=== PATIENT | female | born 1950 | race Hispanic/Latino ===

== ENCOUNTER 2017-08-08 06:05 | Inpatient (IN) | payer BC, MEDICARE ==
[2017-08-04 11:42] VITALS: BMI 40.1
[2017-08-08] MEDS ORDERED: Lidocaine 4% (Laryng-O-Jet) Kit MM ONE (07:17)
[2017-08-08] MEDS ORDERED: Succinylcholine 200 mg/10 ml Inj IV ONE (07:17)
[2017-08-08] MEDS ORDERED: Rocuronium 10 mg/ml (5 ml) ONE ×2 (07:17→10:19)
[2017-08-08] MEDS ORDERED: Etomidate 20 mg/10ml Inj IV ONE (07:18)
[2017-08-08] MEDS ORDERED: Lactated Ringer's 1,000 ML IV ONE ×3 (08:40→11:27)
[2017-08-08] MEDS ORDERED: Midazolam 2 MG/2 ML VIAL ONE (08:45)
[2017-08-08] MEDS ORDERED: Morphine 1 mg/ml preservative-free Inj(Duramorph) ONE (08:45)
[2017-08-08] MEDS ORDERED: ePHEDrine 50 mg/ml Inj ONE (09:26)
[2017-08-08] MEDS ORDERED: Desflurane Inhalation Anesthetic Liq (240 ml) ONE (10:32)
[2017-08-08] MEDS ORDERED: Neostigmine 1:1000 (1 mg/ml) Inj ONE (11:26)
[2017-08-08] MEDS ORDERED: Dexamethasone 4 mg/1 ml ONE (11:34)
[2017-08-08] MEDS ORDERED: Morphine 4 MG/ML VIAL IVP PRN (12:00)
--- NOTE | 2017-08-08 13:29 | PCM.SURG1 ---
Surgeon's Initial Post Op Note - Surgeon's Notes Surgeon: Lenin Ogden MD Taxi Driver Supervisor: Maylin Avila PA-C; Esther Rousseau Type of Anesthesia: General Endo, Spinal Pre-Operative Diagnosis: Right Hip Osteoarthritis Operative Findings: see op report Post-Operative Diagnosis: same as pre-op dx Operation Performed: R THR Specimen/Specimens Removed: right hip femoral head and soft tissue Estimated Blood Loss: EBL {In ML}: 200 Date of Surgery/Procedure: 08/08/17 Time of Surgery/Procedure: 09:45
[2017-08-08] MEDS ORDERED: Oxycodone/Acetaminophen 5/325 mg Tab PO PRN (13:35)
--- NOTE | 2017-08-08 14:34 | RAD ---
PROCEDURE: Left Hip X-ray Radiographs. HISTORY: s/p RTHR COMPARISON: None. FINDINGS: BONES: The pelvic ring is intact. There is no acute fracture or bone destruction. JOINTS: Status post total right hip arthroplasty. The left hip joint is preserved. SOFT TISSUES: There is soft tissue emphysema in the right periarticular soft tissues. OTHER FINDINGS: None. IMPRESSION: Status post total right hip arthroplasty with postsurgical changes in the periarticular soft tissues . No acute complications.
--- NOTE | 2017-08-08 15:10 | OP ---
PROCEDURE DATE: 08/08/2017 PREOPERATIVE DIAGNOSIS: Right hip osteoarthritis. POSTOPERATIVE DIAGNOSIS: Right hip osteoarthritis. PROCEDURE: Right total hip replacement. ATTENDING SURGEON: Lenin Ogden MD MANAGING CONSULTANT: Maylin Rodrigues PA-C IMPLANTS SIZE: Stoney 48 mm Tritanium cup, size 7 Accolade II stem with high-offset, MDM liner with 0 neck length. ANESTHESIA TYPE: Spinal and general. ESTIMATED BLOOD LOSS: 300 mL. COMPLICATIONS: None. HISTORY: Patient with long standing history of right hip pain refractory of conservative management. X-ray had shown significant loss of joint space. After the failure of extensive conservative management, I had offered the patient the treatment option of total hip replacement. I reviewed the risk and benefits of the surgery with the patient in detail. The risks include, but not limited to bleeding, infection, nerve vessel damage, continuous pain, blood loss, instability, dislocation, iatrogenic fracture, blood clots, need for further surgery, and even . The patient fully understood the risks and benefits and opted to proceed. Patient underwent necessary preoperative medical workup and once medically cleared, was scheduled for the procedure. DESCRIPTION OF PROCEDURE: On the day of the surgery, the patient was admitted to preoperative holding area. A laterality sheet was completed, confirming correct operative site. An informed consent was signed from the patient and the correct operative hip was marked. Patient was brought into the operating room table. He underwent general anesthesia and spinal anesthesia. Afterwards, the patient was placed on the operating room table in lateral decubitus position. All the bony prominences were well padded and an axillary roll was also placed. The hip was draped and prepped in the standard sterile manner. Timeout was completed, confirming correct operative site. We proceeded with Navigation assisted total hip replacement. Two pins were placed in the iliac crest to attach the antenna. Additional checkpoint was placed on the greater trochanter and on top of the acetabular roof. We utilized a standard postero-lateral approach. Using a #10 blade, a skin incision was made. The soft tissue dissection was taken down until the IT band fascia was identified incised along it's fibers. The short external rotators were exposed and excised with the capsule. It was tagged wit heavy sutures preserved for a later repair. Afterwards, the hip was dislocated and proposed neck cut was made. The Acetabulum was exposed using standard retractors. The remnant of torn labrum was excised along with pulvinar. The acetabulum was reamed using motorized reamers to the size that provide adequate depth and coverage. Next, 48 mm cup was securely fixed in to the acetabular socket in appropriate version and inclination. A polyethylene liner was secured in to the acetubular cup. The femoral canal was exposed using standard retractors. Using the box chisel, lateral femoral neck was removed. Femoral canal was broached up to size 7 stem, which provide a secure fit and adequate fill of femoral canal. A high-offset trial neck was secured onto the broach. Different trial heads with variable neck lengths were secured onto the trial neck. The hip was reduced and taken through extensive range of motion to test stability, soft tissue tensioning and leg length. It was noted the MDM liner with 0 neck length provide adequate stability, soft tissue tensioning and length. Next, size 7 stem with high-offset was securely fixed, then a MDM liner with 0 neck length was secured onto the neck of femoral stem. Hip was reduced and taken through final range of motion to assess for stability, soft tissue tensioning and leg length which was found to be satisfactory. Finally, the wound was copiously irrigated using pulse lavage solution. All loose bodies were removed. The short external rotators were repaired to greater trochanter using drill holes and heavy sutures. IT band fascia was tightly closed using heavy sutures and rest the wound was closed standard manner. Sterile dressing was applied. Patient was transferred to stretcher. Post-op instructions included posterior hip precautions. During this procedure, I was assisted by Maylin Rodrigues PA-C, who assisted in positioning the patient on the operating room table as well as transferring the patient from the operating room table to the recovery room stretcher. In addition, Maylin Rodrigues PA-C assisted me during the actual operative procedure by positioning, protecting critical neurovascular structures, exposure of the joint, and proper positioning of the implants. The presence of Maylin Rodrigues PA-C as my operative accounting administrative assistant was medically necessary to ensure the utmost safety of the patient in the pre, intra-, and post-operative periods. Due to the patient's morbid obesity, this procedure was more difficult than a standard knee arthroscopy. This required extra time during prepping and draping, as well as an extended operative time. The length of the case was prolonged by 50%. Lenin Ogden MD
--- NOTE | 2017-08-08 15:40 | CP.PCM.HP ---
<Dago Hollins - Last Filed: 08/08/17 15:38> History of Present Illness - History of Present Illness History of Present Illness: CC: Right total hip replacement HPI: 67 y/o woman w/ pmh of HTN and DM2 presents for right total hip replacement. The patient is in PACU recovering and reports no complaints other than mild pain after the procedure. The patient denies headaches, chest pain, SOB, abdominal pain, nausea, vomiting, or fever. PMD: Dr. Jose PMH: HTN, DM2 meds: see med list PSH: lumbar spinal fusion 2015, cervical spinal fusion 2012 Fam: denies SOC: denies smoking, alcohol, and drugs ROS: 12 points assessed and negative unless otherwise reported in HPI Present on Admission - Present on Admission Any Indicators Present on Admission: No History of DVT/PE: No History of Uncontrolled Diabetes: No Urinary Catheter: No Decubitus Ulcer Present: No Review of Systems - Review of Systems All systems: reviewed and no additional remarkable complaints except - Constitutional Constitutional: absent: Chills, Fever - EENT Eyes: absent: Change in Vision - Cardiovascular Cardiovascular: absent: Chest Pain - Respiratory Respiratory: absent: Dyspnea, Wheezing - Gastrointestinal Gastrointestinal: absent: Abdominal Pain, Diarrhea, Nausea, Vomiting - Genitourinary Genitourinary: absent: Dysuria - Integumentary Integumentary: absent: Rash - Neurological Neurological: absent: Dizziness Past Patient History - Past Medical History & Family History Past Medical History?: Yes - Past Social History Smoking Status: Never Smoked - CARDIAC Hx Cardiac Disorders: Yes Hx Congestive Heart Failure: No Hx Hypercholesterolemia: Yes Hx Hypertension: Yes - PULMONARY Hx Respiratory Disorders: No Hx Chronic Obstructive Pulmonary Disease (COPD): No - NEUROLOGICAL Hx Neurological Disorder: No HX Cerebrovascular Accident: No - HEENT Hx HEENT Problems: No - RENAL Hx Chronic Kidney Disease: No Hx Renal Failure: No - ENDOCRINE/METABOLIC Hx Endocrine Disorders: Yes Hx Diabetes Mellitus Type 1: Yes Hx Diabetes Mellitus Type 2: Yes Hx Hypothyroidism: No - HEMATOLOGICAL/ONCOLOGICAL Hx Blood Disorders: No - INTEGUMENTARY Hx Dermatological Problems: No - MUSCULOSKELETAL/RHEUMATOLOGICAL Hx Musculoskeletal Disorders: Yes Hx Arthritis: Yes (knees,left hand) Hx Falls: No Hx Rheumatoid Arthritis: No - GASTROINTESTINAL Hx Gastrointestinal Disorders: No Hx Colitis: Yes Hx Gastritis: Yes Other/Comment: Stomach mass - GENITOURINARY/GYNECOLOGICAL Hx Genitourinary Disorders: No - PSYCHIATRIC Hx Psychophysiologic Disorder: No Hx Substance Use: No - SURGICAL HISTORY Hx Surgeries: Yes Hx Hysterectomy: Yes Other/Comment: laminectomy,cervical neck disection - ANESTHESIA Hx Anesthesia: Yes Hx Anesthesia Reactions: No Hx Malignant Hyperthermia: No Has any member of the family had a problem w/ anesthesia?: No Meds Allergies/Adverse Reactions: Allergies Allergy/AdvReac Type Severity Reaction Status Date / Time No Known Allergies Allergy Verified 08/08/17 07:50 Physical Exam - Constitutional Appears: Non-toxic, No Acute Distress - Head Exam Head Exam: ATRAUMATIC, NORMAL INSPECTION, NORMOCEPHALIC - Eye Exam Eye Exam: Normal appearance - ENT Exam ENT Exam: Mucous Membranes Moist - Neck Exam Neck exam: Positive for: Full Rom. Negative for: Tenderness - Respiratory Exam Respiratory Exam: Clear to Auscultation Bilateral, NORMAL BREATHING PATTERN. absent: Decreased Breath Sounds, Rales, Rhonchi, Wheezes, Respiratory Distress - Cardiovascular Exam Cardiovascular Exam: REGULAR RHYTHM. absent: Tachycardia - GI/Abdominal Exam GI & Abdominal Exam: Normal Bowel Sounds, Soft. absent: Distended, Tenderness - Extremities Exam Extremities exam: Negative for: calf tenderness, tenderness Additional comments: right hip total replacement dressed, c/d/i - Neurological Exam Neurological exam: Alert, Oriented x3 - Skin Skin Exam: Dry, Intact, Normal Color, Warm Results - Vital Signs Recent Vital Signs: Last Vital Signs Temp 98.6 F 08/08/17 15:22 Pulse 55 L 08/08/17 15:22 Resp 18 08/08/17 15:22 BP 122/72 08/08/17 15:22 Pulse Ox 98 08/08/17 15:22 - Labs Labs: Laboratory Results - last 24 hr 08/08/17 08/08/17 08/08/17 06:50 07:42 12:09 POC Glucose (mg/dL) 114 H 107 Blood Type A POSITIVE Antibody Screen Negative Crossmatch See Detail BBK History Checked Patient has bt Assessment & Plan (1) Status post right hip replacement Status: Acute (2) Diabetes mellitus Status: Chronic Priority: Low (3) Hypertension Status: Chronic Priority: Low - Assessment and Plan (Free Text) Plan: c/w present management pain management - oxycontin 10 mg PO Q12h - percocet 1 tab PO Q4h prn - toradol 15 mg IM Q8h IVF LR @ 100mL/H <Chevy Jose L - Last Filed: 08/10/17 20:39> Results - Vital Signs Recent Vital Signs: Last Vital Signs Temp 98.2 F 08/10/17 18:10 Pulse 94 H 08/10/17 16:37 Resp 18 08/10/17 16:01 BP 98/63 L 08/10/17 16:40 Pulse Ox 93 L 08/10/17 16:01 - Labs Result Diagrams: 08/10/17 05:30 08/10/17 05:30 Labs: Laboratory Results - last 24 hr 08/09/17 08/10/17 08/10/17 21:50 05:30 05:30 WBC 9.6 RBC 3.12 L Hgb 9.3 L Hct 27.8 L MCV 89.0 MCH 29.8 MCHC 33.5 RDW 13.9 Plt Count 101 L D MPV 11.4 Neut % (Auto) 78.3 H Lymph % (Auto) 10.0 L [place] % (Auto) 10.6 H Eos % (Auto) 0.8 Baso % (Auto) 0.3 Neut # (Auto) 7.5 H Lymph # (Auto) 1.0 [place] # (Auto) 1.0 H Eos # (Auto) 0.1 Baso # (Auto) 0.0 Sodium 138 Potassium 4.2 Chloride 103 Carbon Dioxide 24 Anion Gap 15 BUN 28 H Creatinine 1.9 H Est GFR ( Amer) 32 Est GFR (Non-Af Amer) 26 POC Glucose (mg/dL) 160 H Random Glucose 125 H Calcium 8.7 08/10/17 08/10/17 08/10/17 05:55 10:40 15:50 WBC RBC Hgb Hct MCV MCH MCHC RDW Plt Count MPV Neut % (Auto) Lymph % (Auto) [place] % (Auto) Eos % (Auto) Baso % (Auto) Neut # (Auto) Lymph # (Auto) [place] # (Auto) Eos # (Auto) Baso # (Auto) Sodium Potassium Chloride Carbon Dioxide Anion Gap BUN Creatinine Est GFR ( Amer) Est GFR (Non-Af Amer) POC Glucose (mg/dL) 121 H 207 H 143 H Random Glucose Calcium Assessment & Plan - Assessment and Plan (Free Text) Plan: I was present during evaluation and discussed with DR Gurvinder benjamin of [facility] and mgt. Chevy Jose M.D.
[2017-08-08] MEDS: Lactated Ringer's 1,000 ML IV SCH ×2 (16:44→22:00)
[2017-08-08] MEDS ORDERED: ceFAZolin 1 GM in Sodium Chloride 0.9% 100 ML IVPB ONE (17:30)
[2017-08-08] MEDS: oxyCODONE 10 mg ER Tab (oxyCONTIN) PO SCH (21:24)
[2017-08-09] MEDS ORDERED: ceFAZolin 1 GM in Sodium Chloride 0.9% 100 ML IVPB ONE (01:30)
[2017-08-09] MEDS: Lactated Ringer's 1,000 ML IV SCH ×3 (07:01→20:51)
[2017-08-09 07:06] LABS: BASO % 0.2 % (0.0-2.0); LYMPH # 0.7 K/uL (1.0-4.3); LYMPH % 4.8 % (20.0-40.0); MEAN CELL VOLUME 89.1 fl (81.0-99.0); MEAN CORPUSCULAR HEMOGLOBIN 29.9 pg (27.0-31.0); MEAN CORPUSCULAR HGB CONC 33.5 g/dL (33.0-37.0); MEAN PLATELET VOLUME 12.2 fl (7.2-11.7); MONO # 1.2 K/uL (0.0-0.8); MONO % 8.4 % (0.0-10.0); NEUT # 12.1 K/uL (1.8-7.0); NEUT % 86.6 % (50.0-75.0); PLATELET COUNT 157 K/uL (130-400); RBC 3.68 Mil/uL (3.80-5.20); RED CELL DISTRIBUTION WIDTH 13.9 % (11.5-14.5); WHITE BLOOD COUNT 13.9 K/uL (4.8-10.8)
[2017-08-09 07:12] LABS: CALCIUM 9.1 mg/dL (8.4-10.2)
[2017-08-09] MEDS: oxyCODONE 10 mg ER Tab (oxyCONTIN) PO SCH ×2 (08:54→20:51)
--- NOTE | 2017-08-09 08:57 | CP.PCM.PN ---
Subjective - Date & Time of Evaluation Date of Evaluation: 08/09/17 Time of Evaluation: 08:30 - Subjective Subjective: S/P RTHR POD#1 Pt seen and examined at bedside with Dr. Ogden, pt comfortable in bed Pt denies any current right hip pain, well controlled with pain meds Pt denies SOB, chest pain, N/V/D, numbness/tingling to RLE Objective - Vital Signs/Intake and Output Vital Signs (last 24 hours): Temp Pulse Resp BP Pulse Ox 97.9 F 88 20 102/68 94 L 08/09/17 08:09 08/09/17 08:09 08/09/17 08:09 08/09/17 08:09 08/09/17 08:09 - Medications Medications: Current Medications Acetaminophen (Tylenol 325mg Tab) 325 mg PO Q4 PRN PRN Reason: pain1-3 Celecoxib (Celebrex) 100 mg PO Q12 [facility] Last Admin: 08/09/17 08:44 Dose: 100 mg Docusate Sodium (Colace) 100 mg PO TID [facility] Last Admin: 08/09/17 08:44 Dose: 100 mg Enoxaparin Sodium (Lovenox) 30 mg SC DAILY [facility] PRN Reason: Protocol Lactated Ringer's (Lactated Ringer's) 1,000 mls @ 100 mls/hr IV .Q10H [facility] Last Admin: 08/09/17 07:01 Dose: 100 mls/hr Ketorolac Tromethamine (Toradol) 15 mg IM Q8 [facility] Stop: 08/10/17 23:59 Last Admin: 08/09/17 08:44 Dose: 15 mg Oxycodone HCl (Oxycontin Extended Release Tab) 10 mg PO Q12 [facility] Stop: 08/22/17 09:01 Last Admin: 08/08/17 21:24 Dose: 10 mg Oxycodone/Acetaminophen (Percocet 5/325 Mg Tab) 1 tab PO Q4 PRN PRN Reason: pain4-6 Stop: 08/11/17 13:36 - Labs Labs: 08/09/17 05:30 08/09/17 05:30 - Constitutional Appears: Well, No Acute Distress - Respiratory Exam Respiratory Exam: Clear to Ausculation Bilateral, NORMAL BREATHING PATTERN - Cardiovascular Exam Cardiovascular Exam: REGULAR RHYTHM, RRR - Extremities Exam Additional comments: RLE: Hip dressing C/D/I, pravena dressing in place, functioning well, no active drainage N/V intact distally Calves soft and nontender b/l Normal ROM at ankle Distal pulses wnl Assessment and Plan - Assessment and Plan (Free Text) Assessment: 67 yo F s/p RTHR POD#1 Plan: Pain Control DVT ppx- lovenox 40mg Daily Incentive Spirometer PT/OT- WBAT RLE Follow posterior hip precautions F/U labs
[2017-08-09 10:38] LABS: BANDS 4 % (0-2); HYPOCHROMIC SLIGHT; LYMPHOCYTE 2 % (20-50); MONOCYTE 3 % (0-10); NEUTROPHIL 91 % (42-75); PLATELET ESTIMATE NORMAL (NORMAL); TOTAL CELLS COUNTED 100
[2017-08-09] MEDS ORDERED: Glucagon Recombinant 1 mg Inj IM PRN (11:22)
[2017-08-09] MEDS ORDERED: Dextrose 50% SYRINGE Inj (50 ml) IV PRN (11:22)
[2017-08-09] MEDS: Insulin Regular 100 units/ml SC SCH ×3 (12:44→22:37)
--- NOTE | 2017-08-09 14:33 | CP.PCM.PN ---
<Dago Hollins - Last Filed: 08/09/17 14:30> Subjective - Date & Time of Evaluation Date of Evaluation: 08/09/17 Time of Evaluation: 11:05 - Subjective Subjective: Patient seen and examined this morning at bedside. There are no acute events overnight, NAD. Patient is s/p right total hip replacement POD1. The patient denies pain and is not requesting pain medication. Patient attempted to get up for physical therapy but became dizzy and needed to sit back down. Patient has wound vac w/ minimal drainage Objective - Vital Signs/Intake and Output Vital Signs (last 24 hours): Temp Pulse Resp BP Pulse Ox 97.9 F 88 20 102/68 94 L 08/09/17 09:00 08/09/17 08:09 08/09/17 08:09 08/09/17 08:09 08/09/17 08:09 - Medications Medications: Current Medications Acetaminophen (Tylenol 325mg Tab) 325 mg PO Q4 PRN PRN Reason: pain1-3 Amlodipine Besylate (Norvasc) 5 mg PO DAILY [facility] Last Admin: 08/09/17 11:22 Dose: Not Given Carvedilol (Coreg) 6.25 mg PO BID [facility] Celecoxib (Celebrex) 100 mg PO Q12 [facility] Last Admin: 08/09/17 08:44 Dose: 100 mg Dextrose (Dextrose 50% Inj) 0 ml IV STAT PRN; Protocol PRN Reason: Hypoglycemia Protocol Dextrose (Glutose 15) 0 gm PO ONCE PRN; Protocol PRN Reason: Hypoglycemia Protocol Docusate Sodium (Colace) 100 mg PO TID [facility] Last Admin: 08/09/17 12:43 Dose: 100 mg Enoxaparin Sodium (Lovenox) 30 mg SC DAILY [facility] PRN Reason: Protocol Epoetin Nish (Procrit) 10,000 unit SC TTS [facility] Ferrous Sulfate (Feosol) 325 mg PO TID [facility] Last Admin: 08/09/17 12:43 Dose: 325 mg Gabapentin (Neurontin) 300 mg PO HS [facility] Glipizide (Glucotrol) 5 mg PO DAILY [facility] Last Admin: 08/09/17 11:24 Dose: 5 mg Glucagon (Glucagen Diagnostic Kit) 0 mg IM STAT PRN; Protocol PRN Reason: Hypoglycemia Protocol Lactated Ringer's (Lactated Ringer's) 1,000 mls @ 150 mls/hr IV .Q6H40M [facility] Insulin Human Regular (Humulin R) 0 units SC ACHS [facility] PRN Reason: Protocol Last Admin: 08/09/17 12:44 Dose: 2 u Ketorolac Tromethamine (Toradol) 15 mg IM Q8 [facility] Stop: 08/10/17 23:59 Last Admin: 08/09/17 08:44 Dose: 15 mg Losartan Potassium (Cozaar) 25 mg PO DAILY [facility] Last Admin: 08/09/17 11:22 Dose: Not Given Oxycodone HCl (Oxycontin Extended Release Tab) 10 mg PO Q12 [facility] Stop: 08/22/17 09:01 Last Admin: 08/09/17 08:54 Dose: Not Given Oxycodone/Acetaminophen (Percocet 5/325 Mg Tab) 1 tab PO Q4 PRN PRN Reason: pain4-6 Stop: 08/11/17 13:36 - Labs Labs: 08/09/17 05:30 08/09/17 05:30 - Constitutional Appears: Non-toxic, No Acute Distress - Head Exam Head Exam: ATRAUMATIC, NORMAL INSPECTION, NORMOCEPHALIC - Eye Exam Eye Exam: Normal appearance - ENT Exam ENT Exam: Mucous Membranes Moist - Neck Exam Neck Exam: Full ROM. absent: Tenderness - Respiratory Exam Respiratory Exam: Clear to Ausculation Bilateral. absent: Accessory Muscle Use , Decreased Breath Sounds, Rales, Rhonchi, Wheezes, Respiratory Distress - Cardiovascular Exam Cardiovascular Exam: REGULAR RHYTHM. absent: Tachycardia - GI/Abdominal Exam GI & Abdominal Exam: Soft, Normal Bowel Sounds. absent: Distended, Tenderness - Extremities Exam Extremities Exam: absent: Calf Tenderness, Pedal Edema, Tenderness Additional comments: right hip dressing c/d/i, wound vac draining minimal fluid - Neurological Exam Neurological Exam: Alert, Awake, Oriented x3 - Skin Skin Exam: Dry, Intact, Normal Color, Warm Assessment and Plan (1) Status post right hip replacement Status: Acute (2) Diabetes mellitus Status: Chronic (3) Hypertension Status: Chronic - Assessment and Plan (Free Text) Plan: c/w present management pain management - oxycontin 10 mg PO Q12h - percocet 1 tab PO Q4h prn IVF LR @ 150mL/H Elevated Cr, hold NSAIDs Incentive Spirometer PT/OT- WBAT RLE F/U labs DVT ppx: lovenox 40mg SC Daily <Chevy Jose L - Last Filed: 08/10/17 20:40> Objective - Vital Signs/Intake and Output Vital Signs (last 24 hours): Temp Pulse Resp BP Pulse Ox 98.2 F 94 H 18 98/63 L 93 L 08/10/17 18:10 08/10/17 16:37 08/10/17 16:01 08/10/17 16:40 08/10/17 16:01 - Medications Medications: Current Medications Acetaminophen (Tylenol 325mg Tab) 325 mg PO Q4 PRN PRN Reason: pain1-3 Acetaminophen (Tylenol 325mg Tab) 650 mg PO Q4 PRN PRN Reason: Fever >100.4 F Last Admin: 08/10/17 17:20 Dose: 650 mg Amlodipine Besylate (Norvasc) 5 mg PO DAILY [facility] Last Admin: 08/10/17 11:53 Dose: 5 mg Amoxicillin/Clavulanate Potassium (Augmentin 875 Mg-125 Mg Tab) 1 tab PO Q12 [facility] PRN Reason: Protocol Carvedilol (Coreg) 6.25 mg PO BID [facility] Last Admin: 08/10/17 16:37 Dose: Not Given Dextrose (Dextrose 50% Inj) 0 ml IV STAT PRN; Protocol PRN Reason: Hypoglycemia Protocol Dextrose (Glutose 15) 0 gm PO ONCE PRN; Protocol PRN Reason: Hypoglycemia Protocol Docusate Sodium (Colace) 100 mg PO TID [facility] Last Admin: 08/10/17 16:34 Dose: 100 mg Enoxaparin Sodium (Lovenox) 30 mg SC DAILY [facility] PRN Reason: Protocol Last Admin: 08/10/17 11:56 Dose: 30 mg Epoetin Nish (Procrit) 10,000 unit SC TTS [facility] Last Admin: 08/10/17 12:05 Dose: 10,000 unit Ferrous Sulfate (Feosol) 325 mg PO TID [facility] Last Admin: 08/10/17 16:35 Dose: 325 mg Gabapentin (Neurontin) 300 mg PO HS [facility] Last Admin: 08/09/17 22:47 Dose: 300 mg Glipizide (Glucotrol) 5 mg PO DAILY [facility] Last Admin: 08/10/17 11:52 Dose: 5 mg Glucagon (Glucagen Diagnostic Kit) 0 mg IM STAT PRN; Protocol PRN Reason: Hypoglycemia Protocol Lactated Ringer's (Lactated Ringer's) 1,000 mls @ 150 mls/hr IV .Q6H40M [facility] Last Admin: 08/10/17 16:40 Dose: Not Given Insulin Human Regular (Humulin R) 0 units SC ACHS [facility] PRN Reason: Protocol Last Admin: 08/10/17 16:39 Dose: Not Given Losartan Potassium (Cozaar) 25 mg PO DAILY [facility] Last Admin: 08/10/17 11:52 Dose: 25 mg Oxycodone HCl (Oxycontin Extended Release Tab) 10 mg PO Q12 [facility] Stop: 08/22/17 09:01 Last Admin: 08/10/17 12:05 Dose: 10 mg Oxycodone/Acetaminophen (Percocet 5/325 Mg Tab) 1 tab PO Q4 PRN PRN Reason: pain4-6 Stop: 08/11/17 13:36 - Labs Labs: 08/10/17 05:30 08/10/17 05:30 Assessment and Plan - Assessment and Plan (Free Text) Plan: I was present during evaluation and discussed with Dr Hollins re plans of care and tx Chevy Jose M.D.
[2017-08-09] MEDS: Enoxaparin 30 mg Syringe SC SCH (22:48)
[2017-08-10] MEDS: Lactated Ringer's 1,000 ML IV SCH ×3 (03:36→16:40)
[2017-08-10 07:39] LABS: CALCIUM 8.7 mg/dL (8.4-10.2)
[2017-08-10 07:42] LABS: BASO % 0.3 % (0.0-2.0); EOS # 0.1 K/uL (0.0-0.7); EOS % 0.8 % (0.0-4.0); HEMOGLOBIN 9.3 g/dL (12.0-16.0); MEAN CORPUSCULAR HEMOGLOBIN 29.8 pg (27.0-31.0); MEAN CORPUSCULAR HGB CONC 33.5 g/dL (33.0-37.0); MEAN PLATELET VOLUME 11.4 fl (7.2-11.7); MONO % 10.6 % (0.0-10.0); NEUT # 7.5 K/uL (1.8-7.0); NEUT % 78.3 % (50.0-75.0); RBC 3.12 Mil/uL (3.80-5.20); RED CELL DISTRIBUTION WIDTH 13.9 % (11.5-14.5); WHITE BLOOD COUNT 9.6 K/uL (4.8-10.8)
[2017-08-10] MEDS: Insulin Regular 100 units/ml SC SCH ×3 (08:14→16:39)
[2017-08-10] MEDS ORDERED: EPOETIN ALFA 10,000 UNIT/ML ML SC SCH (09:00)
[2017-08-10 09:06] VITALS: PULSE 94
--- NOTE | 2017-08-10 09:36 | CP.PCM.PN ---
<Dago Hollins - Last Filed: 08/10/17 14:52> Subjective - Date & Time of Evaluation Date of Evaluation: 08/10/17 Time of Evaluation: 08:50 - Subjective Subjective: Patient seen and examined this morning at bedside. There are no acute events overnight, NAD. Patient is s/p right total hip replacement POD2. The patient denies pain and is not requesting pain medication. Patient tried PT again and was able to participate. Wound vac draining minimal serosanguinous fluid. Patient has no complaints. Objective - Vital Signs/Intake and Output Vital Signs (last 24 hours): Temp Pulse Resp BP Pulse Ox 98.5 F 94 H 20 122/75 96 08/10/17 09:06 08/10/17 09:06 08/10/17 09:06 08/10/17 09:06 08/10/17 09:06 - Medications Medications: Current Medications Acetaminophen (Tylenol 325mg Tab) 325 mg PO Q4 PRN PRN Reason: pain1-3 Amlodipine Besylate (Norvasc) 5 mg PO DAILY [facility] Last Admin: 08/09/17 11:22 Dose: Not Given Carvedilol (Coreg) 6.25 mg PO BID [facility] Last Admin: 08/09/17 17:38 Dose: 6.25 mg Celecoxib (Celebrex) 100 mg PO Q12 [facility] Last Admin: 08/09/17 08:44 Dose: 100 mg Dextrose (Dextrose 50% Inj) 0 ml IV STAT PRN; Protocol PRN Reason: Hypoglycemia Protocol Dextrose (Glutose 15) 0 gm PO ONCE PRN; Protocol PRN Reason: Hypoglycemia Protocol Docusate Sodium (Colace) 100 mg PO TID [facility] Last Admin: 08/09/17 17:38 Dose: 100 mg Enoxaparin Sodium (Lovenox) 30 mg SC DAILY [facility] PRN Reason: Protocol Last Admin: 08/09/17 22:48 Dose: 30 mg Epoetin Nish (Procrit) 10,000 unit SC TTS [facility] Ferrous Sulfate (Feosol) 325 mg PO TID [facility] Last Admin: 08/09/17 17:38 Dose: 325 mg Gabapentin (Neurontin) 300 mg PO HS [facility] Last Admin: 08/09/17 22:47 Dose: 300 mg Glipizide (Glucotrol) 5 mg PO DAILY [facility] Last Admin: 08/09/17 11:24 Dose: 5 mg Glucagon (Glucagen Diagnostic Kit) 0 mg IM STAT PRN; Protocol PRN Reason: Hypoglycemia Protocol Lactated Ringer's (Lactated Ringer's) 1,000 mls @ 150 mls/hr IV .Q6H40M [facility] Last Admin: 08/10/17 03:36 Dose: 150 mls/hr Insulin Human Regular (Humulin R) 0 units SC ACHS [facility] PRN Reason: Protocol Last Admin: 08/09/17 22:37 Dose: Not Given Ketorolac Tromethamine (Toradol) 15 mg IM Q8 [facility] Stop: 08/10/17 23:59 Last Admin: 08/09/17 08:44 Dose: 15 mg Losartan Potassium (Cozaar) 25 mg PO DAILY [facility] Last Admin: 08/09/17 11:22 Dose: Not Given Oxycodone HCl (Oxycontin Extended Release Tab) 10 mg PO Q12 [facility] Stop: 08/22/17 09:01 Last Admin: 08/09/17 20:51 Dose: 10 mg Oxycodone/Acetaminophen (Percocet 5/325 Mg Tab) 1 tab PO Q4 PRN PRN Reason: pain4-6 Stop: 08/11/17 13:36 - Labs Labs: 08/10/17 05:30 08/10/17 05:30 - Constitutional Appears: Non-toxic, No Acute Distress - Head Exam Head Exam: ATRAUMATIC, NORMAL INSPECTION, NORMOCEPHALIC - Eye Exam Eye Exam: Normal appearance - ENT Exam ENT Exam: Mucous Membranes Moist - Neck Exam Neck Exam: Full ROM. absent: Tenderness - Respiratory Exam Respiratory Exam: Clear to Ausculation Bilateral. absent: Accessory Muscle Use , Decreased Breath Sounds, Rales, Rhonchi, Wheezes - Cardiovascular Exam Cardiovascular Exam: REGULAR RHYTHM. absent: Tachycardia - GI/Abdominal Exam GI & Abdominal Exam: Soft, Normal Bowel Sounds. absent: Distended, Tenderness - Extremities Exam Extremities Exam: absent: Calf Tenderness, Pedal Edema, Tenderness Additional comments: right hip dressing c/d/i, wound vac draining minimal fluid - Neurological Exam Neurological Exam: Alert, Awake, Oriented x3 - Skin Skin Exam: Dry, Intact, Normal Color, Warm Assessment and Plan (1) Status post right hip replacement Status: Acute (2) Diabetes mellitus Status: Chronic (3) Hypertension Status: Chronic - Assessment and Plan (Free Text) Plan: c/w present management pain management - oxycontin 10 mg PO Q12h - percocet 1 tab PO Q4h prn IVF LR @ 150mL/H Elevated Cr, hold NSAIDs Incentive Spirometer PT/OT- WBAT RLE F/U labs DVT ppx: lovenox 40mg SC Daily patient awaiting discharge to TCU <JoseChevy Nu - Last Filed: 08/10/17 20:41> Objective - Vital Signs/Intake and Output Vital Signs (last 24 hours): Temp Pulse Resp BP Pulse Ox 98.2 F 94 H 18 98/63 L 93 L 08/10/17 18:10 08/10/17 16:37 08/10/17 16:01 08/10/17 16:40 08/10/17 16:01 - Medications Medications: Current Medications Acetaminophen (Tylenol 325mg Tab) 325 mg PO Q4 PRN PRN Reason: pain1-3 Acetaminophen (Tylenol 325mg Tab) 650 mg PO Q4 PRN PRN Reason: Fever >100.4 F Last Admin: 08/10/17 17:20 Dose: 650 mg Amlodipine Besylate (Norvasc) 5 mg PO DAILY [facility] Last Admin: 08/10/17 11:53 Dose: 5 mg Amoxicillin/Clavulanate Potassium (Augmentin 875 Mg-125 Mg Tab) 1 tab PO Q12 [facility] PRN Reason: Protocol Carvedilol (Coreg) 6.25 mg PO BID [facility] Last Admin: 08/10/17 16:37 Dose: Not Given Dextrose (Dextrose 50% Inj) 0 ml IV STAT PRN; Protocol PRN Reason: Hypoglycemia Protocol Dextrose (Glutose 15) 0 gm PO ONCE PRN; Protocol PRN Reason: Hypoglycemia Protocol Docusate Sodium (Colace) 100 mg PO TID [facility] Last Admin: 08/10/17 16:34 Dose: 100 mg Enoxaparin Sodium (Lovenox) 30 mg SC DAILY [facility] PRN Reason: Protocol Last Admin: 08/10/17 11:56 Dose: 30 mg Epoetin Nish (Procrit) 10,000 unit SC TTS [facility] Last Admin: 08/10/17 12:05 Dose: 10,000 unit Ferrous Sulfate (Feosol) 325 mg PO TID [facility] Last Admin: 08/10/17 16:35 Dose: 325 mg Gabapentin (Neurontin) 300 mg PO HS [facility] Last Admin: 08/09/17 22:47 Dose: 300 mg Glipizide (Glucotrol) 5 mg PO DAILY [facility] Last Admin: 08/10/17 11:52 Dose: 5 mg Glucagon (Glucagen Diagnostic Kit) 0 mg IM STAT PRN; Protocol PRN Reason: Hypoglycemia Protocol Lactated Ringer's (Lactated Ringer's) 1,000 mls @ 150 mls/hr IV .Q6H40M [facility] Last Admin: 08/10/17 16:40 Dose: Not Given Insulin Human Regular (Humulin R) 0 units SC ACHS [facility] PRN Reason: Protocol Last Admin: 08/10/17 16:39 Dose: Not Given Losartan Potassium (Cozaar) 25 mg PO DAILY [facility] Last Admin: 08/10/17 11:52 Dose: 25 mg Oxycodone HCl (Oxycontin Extended Release Tab) 10 mg PO Q12 [facility] Stop: 08/22/17 09:01 Last Admin: 08/10/17 12:05 Dose: 10 mg Oxycodone/Acetaminophen (Percocet 5/325 Mg Tab) 1 tab PO Q4 PRN PRN Reason: pain4-6 Stop: 08/11/17 13:36 - Labs Labs: 08/10/17 05:30 08/10/17 05:30 Assessment and Plan - Assessment and Plan (Free Text) Plan: I was present during evaluation and discussed with Dr Hollins re plans of care and mgt. Chevy Jose M.D.
[2017-08-10] MEDS: Enoxaparin 30 mg Syringe SC SCH (11:56)
[2017-08-10] MEDS: oxyCODONE 10 mg ER Tab (oxyCONTIN) PO SCH ×2 (12:05→20:48)
[2017-08-10 16:02] VITALS: RESP 18; O2SAT 93
[2017-08-10 16:38] VITALS: BP 98/63
[2017-08-10 18:10] VITALS: TEMP 98.2
[2017-08-10] MEDS ORDERED: Amoxicillin-Clav 875-125 mg Tab PO SCH (21:00)
== END 2017-08-10 21:30 | DRG 470 ==
LOC: H.OPSURG 06:05 → H.MEDSURG1 13:29
PROVIDERS: ADMIT Family Medicine; ATTEND Family Medicine
PROC: 0SR902Z Replacement of Right Hip Joint with Metal on Polyethylene Synthetic Substitute, Open Approach (ICD-10-PCS; principal; 2017-08-08 08:45)
DX: M16.11 Unilateral primary osteoarthritis, right hip (principal); Z68.41 Body mass index [BMI] 40.0-44.9, adult; E66.01 Morbid (severe) obesity due to excess calories; I10 Essential (primary) hypertension; E11.9 Type 2 diabetes mellitus without complications; E78.00 Pure hypercholesterolemia, unspecified; K29.70 Gastritis, unspecified, without bleeding; Z79.4 Long term (current) use of insulin; Z98.1 Arthrodesis status; Z90.710 Acquired absence of both cervix and uterus

== ENCOUNTER 2017-08-10 11:59 | Inpatient (IN) | payer BC, OTHER ==
[2017-08-04 11:42] VITALS: BMI 40.1
[2017-08-10 22:52] VITALS: RESP 20
[2017-08-11] MEDS ORDERED: Oxycodone/Acetaminophen 5/325 mg Tab PO PRN (00:57)
[2017-08-11] MEDS ORDERED: Amoxicillin-Clav 875-125 mg Tab PO ONE (01:18)
[2017-08-11] MEDS ORDERED: Dextrose 50% SYRINGE Inj (50 ml) IVP PRN (02:46)
[2017-08-11] MEDS ORDERED: Glucagon Recombinant 1 mg Inj IM PRN (03:10)
[2017-08-11] MEDS: Insulin Regular 100 units/ml SC SCH ×4 (07:47→21:55)
[2017-08-11] MEDS: Amoxicillin-Clav 875-125 mg Tab PO SCH ×2 (08:30→21:55)
--- NOTE | 2017-08-11 08:30 | CP.PCM.HP ---
<Dago Hollins - Last Filed: 08/11/17 13:49> History of Present Illness - History of Present Illness History of Present Illness: HPI: 67 y/o woman w/ pmh of HTN and DM2 is admitted to TCU for continuation of physical therapy s/p right total hip replacement. The patient is POD3 and reports no complaints other than mild pain at the surgical site. The patient denies headaches, dizziness, chest pain, SOB, abdominal pain, nausea, vomiting, or fever. Present on Admission - Present on Admission Any Indicators Present on Admission: No History of DVT/PE: No History of Uncontrolled Diabetes: No Urinary Catheter: No Decubitus Ulcer Present: No Review of Systems - Review of Systems All systems: reviewed and no additional remarkable complaints except - Constitutional Constitutional: absent: Chills, Fever - EENT Eyes: absent: Change in Vision - Cardiovascular Cardiovascular: absent: Chest Pain - Respiratory Respiratory: absent: Dyspnea - Gastrointestinal Gastrointestinal: absent: Abdominal Pain, Diarrhea, Nausea, Vomiting - Genitourinary Genitourinary: absent: Dysuria - Integumentary Integumentary: absent: Rash - Neurological Neurological: absent: Dizziness, Headaches Past Patient History - Past Medical History & Family History Past Medical History?: Yes - Past Social History Smoking Status: Never Smoked - CARDIAC Hx Hypertension: Yes - PULMONARY Hx Respiratory Disorders: No Hx Chronic Obstructive Pulmonary Disease (COPD): No - NEUROLOGICAL Hx Neurological Disorder: No HX Cerebrovascular Accident: No - HEENT Hx HEENT Problems: No - RENAL Hx Chronic Kidney Disease: No Hx Renal Failure: No - ENDOCRINE/METABOLIC Hx Diabetes Mellitus Type 2: Yes - HEMATOLOGICAL/ONCOLOGICAL Hx Blood Disorders: No Hx AIDS: No Hx Human Immunodeficiency Virus (HIV): No - INTEGUMENTARY Hx Dermatological Problems: No - MUSCULOSKELETAL/RHEUMATOLOGICAL Hx Arthritis: Yes Hx Falls: No - GASTROINTESTINAL Hx Gastrointestinal Disorders: No Hx Colitis: Yes Hx Gastritis: Yes Other/Comment: Stomach mass - GENITOURINARY/GYNECOLOGICAL Hx Genitourinary Disorders: No - PSYCHIATRIC Hx Psychophysiologic Disorder: No Hx Substance Use: No - SURGICAL HISTORY Hx Surgeries: Yes Hx Hysterectomy: Yes Other/Comment: laminectomy,cervical neck disection - ANESTHESIA Hx Anesthesia: Yes Hx Anesthesia Reactions: No Hx Malignant Hyperthermia: No Meds Allergies/Adverse Reactions: Allergies Allergy/AdvReac Type Severity Reaction Status Date / Time No Known Allergies Allergy Verified 08/08/17 07:50 Physical Exam - Constitutional Appears: Non-toxic, No Acute Distress - Head Exam Head Exam: ATRAUMATIC, NORMAL INSPECTION, NORMOCEPHALIC - Eye Exam Eye Exam: Normal appearance - ENT Exam ENT Exam: Mucous Membranes Moist - Neck Exam Neck exam: Positive for: Full Rom. Negative for: Tenderness - Respiratory Exam Respiratory Exam: Clear to Auscultation Bilateral. absent: Accessory Muscle Use , Decreased Breath Sounds, Rales, Rhonchi, Wheezes, Respiratory Distress - Cardiovascular Exam Cardiovascular Exam: REGULAR RHYTHM. absent: Tachycardia - GI/Abdominal Exam GI & Abdominal Exam: Normal Bowel Sounds, Soft. absent: Distended, Tenderness - Extremities Exam Extremities exam: Negative for: calf tenderness, pedal edema Additional comments: right hip dressing c/d/i, wound vac draining minimal fluid - Neurological Exam Neurological exam: Alert, Oriented x3 - Skin Skin Exam: Dry, Intact, Normal Color, Warm Results - Vital Signs Recent Vital Signs: Last Vital Signs Temp 98.4 F 08/11/17 07:54 Pulse 82 08/11/17 07:54 Resp 20 08/11/17 07:54 BP 140/55 L 08/11/17 07:54 Pulse Ox 98 08/11/17 07:54 - Labs Result Diagrams: 08/11/17 10:30 08/11/17 10:30 Labs: Laboratory Results - last 24 hr 08/11/17 06:03 POC Glucose (mg/dL) 159 H Assessment & Plan (1) Status post right hip replacement Status: Acute (2) Diabetes mellitus Status: Chronic Priority: Low (3) Hypertension Status: Chronic Priority: Low - Assessment and Plan (Free Text) Plan: c/w present management, POD3 pain management - oxycontin 10 mg PO Q12h - percocet 1 tab PO Q4h prn - gabapentin 300 mg PO HS augmentin 875 mg PO Q12h day 1 Elevated Cr, hold NSAIDs, improved Cr 1.3 today c/w epoetin lori insulin correction scale hypoglycemic protocol Incentive Spirometer c/w PT/OT PT/OT- WBAT RLE DC zuniga DVT ppx: lovenox 40mg SC Daily <Chevy Jose - Last Filed: 08/12/17 23:26> Results - Vital Signs Recent Vital Signs: Last Vital Signs Temp 97.8 F 08/12/17 22:42 Pulse 60 08/12/17 22:42 Resp 20 08/12/17 22:42 BP 132/47 L 08/12/17 22:42 Pulse Ox 95 08/12/17 22:42 - Labs Result Diagrams: 08/11/17 10:30 08/11/17 10:30 Labs: Laboratory Results - last 24 hr 08/12/17 08/12/17 08/12/17 06:06 11:04 16:13 POC Glucose (mg/dL) 118 H 184 H 140 H Assessment & Plan - Assessment and Plan (Free Text) Plan: I was present during evaluation and discussed with Dr Hollins re plans of care and mgt. Chevy Jose M.D.
[2017-08-11] MEDS: Enoxaparin 30 mg Syringe SC SCH (08:32)
[2017-08-11] MEDS: oxyCODONE 10 mg ER Tab (oxyCONTIN) PO SCH ×2 (08:33→21:54)
[2017-08-11 11:23] LABS: HEMOGLOBIN 9.4 g/dL (12.0-16.0); MEAN CELL VOLUME 90.2 fl (81.0-99.0); MEAN CORPUSCULAR HEMOGLOBIN 29.5 pg (27.0-31.0); MEAN CORPUSCULAR HGB CONC 32.8 g/dL (33.0-37.0); RBC 3.18 Mil/uL (3.80-5.20); RED CELL DISTRIBUTION WIDTH 13.9 % (11.5-14.5); WHITE BLOOD COUNT 11.1 K/uL (4.8-10.8)
[2017-08-11 11:38] LABS: ALB/GLOB RATIO 0.9 (1.0-2.1); ALBUMIN 2.9 g/dL (3.5-5.0); CALCIUM 8.9 mg/dL (8.4-10.2)
--- NOTE | 2017-08-11 12:27 | CP.PCM.CON ---
History of Present Illness - History of Present Illness History of Present Illness: 67 year old female admitted for TCU, with right hip replacement, dm, htn Review of Systems - Musculoskeletal Musculoskeletal: Abnormal Gait, Muscle Weakness Past Patient History - Past Medical History & Family History Past Medical History?: Yes - Past Social History Smoking Status: Never Smoked - CARDIAC Hx Hypertension: Yes - PULMONARY Hx Respiratory Disorders: No Hx Chronic Obstructive Pulmonary Disease (COPD): No - NEUROLOGICAL Hx Neurological Disorder: No HX Cerebrovascular Accident: No - HEENT Hx HEENT Problems: No - RENAL Hx Chronic Kidney Disease: No Hx Renal Failure: No - ENDOCRINE/METABOLIC Hx Diabetes Mellitus Type 2: Yes - HEMATOLOGICAL/ONCOLOGICAL Hx Blood Disorders: No Hx AIDS: No Hx Human Immunodeficiency Virus (HIV): No - INTEGUMENTARY Hx Dermatological Problems: No - MUSCULOSKELETAL/RHEUMATOLOGICAL Hx Arthritis: Yes Hx Falls: No - GASTROINTESTINAL Hx Gastrointestinal Disorders: No Hx Colitis: Yes Hx Gastritis: Yes Other/Comment: Stomach mass - GENITOURINARY/GYNECOLOGICAL Hx Genitourinary Disorders: No - PSYCHIATRIC Hx Psychophysiologic Disorder: No Hx Substance Use: No - SURGICAL HISTORY Hx Surgeries: Yes Hx Hysterectomy: Yes Other/Comment: laminectomy,cervical neck disection - ANESTHESIA Hx Anesthesia: Yes Hx Anesthesia Reactions: No Hx Malignant Hyperthermia: No Meds Allergies/Adverse Reactions: Allergies Allergy/AdvReac Type Severity Reaction Status Date / Time No Known Allergies Allergy Verified 08/08/17 07:50 - Medications Medications: Current Medications Acetaminophen (Tylenol 325mg Tab) 325 mg PO Q4 PRN PRN Reason: pain1-3 Amlodipine Besylate (Norvasc) 5 mg PO DAILY [facility] Last Admin: 08/11/17 08:32 Dose: 5 mg Amoxicillin/Clavulanate Potassium (Augmentin 875 Mg-125 Mg Tab) 1 tab PO Q12 [facility] PRN Reason: Protocol Last Admin: 08/11/17 08:30 Dose: 1 tab Carvedilol (Coreg) 6.25 mg PO BID [facility] Last Admin: 08/11/17 08:31 Dose: 6.25 mg Dextrose (Dextrose 50% Inj) 50 ml IVP ONCE PRN; Protocol PRN Reason: Hypoglycemia Dextrose (Glutose 15) 15 gm PO ONCE PRN PRN Reason: Hypoglycemia Docusate Sodium (Colace) 100 mg PO TID [facility] Last Admin: 08/11/17 12:21 Dose: 100 mg Enoxaparin Sodium (Lovenox) 30 mg SC DAILY [facility] PRN Reason: Protocol Last Admin: 08/11/17 08:32 Dose: 30 mg Epoetin Nish (Procrit) 10,000 unit SC TTS [facility] Ferrous Sulfate (Feosol) 325 mg PO TID [facility] Last Admin: 08/11/17 12:21 Dose: 325 mg Gabapentin (Neurontin) 300 mg PO HS [facility] Glipizide (Glucotrol) 5 mg PO DAILY [facility] Last Admin: 08/11/17 08:31 Dose: 5 mg Glucagon (Glucagen Diagnostic Kit) 1 mg IM STAT PRN PRN Reason: Hypoglycemia Insulin Human Regular (Humulin R) 0 units SC ACHS [facility] PRN Reason: Protocol Last Admin: 08/11/17 11:50 Dose: 1 u Lactulose (Enulose) 20 gm PO DAILY PRN PRN Reason: Constipation Losartan Potassium (Cozaar) 25 mg PO DAILY [facility] Last Admin: 08/11/17 08:31 Dose: 25 mg Ondansetron HCl (Zofran Inj) 4 mg IVP Q6 PRN PRN Reason: Nausea/Vomiting Last Admin: 08/11/17 12:20 Dose: 4 mg Oxycodone HCl (Oxycontin Extended Release Tab) 10 mg PO Q12 [facility] Stop: 08/14/17 09:01 Last Admin: 08/11/17 08:33 Dose: 10 mg Oxycodone/Acetaminophen (Percocet 5/325 Mg Tab) 1 tab PO Q4 PRN PRN Reason: pain4-6 Stop: 08/14/17 00:58 Last Admin: 08/11/17 07:14 Dose: 1 tab Physical Exam - Head Exam Head Exam: ATRAUMATIC, NORMAL INSPECTION - Eye Exam Eye Exam: EOMI, Normal appearance, PERRL Pupil Exam: NORMAL ACCOMODATION, PERRL - ENT Exam ENT Exam: Mucous Membranes Moist, Normal Exam - Neck Exam Neck exam: Positive for: Normal Inspection - Respiratory Exam Respiratory Exam: NORMAL BREATHING PATTERN - Cardiovascular Exam Cardiovascular Exam: REGULAR RHYTHM - GI/Abdominal Exam GI & Abdominal Exam: Normal Bowel Sounds - Rectal Exam Rectal Exam: NORMAL INSPECTION - Exam External exam: NORMAL EXTERNAL EXAM - Extremities Exam Extremities exam: Positive for: normal inspection Additional comments: right leg weakness with hip is healing with dressing - Back Exam Back exam: NORMAL INSPECTION - Neurological Exam Neurological exam: Alert, CN II-XII Intact - Psychiatric Exam Psychiatric exam: Normal Affect, Normal Mood - Skin Skin Exam: Dry, Intact Results - Vital Signs Recent Vital Signs: Last Vital Signs Temp 98.4 F 08/11/17 07:54 Pulse 82 08/11/17 08:32 Resp 20 08/11/17 07:54 BP 140/55 L 08/11/17 08:32 Pulse Ox 98 08/11/17 07:54 - Labs Result Diagrams: 08/11/17 10:30 08/11/17 10:30 Labs: Laboratory Results - last 24 hr 08/11/17 08/11/17 08/11/17 06:03 10:30 10:30 WBC 11.1 H RBC 3.18 L Hgb 9.4 L Hct 28.7 L MCV 90.2 MCH 29.5 MCHC 32.8 L RDW 13.9 Plt Count 136 Sodium 140 Potassium 4.2 Chloride 102 Carbon Dioxide 27 Anion Gap 15 BUN 19 H Creatinine 1.3 H Est GFR ( Amer) 49 Est GFR (Non-Af Amer) 41 POC Glucose (mg/dL) 159 H Random Glucose 147 H Calcium 8.9 Total Bilirubin 0.9 AST 19 ALT 22 Alkaline Phosphatase 71 Total Protein 5.9 L Albumin 2.9 L Globulin 3.1 Albumin/Globulin Ratio 0.9 L 08/11/17 10:50 WBC RBC Hgb Hct MCV MCH MCHC RDW Plt Count Sodium Potassium Chloride Carbon Dioxide Anion Gap BUN Creatinine Est GFR ( Amer) Est GFR (Non-Af Amer) POC Glucose (mg/dL) 166 H Random Glucose Calcium Total Bilirubin AST ALT Alkaline Phosphatase Total Protein Albumin Globulin Albumin/Globulin Ratio Assessment & Plan (1) Acute on chronic renal failure Status: Acute Priority: High (2) Hypercholesterolemia Status: Acute (3) Status post right hip replacement Assessment and Plan: monitor the dressing, physical, occupational therapy pain meds for patinet Status: Acute (4) Chronic diarrhea Status: Chronic Priority: Medium (5) Diabetes mellitus Status: Chronic Priority: Low (6) Hypertension Status: Chronic Priority: Low
--- NOTE | 2017-08-11 12:29 | CP.PCM.PN ---
Subjective - Date & Time of Evaluation Date of Evaluation: 08/11/17 Time of Evaluation: 12:15 - Subjective Subjective: S/P RTHR POD#3 Pt seen and examined at bedside, comfortable in bed Pt c/o mild right hip pain, currently well controlled with pain meds Pt reports trouble urinating post-op, currently has zuniga in place Pt denies SOB, chest pain, N/V/D, numbness/tinlging to RLE Objective - Vital Signs/Intake and Output Vital Signs (last 24 hours): Temp Pulse Resp BP Pulse Ox 98.4 F 82 20 140/55 L 98 08/11/17 07:54 08/11/17 08:32 08/11/17 07:54 08/11/17 08:32 08/11/17 07:54 - Medications Medications: Current Medications Acetaminophen (Tylenol 325mg Tab) 325 mg PO Q4 PRN PRN Reason: pain1-3 Amlodipine Besylate (Norvasc) 5 mg PO DAILY [facility] Last Admin: 08/11/17 08:32 Dose: 5 mg Amoxicillin/Clavulanate Potassium (Augmentin 875 Mg-125 Mg Tab) 1 tab PO Q12 [facility] PRN Reason: Protocol Last Admin: 08/11/17 08:30 Dose: 1 tab Carvedilol (Coreg) 6.25 mg PO BID [facility] Last Admin: 08/11/17 08:31 Dose: 6.25 mg Dextrose (Dextrose 50% Inj) 50 ml IVP ONCE PRN; Protocol PRN Reason: Hypoglycemia Dextrose (Glutose 15) 15 gm PO ONCE PRN PRN Reason: Hypoglycemia Docusate Sodium (Colace) 100 mg PO TID [facility] Last Admin: 08/11/17 12:21 Dose: 100 mg Enoxaparin Sodium (Lovenox) 30 mg SC DAILY [facility] PRN Reason: Protocol Last Admin: 08/11/17 08:32 Dose: 30 mg Epoetin Nish (Procrit) 10,000 unit SC TTS [facility] Ferrous Sulfate (Feosol) 325 mg PO TID [facility] Last Admin: 08/11/17 12:21 Dose: 325 mg Gabapentin (Neurontin) 300 mg PO HS [facility] Glipizide (Glucotrol) 5 mg PO DAILY [facility] Last Admin: 08/11/17 08:31 Dose: 5 mg Glucagon (Glucagen Diagnostic Kit) 1 mg IM STAT PRN PRN Reason: Hypoglycemia Insulin Human Regular (Humulin R) 0 units SC ACHS MARY PRN Reason: Protocol Last Admin: 08/11/17 11:50 Dose: 1 u Lactulose (Enulose) 20 gm PO DAILY PRN PRN Reason: Constipation Losartan Potassium (Cozaar) 25 mg PO DAILY [facility] Last Admin: 08/11/17 08:31 Dose: 25 mg Ondansetron HCl (Zofran Inj) 4 mg IVP Q6 PRN PRN Reason: Nausea/Vomiting Last Admin: 08/11/17 12:20 Dose: 4 mg Oxycodone HCl (Oxycontin Extended Release Tab) 10 mg PO Q12 [facility] Stop: 08/14/17 09:01 Last Admin: 08/11/17 08:33 Dose: 10 mg Oxycodone/Acetaminophen (Percocet 5/325 Mg Tab) 1 tab PO Q4 PRN PRN Reason: pain4-6 Stop: 08/14/17 00:58 Last Admin: 08/11/17 07:14 Dose: 1 tab - Labs Labs: 08/11/17 10:30 08/11/17 10:30 - Constitutional Appears: Well, No Acute Distress - Respiratory Exam Respiratory Exam: Clear to Ausculation Bilateral, NORMAL BREATHING PATTERN - Cardiovascular Exam Cardiovascular Exam: REGULAR RHYTHM, RRR - Extremities Exam Additional comments: RLE: Dressing C/D/I, pravena in place and functioning well, no active drainage Calves soft and nontender b/l N/V intact distally Normal ROM at ankle Distal pulses wnl Assessment and Plan - Assessment and Plan (Free Text) Assessment: 67 yo F s/p RTHR POD#3 Plan: Pain Control DVT ppx- continue lovenox Urinary retention- zuniga to be d/aiden today, TOV PT/OT- WBAT RLE Continue current management Discussed with Dr. Ogden
[2017-08-12] MEDS: Insulin Regular 100 units/ml SC SCH ×3 (06:56→17:02)
[2017-08-12] MEDS: Amoxicillin-Clav 875-125 mg Tab PO SCH (08:06)
[2017-08-12] MEDS: Enoxaparin 30 mg Syringe SC SCH (08:06)
[2017-08-12] MEDS: oxyCODONE 10 mg ER Tab (oxyCONTIN) PO SCH ×2 (09:00→20:44)
[2017-08-12] MEDS: EPOETIN ALFA 10,000 UNIT/ML ML SC SCH (12:23)
--- NOTE | 2017-08-12 23:27 | CP.PCM.PN ---
Subjective - Date & Time of Evaluation Date of Evaluation: 08/12/17 Time of Evaluation: 18:30 - Subjective Subjective: Patient continues to have problems with urination Had urinary retention yesterday Has no fever Today has vague lower abd / pelvic pains. Objective - Vital Signs/Intake and Output Vital Signs (last 24 hours): Temp Pulse Resp BP Pulse Ox 97.8 F 60 20 132/47 L 95 08/12/17 22:42 08/12/17 22:42 08/12/17 22:42 08/12/17 22:42 08/12/17 22:42 - Medications Medications: Current Medications Acetaminophen (Tylenol 325mg Tab) 325 mg PO Q4 PRN PRN Reason: pain1-3 Last Admin: 08/12/17 17:36 Dose: 325 mg Amlodipine Besylate (Norvasc) 5 mg PO DAILY [facility] Last Admin: 08/12/17 08:08 Dose: 5 mg Carvedilol (Coreg) 6.25 mg PO BID [facility] Last Admin: 08/12/17 17:01 Dose: 6.25 mg Dextrose (Dextrose 50% Inj) 50 ml IVP ONCE PRN; Protocol PRN Reason: Hypoglycemia Dextrose (Glutose 15) 15 gm PO ONCE PRN PRN Reason: Hypoglycemia Docusate Sodium (Colace) 100 mg PO TID [facility] Last Admin: 08/12/17 17:00 Dose: 100 mg Enoxaparin Sodium (Lovenox) 30 mg SC DAILY [facility] PRN Reason: Protocol Last Admin: 08/12/17 08:06 Dose: 30 mg Epoetin Nish (Procrit) 10,000 unit SC TTS [facility] Last Admin: 08/12/17 12:23 Dose: 10,000 unit Ferrous Sulfate (Feosol) 325 mg PO TID [facility] Last Admin: 08/12/17 17:01 Dose: 325 mg Gabapentin (Neurontin) 300 mg PO HS [facility] Last Admin: 08/12/17 21:29 Dose: 300 mg Glipizide (Glucotrol) 5 mg PO DAILY [facility] Last Admin: 08/12/17 08:07 Dose: 5 mg Glucagon (Glucagen Diagnostic Kit) 1 mg IM STAT PRN PRN Reason: Hypoglycemia Insulin Human Regular (Humulin R) 0 units SC ACHS [facility] PRN Reason: Protocol Last Admin: 08/12/17 17:02 Dose: Not Given Lactulose (Enulose) 20 gm PO DAILY PRN PRN Reason: Constipation Losartan Potassium (Cozaar) 25 mg PO DAILY [facility] Last Admin: 08/12/17 08:07 Dose: 25 mg Ondansetron HCl (Zofran Tab) 4 mg PO Q6 [facility] Oxycodone HCl (Oxycontin Extended Release Tab) 10 mg PO Q12 [facility] Stop: 08/14/17 09:01 Last Admin: 08/12/17 20:44 Dose: 10 mg Pantoprazole Sodium (Protonix Ec Tab) 40 mg PO DAILY [facility] - Labs Labs: 08/11/17 10:30 08/11/17 10:30
[2017-08-13] MEDS: Insulin Regular 100 units/ml SC SCH ×5 (03:42→21:32)
[2017-08-13 07:57] LABS: HEMOGLOBIN 8.5 g/dL (12.0-16.0); MEAN CELL VOLUME 89.1 fl (81.0-99.0); MEAN CORPUSCULAR HEMOGLOBIN 30.2 pg (27.0-31.0); MEAN CORPUSCULAR HGB CONC 33.9 g/dL (33.0-37.0); RBC 2.81 Mil/uL (3.80-5.20); RED CELL DISTRIBUTION WIDTH 13.7 % (11.5-14.5); WHITE BLOOD COUNT 6.6 K/uL (4.8-10.8)
[2017-08-13] MEDS: oxyCODONE 10 mg ER Tab (oxyCONTIN) PO SCH ×2 (09:19→21:33)
[2017-08-13] MEDS: Enoxaparin 30 mg Syringe SC SCH (09:23)
[2017-08-13] MEDS: Pantoprazole 40 mg EC Tab PO SCH (09:26)
--- NOTE | 2017-08-13 10:04 | CP.PCM.PN ---
Subjective - Date & Time of Evaluation Date of Evaluation: 08/12/17 Time of Evaluation: 17:00 - Subjective Subjective: no acute complaints of hip pain Objective - Vital Signs/Intake and Output Vital Signs (last 24 hours): Temp Pulse Resp BP Pulse Ox 97.5 F L 71 20 111/48 L 96 08/13/17 08:12 08/13/17 09:22 08/13/17 08:12 08/13/17 09:22 08/13/17 08:12 - Medications Medications: Current Medications Acetaminophen (Tylenol 325mg Tab) 325 mg PO Q4 PRN PRN Reason: pain1-3 Last Admin: 08/12/17 17:36 Dose: 325 mg Amlodipine Besylate (Norvasc) 5 mg PO DAILY [facility] Last Admin: 08/13/17 09:21 Dose: 5 mg Carvedilol (Coreg) 6.25 mg PO BID [facility] Last Admin: 08/13/17 09:21 Dose: 6.25 mg Dextrose (Dextrose 50% Inj) 50 ml IVP ONCE PRN; Protocol PRN Reason: Hypoglycemia Dextrose (Glutose 15) 15 gm PO ONCE PRN PRN Reason: Hypoglycemia Docusate Sodium (Colace) 100 mg PO TID [facility] Last Admin: 08/13/17 09:20 Dose: 100 mg Enoxaparin Sodium (Lovenox) 30 mg SC DAILY [facility] PRN Reason: Protocol Last Admin: 08/13/17 09:23 Dose: 30 mg Epoetin Nish (Procrit) 10,000 unit SC TTS [facility] Last Admin: 08/12/17 12:23 Dose: 10,000 unit Ferrous Sulfate (Feosol) 325 mg PO TID [facility] Last Admin: 08/13/17 09:20 Dose: 325 mg Gabapentin (Neurontin) 300 mg PO HS [facility] Last Admin: 08/12/17 21:29 Dose: 300 mg Glipizide (Glucotrol) 5 mg PO DAILY [facility] Last Admin: 08/13/17 09:22 Dose: 5 mg Glucagon (Glucagen Diagnostic Kit) 1 mg IM STAT PRN PRN Reason: Hypoglycemia Insulin Human Regular (Humulin R) 0 units SC [facility] PRN Reason: Protocol Last Admin: 08/13/17 09:25 Dose: Not Given Lactulose (Enulose) 20 gm PO DAILY PRN PRN Reason: Constipation Losartan Potassium (Cozaar) 25 mg PO DAILY [facility] Last Admin: 08/13/17 09:22 Dose: 25 mg Ondansetron HCl (Zofran Tab) 4 mg PO Q6 [facility] Last Admin: 08/13/17 09:26 Dose: Not Given Oxycodone HCl (Oxycontin Extended Release Tab) 10 mg PO Q12 [facility] Stop: 08/14/17 09:01 Last Admin: 08/13/17 09:19 Dose: 10 mg Pantoprazole Sodium (Protonix Ec Tab) 40 mg PO DAILY [facility] Last Admin: 08/13/17 09:26 Dose: 40 mg - Labs Labs: 08/13/17 06:20 08/13/17 06:20 - Head Exam Head Exam: ATRAUMATIC, NORMAL INSPECTION, NORMOCEPHALIC - Eye Exam Eye Exam: EOMI, Normal appearance Pupil Exam: NORMAL ACCOMODATION, PERRL - ENT Exam ENT Exam: Mucous Membranes Moist, Normal Exam - Neck Exam Neck Exam: Normal Inspection - Respiratory Exam Respiratory Exam: NORMAL BREATHING PATTERN - Cardiovascular Exam Cardiovascular Exam: REGULAR RHYTHM - GI/Abdominal Exam GI & Abdominal Exam: Normal Bowel Sounds - Rectal Exam Rectal Exam: NORMAL INSPECTION - Exam External exam: NORMAL EXTERNAL EXAM - Extremities Exam Extremities Exam: Normal Capillary Refill, Normal Inspection - Back Exam Back Exam: NORMAL INSPECTION - Neurological Exam Neurological Exam: Alert, Awake Neuro motor strength exam: Left Upper Extremity: 4, Right Upper Extremity: 4, Left Lower Extremity: 4, Right Lower Extremity: 3 - Psychiatric Exam Psychiatric exam: Normal Affect, Normal Mood - Skin Skin Exam: Dry, Normal Color Assessment and Plan (1) Acute on chronic renal failure Status: Acute (2) Hypercholesterolemia Status: Acute (3) Status post right hip replacement Assessment & Plan: monitor right hip incision, plan for physical, occupational therapy program Status: Acute (4) Chronic diarrhea Status: Chronic (5) Diabetes mellitus Status: Chronic (6) Hypertension Status: Chronic
[2017-08-14] MEDS: Insulin Regular 100 units/ml SC SCH ×4 (06:41→21:43)
[2017-08-14] MEDS: Enoxaparin 30 mg Syringe SC SCH (08:16)
[2017-08-14] MEDS: Pantoprazole 40 mg EC Tab PO SCH (08:18)
[2017-08-14] MEDS: oxyCODONE 10 mg ER Tab (oxyCONTIN) PO SCH ×2 (08:24→22:00)
--- NOTE | 2017-08-14 11:02 | CP.PCM.PN ---
Subjective - Date & Time of Evaluation Date of Evaluation: 08/14/17 Time of Evaluation: 09:00 - Subjective Subjective: Patient seen and examined at bedside comfortable. Pain is well controlled. Zuniga still in place. No new complaints. Objective - Vital Signs/Intake and Output Vital Signs (last 24 hours): Temp Pulse Resp BP Pulse Ox 98.4 F 61 20 121/69 100 08/14/17 07:57 08/14/17 08:17 08/14/17 07:57 08/14/17 08:17 08/14/17 07:57 - Medications Medications: Current Medications Acetaminophen (Tylenol 325mg Tab) 325 mg PO Q4 PRN PRN Reason: pain1-3 Last Admin: 08/12/17 17:36 Dose: 325 mg Amlodipine Besylate (Norvasc) 5 mg PO DAILY [facility] Last Admin: 08/14/17 08:17 Dose: 5 mg Carvedilol (Coreg) 6.25 mg PO BID [facility] Last Admin: 08/14/17 08:13 Dose: 6.25 mg Dextrose (Dextrose 50% Inj) 50 ml IVP ONCE PRN; Protocol PRN Reason: Hypoglycemia Dextrose (Glutose 15) 15 gm PO ONCE PRN PRN Reason: Hypoglycemia Docusate Sodium (Colace) 100 mg PO TID [facility] Last Admin: 08/14/17 08:12 Dose: 100 mg Enoxaparin Sodium (Lovenox) 30 mg SC DAILY [facility] PRN Reason: Protocol Last Admin: 08/14/17 08:16 Dose: 30 mg Epoetin Nish (Procrit) 10,000 unit SC TTS [facility] Last Admin: 08/12/17 12:23 Dose: 10,000 unit Ferrous Sulfate (Feosol) 325 mg PO TID [facility] Last Admin: 08/14/17 08:16 Dose: 325 mg Gabapentin (Neurontin) 300 mg PO HS [facility] Last Admin: 08/13/17 21:33 Dose: 300 mg Glipizide (Glucotrol) 5 mg PO DAILY [facility] Last Admin: 08/14/17 08:16 Dose: 5 mg Glucagon (Glucagen Diagnostic Kit) 1 mg IM STAT PRN PRN Reason: Hypoglycemia Insulin Human Regular (Humulin R) 0 units SC [facility] PRN Reason: Protocol Last Admin: 08/14/17 06:41 Dose: Not Given Lactulose (Enulose) 20 gm PO DAILY PRN PRN Reason: Constipation Losartan Potassium (Cozaar) 25 mg PO DAILY [facility] Last Admin: 08/14/17 08:14 Dose: 25 mg Ondansetron HCl (Zofran Tab) 4 mg PO Q6 [facility] Last Admin: 08/14/17 04:00 Dose: Not Given Pantoprazole Sodium (Protonix Ec Tab) 40 mg PO DAILY [facility] Last Admin: 08/14/17 08:18 Dose: 40 mg Tolterodine Tartrate (Detrol) 2 mg PO BID [facility] Last Admin: 08/14/17 08:15 Dose: 2 mg - Labs Labs: 08/13/17 06:20 08/13/17 06:20 - Extremities Exam Additional comments: R hip: Mild swelling and tenderness Prevena dressing in place and intact to KCI device gross NVI distally motor intact EHL/FHL/TA/G compartments soft/NT b/l Assessment and Plan (1) Status post right hip replacement Assessment & Plan: POD#6 s/p R KERRI doing well -cont prevena to KCI suction, transition to portable suction when discharged. Will remove prevena at outpt f/u visit -DVT ppx -recommend remove zuniga, encourage OOB -PT/OT WBAT with assistive device -Above d/w Dr. Ogden in agreement Status: Acute
[2017-08-15] MEDS: Enoxaparin 30 mg Syringe SC SCH (08:11)
[2017-08-15] MEDS: EPOETIN ALFA 10,000 UNIT/ML ML SC SCH (08:14)
[2017-08-15] MEDS: Insulin Regular 100 units/ml SC SCH ×4 (08:15→23:29)
[2017-08-15] MEDS: oxyCODONE 10 mg ER Tab (oxyCONTIN) PO SCH ×2 (08:17→21:11)
[2017-08-15] MEDS: Pantoprazole 40 mg EC Tab PO SCH (08:18)
--- NOTE | 2017-08-15 13:38 | CP.PCM.PN ---
Subjective - Date & Time of Evaluation Date of Evaluation: 08/15/17 Time of Evaluation: 11:00 - Subjective Subjective: no acute complaints of right hip pain Objective - Vital Signs/Intake and Output Vital Signs (last 24 hours): Temp Pulse Resp BP Pulse Ox 97.5 F L 66 20 151/72 H 98 08/15/17 08:03 08/15/17 08:16 08/15/17 08:03 08/15/17 08:16 08/15/17 08:03 - Medications Medications: Current Medications Acetaminophen (Tylenol 325mg Tab) 325 mg PO Q4 PRN PRN Reason: pain1-3 Last Admin: 08/15/17 01:29 Dose: 325 mg Amlodipine Besylate (Norvasc) 5 mg PO DAILY [facility] Last Admin: 08/15/17 08:15 Dose: 5 mg Carvedilol (Coreg) 6.25 mg PO BID [facility] Last Admin: 08/15/17 08:12 Dose: 6.25 mg Dextrose (Dextrose 50% Inj) 50 ml IVP ONCE PRN; Protocol PRN Reason: Hypoglycemia Dextrose (Glutose 15) 15 gm PO ONCE PRN PRN Reason: Hypoglycemia Docusate Sodium (Colace) 100 mg PO TID [facility] Last Admin: 08/15/17 12:58 Dose: 100 mg Enoxaparin Sodium (Lovenox) 30 mg SC DAILY [facility] PRN Reason: Protocol Last Admin: 08/15/17 08:11 Dose: 30 mg Epoetin Nish (Procrit) 10,000 unit SC TTS [facility] Last Admin: 08/15/17 08:14 Dose: 10,000 unit Ferrous Sulfate (Feosol) 325 mg PO TID [facility] Last Admin: 08/15/17 12:58 Dose: 325 mg Gabapentin (Neurontin) 300 mg PO HS [facility] Last Admin: 08/14/17 21:45 Dose: 300 mg Glipizide (Glucotrol) 5 mg PO DAILY [facility] Last Admin: 08/15/17 08:13 Dose: 5 mg Glucagon (Glucagen Diagnostic Kit) 1 mg IM STAT PRN PRN Reason: Hypoglycemia Insulin Human Regular (Humulin R) 0 units SC [facility] PRN Reason: Protocol Last Admin: 08/15/17 11:39 Dose: 1 u Lactulose (Enulose) 20 gm PO DAILY PRN PRN Reason: Constipation Last Admin: 08/14/17 12:06 Dose: 20 gm Losartan Potassium (Cozaar) 25 mg PO DAILY [facility] Last Admin: 08/15/17 08:16 Dose: 25 mg Ondansetron HCl (Zofran Tab) 4 mg PO Q6 [facility] Last Admin: 08/15/17 10:00 Dose: 4 mg Oxycodone HCl (Oxycontin Extended Release Tab) 10 mg PO Q12 [facility] Stop: 08/17/17 21:46 Last Admin: 08/15/17 08:17 Dose: 10 mg Pantoprazole Sodium (Protonix Ec Tab) 40 mg PO DAILY [facility] Last Admin: 08/15/17 08:18 Dose: 40 mg Tolterodine Tartrate (Detrol) 2 mg PO BID [facility] Last Admin: 08/15/17 08:11 Dose: 2 mg - Labs Labs: 08/13/17 06:20 08/13/17 06:20 - Head Exam Head Exam: ATRAUMATIC, NORMAL INSPECTION, NORMOCEPHALIC - Eye Exam Eye Exam: EOMI, Normal appearance, PERRL Pupil Exam: NORMAL ACCOMODATION - ENT Exam ENT Exam: Mucous Membranes Moist, Normal Exam - Neck Exam Neck Exam: Normal Inspection - Respiratory Exam Respiratory Exam: NORMAL BREATHING PATTERN - Cardiovascular Exam Cardiovascular Exam: REGULAR RHYTHM - GI/Abdominal Exam GI & Abdominal Exam: Soft, Normal Bowel Sounds - Rectal Exam Rectal Exam: NORMAL INSPECTION - Exam External exam: NORMAL EXTERNAL EXAM - Extremities Exam Extremities Exam: Full ROM, Normal Capillary Refill, Normal Inspection - Back Exam Back Exam: NORMAL INSPECTION - Neurological Exam Neurological Exam: Alert, Awake Neuro motor strength exam: Left Upper Extremity: 4, Right Upper Extremity: 4, Left Lower Extremity: 4, Right Lower Extremity: 3 - Psychiatric Exam Psychiatric exam: Normal Affect, Normal Mood - Skin Skin Exam: Dry, Intact Assessment and Plan (1) Acute on chronic renal failure Status: Acute (2) Hypercholesterolemia Status: Acute (3) Status post right hip replacement Assessment & Plan: plan to continue with physical, occupational therapy Status: Acute (4) Chronic diarrhea Status: Chronic (5) Diabetes mellitus Status: Chronic (6) Hypertension Status: Chronic
[2017-08-16] MEDS: Insulin Regular 100 units/ml SC SCH ×4 (08:32→23:00)
[2017-08-16] MEDS: Pantoprazole 40 mg EC Tab PO SCH (08:32)
[2017-08-16] MEDS: Enoxaparin 30 mg Syringe SC SCH (08:32)
[2017-08-16] MEDS: oxyCODONE 10 mg ER Tab (oxyCONTIN) PO SCH ×2 (08:35→20:49)
--- NOTE | 2017-08-16 13:51 | CP.PCM.PN ---
Subjective - Date & Time of Evaluation Date of Evaluation: 08/16/17 Time of Evaluation: 12:00 - Subjective Subjective: no acute complaints at present Objective - Vital Signs/Intake and Output Vital Signs (last 24 hours): Temp Pulse Resp BP Pulse Ox 97.5 F L 56 L 20 142/57 L 100 08/16/17 07:52 08/16/17 08:31 08/16/17 07:52 08/16/17 08:31 08/16/17 07:52 - Medications Medications: Current Medications Acetaminophen (Tylenol 325mg Tab) 325 mg PO Q4 PRN PRN Reason: pain1-3 Last Admin: 08/15/17 01:29 Dose: 325 mg Amlodipine Besylate (Norvasc) 5 mg PO DAILY [facility] Last Admin: 08/16/17 08:31 Dose: 5 mg Carvedilol (Coreg) 6.25 mg PO BID [facility] Last Admin: 08/16/17 08:31 Dose: 6.25 mg Dextrose (Dextrose 50% Inj) 50 ml IVP ONCE PRN; Protocol PRN Reason: Hypoglycemia Dextrose (Glutose 15) 15 gm PO ONCE PRN PRN Reason: Hypoglycemia Docusate Sodium (Colace) 100 mg PO TID [facility] Last Admin: 08/16/17 13:22 Dose: 100 mg Epoetin Nish (Procrit) 10,000 unit SC TTS [facility] Last Admin: 08/15/17 08:14 Dose: 10,000 unit Ferrous Sulfate (Feosol) 325 mg PO TID [facility] Last Admin: 08/16/17 13:22 Dose: 325 mg Gabapentin (Neurontin) 300 mg PO HS [facility] Last Admin: 08/15/17 21:12 Dose: 300 mg Glipizide (Glucotrol) 5 mg PO DAILY [facility] Last Admin: 08/16/17 08:31 Dose: 5 mg Glucagon (Glucagen Diagnostic Kit) 1 mg IM STAT PRN PRN Reason: Hypoglycemia Insulin Human Regular (Humulin R) 0 units SC [facility] PRN Reason: Protocol Last Admin: 08/16/17 08:32 Dose: Not Given Lactulose (Enulose) 20 gm PO DAILY PRN PRN Reason: Constipation Last Admin: 08/14/17 12:06 Dose: 20 gm Losartan Potassium (Cozaar) 25 mg PO DAILY [facility] Last Admin: 08/16/17 08:30 Dose: 25 mg Ondansetron HCl (Zofran Tab) 4 mg PO Q6 [facility] Last Admin: 08/16/17 13:21 Dose: Not Given Oxycodone HCl (Oxycontin Extended Release Tab) 10 mg PO Q12 [facility] Stop: 08/17/17 21:46 Last Admin: 08/16/17 08:35 Dose: 10 mg Pantoprazole Sodium (Protonix Ec Tab) 40 mg PO DAILY [facility] Last Admin: 08/16/17 08:32 Dose: 40 mg Tolterodine Tartrate (Detrol) 2 mg PO BID [facility] Last Admin: 08/16/17 08:31 Dose: 2 mg - Labs Labs: 08/13/17 06:20 08/13/17 06:20 - Head Exam Head Exam: ATRAUMATIC, NORMAL INSPECTION, NORMOCEPHALIC - Eye Exam Eye Exam: EOMI, Normal appearance, PERRL Pupil Exam: NORMAL ACCOMODATION - ENT Exam ENT Exam: Mucous Membranes Moist, Normal Exam - Neck Exam Neck Exam: Normal Inspection - Respiratory Exam Respiratory Exam: NORMAL BREATHING PATTERN - Cardiovascular Exam Cardiovascular Exam: REGULAR RHYTHM - GI/Abdominal Exam GI & Abdominal Exam: Soft, Normal Bowel Sounds - Rectal Exam Rectal Exam: NORMAL INSPECTION - Exam External exam: NORMAL EXTERNAL EXAM - Extremities Exam Extremities Exam: Full ROM, Normal Capillary Refill, Normal Inspection - Back Exam Back Exam: NORMAL INSPECTION - Neurological Exam Neurological Exam: Alert, Awake Neuro motor strength exam: Left Upper Extremity: 3, Right Upper Extremity: 3, Left Lower Extremity: 3, Right Lower Extremity: 3 - Psychiatric Exam Psychiatric exam: Normal Affect, Normal Mood - Skin Skin Exam: Dry, Intact, Normal Color Assessment and Plan (1) Acute on chronic renal failure Status: Acute (2) Hypercholesterolemia Status: Acute (3) Status post right hip replacement Assessment & Plan: plan for physical, occupational therapy program Status: Acute (4) Chronic diarrhea Status: Chronic (5) Diabetes mellitus Status: Chronic (6) Hypertension Status: Chronic
--- NOTE | 2017-08-17 04:10 | CON ---
COMPREHENSIVE UROLOGIC CONSULTATION DATE: 08/16/2017 TIME OF CONSULTATION: Roughly 7:00 p.m. REASON FOR CONSULTATION: Acute urinary retention postop, status post right total hip replacement. BRIEF HISTORY: The patient is a 67-year-old white female status post right total hip replacement on 08/08/2017 who postop went in to acute urinary retention. This is the patient's first episode of urinary retention. She previously was voiding with her usual normal urinary stream without any complaints. She does however have history of some chronic kidney disease in the past. No history of any kidney stones. GYNECOLOGIC HISTORY: She is 5, para 5 with all normal vaginal deliveries. PAST MEDICAL HISTORY: Includes hypertension, diabetes mellitus, lumbar fusion for back pain in 2015, cervical spine fusion in 2012, gastritis, and colitis. PAST SURGICAL HISTORY: In addition to the right total hip replacement, she is status post hysterectomy. SOCIAL HISTORY: She has no history of any tobacco use and is a very rare social drinker. ALLERGIES: NO KNOWN ALLERGIES TO ANY MEDICATIONS. MEDICATIONS: The patient was also on Detrol. She is also on oxycodone pain medication, but currently does not complain of any constipation at this time. She has no history of any seasonal allergies and does not require any type of allergy medications. PHYSICAL EXAMINATION: GENERAL: Today, the patient is a well-developed, well-nourished, and slightly obese white female. She is alert. She is oriented. HEENT: Grossly within normal limits. NECK: Supple. Thyroid nonpalpable. ABDOMEN: Currently soft, not distended or tender. No CVA tenderness. No suprapubic tenderness and she has a Ramsey catheter draining reyna urine well. LABORATORY DATA: Laboratory evaluation on 08/13/2017 shows a sodium of 138, potassium 4.0, chloride 102, CO2 of 27, BUN and creatinine of 20 and 1.3 respectively with a GFR of 41 indicating chronic kidney disease stage 3. Glucose is 99. Hemoglobin A1c 6.9. Uric acid 10.7. Phosphorus 3.2, magnesium 1.2, and calcium 9.0. Total bili was 0.9, AST was 19, ALT 22, and alkaline phosphatase 71. Total cholesterol was 92, LDL was less than 30, HDL was 41, lipase 351, TSH 1.47, and PTH was 133.7. Urinalysis showed color was yellow, appearance was cloudy, pH of 5.0, and specific gravity 1.020. Glucose and ketones were both negative. Blood was small. Nitrite was negative. Bilirubin was negative. Urobilinogen 0.2. Leukocyte esterase was negative, 2 to 5 RBCs, and 15 to 20 WBCs with no bacteria per high-power field. CBC on 08/13/2017 showed a WBC count of 6.6, hemoglobin of 8.5, and hematocrit of 25.0 with a platelet count of 150,000. DIAGNOSTIC IMPRESSION: Acute urinary retention postoperatively with over 1000 mL of a postvoid residual. PLAN: 1. Stop Detrol.. 2. Start the patient on Flomax 0.4 mg daily. Discontinue the Ramsey catheter in a.m. and start the patient on intermittent catheterization every 8 hours. Chart all postvoid residuals and voided amounts. If the patient starts to void and her postvoid residuals drop below 250 mL, the intermittent catheterizations can stop. Also send urine for culture and sensitivity. Gagandeep Frank MD MTDTrina
[2017-08-17] MEDS: Insulin Regular 100 units/ml SC SCH ×4 (07:49→21:34)
[2017-08-17] MEDS: oxyCODONE 10 mg ER Tab (oxyCONTIN) PO SCH ×2 (08:03→21:25)
[2017-08-17] MEDS: EPOETIN ALFA 10,000 UNIT/ML ML SC SCH (08:03)
[2017-08-17] MEDS: Enoxaparin 40 mg Syringe SC SCH (08:04)
[2017-08-17] MEDS: Pantoprazole 40 mg EC Tab PO SCH (08:14)
[2017-08-17 09:27] LABS: SQUAMOUS EPITHIAL < 1 /hpf (0-5); URINE BILIRUBIN NEGATIVE (NEGATIVE); URINE BLOOD SMALL (NEGATIVE); URINE CLARITY SLIGHTY-CLOUDY (Clear); URINE COLOR STRAW (YELLOW); URINE GLUCOSE (UA) NEG (Normal); URINE LEUKOCYTE ESTERASE NEG Leu/uL (Negative); URINE PROTEIN NEGATIVE (NEGATIVE); URINE UROBILINOGEN 0.2-1.0 mg/dL (0.2-1.0)
[2017-08-18] MEDS: Insulin Regular 100 units/ml SC SCH ×4 (06:32→22:10)
[2017-08-18] MEDS: Enoxaparin 40 mg Syringe SC SCH (08:15)
[2017-08-18] MEDS: Pantoprazole 40 mg EC Tab PO SCH (08:17)
--- NOTE | 2017-08-18 12:06 | CP.PCM.PN ---
Subjective - Date & Time of Evaluation Date of Evaluation: 08/18/17 Time of Evaluation: 09:00 - Subjective Subjective: patinet with right leg weakness Objective - Vital Signs/Intake and Output Vital Signs (last 24 hours): Temp Pulse Resp BP Pulse Ox 97.5 F L 60 20 130/55 L 98 08/18/17 08:52 08/18/17 08:52 08/18/17 08:52 08/18/17 08:52 08/18/17 08:52 - Medications Medications: Current Medications Acetaminophen (Tylenol 325mg Tab) 325 mg PO Q4 PRN PRN Reason: pain1-3 Last Admin: 08/16/17 14:53 Dose: 325 mg Amlodipine Besylate (Norvasc) 5 mg PO DAILY [facility] Last Admin: 08/18/17 08:16 Dose: 5 mg Carvedilol (Coreg) 6.25 mg PO BID [facility] Last Admin: 08/18/17 08:16 Dose: 6.25 mg Dextrose (Dextrose 50% Inj) 50 ml IVP ONCE PRN; Protocol PRN Reason: Hypoglycemia Dextrose (Glutose 15) 15 gm PO ONCE PRN PRN Reason: Hypoglycemia Docusate Sodium (Colace) 100 mg PO TID [facility] Last Admin: 08/18/17 08:15 Dose: 100 mg Enoxaparin Sodium (Lovenox) 40 mg SC DAILY [facility] PRN Reason: Protocol Last Admin: 08/18/17 08:15 Dose: 40 mg Epoetin Nish (Procrit) 10,000 unit SC TTS [facility] Last Admin: 08/17/17 08:03 Dose: 10,000 unit Ferrous Sulfate (Feosol) 325 mg PO TID [facility] Last Admin: 08/18/17 08:15 Dose: 325 mg Gabapentin (Neurontin) 300 mg PO HS [facility] Last Admin: 08/17/17 21:26 Dose: 300 mg Glipizide (Glucotrol) 5 mg PO DAILY [facility] Last Admin: 08/18/17 08:15 Dose: 5 mg Glucagon (Glucagen Diagnostic Kit) 1 mg IM STAT PRN PRN Reason: Hypoglycemia Insulin Human Regular (Humulin R) 0 units SC [facility] PRN Reason: Protocol Last Admin: 08/18/17 06:32 Dose: Not Given Lactulose (Enulose) 20 gm PO DAILY PRN PRN Reason: Constipation Last Admin: 08/14/17 12:06 Dose: 20 gm Losartan Potassium (Cozaar) 25 mg PO DAILY [facility] Last Admin: 08/18/17 08:17 Dose: 25 mg Ondansetron HCl (Zofran Tab) 4 mg PO Q6 PRN PRN Reason: Nausea/Vomiting Pantoprazole Sodium (Protonix Ec Tab) 40 mg PO DAILY [facility] Last Admin: 08/18/17 08:17 Dose: 40 mg Tamsulosin HCl (Flomax) 0.4 mg PO DAILY [facility] Last Admin: 08/18/17 08:16 Dose: 0.4 mg - Labs Labs: 08/13/17 06:20 08/13/17 06:20 - Head Exam Head Exam: ATRAUMATIC, NORMAL INSPECTION, NORMOCEPHALIC - Eye Exam Eye Exam: EOMI, Normal appearance, PERRL Pupil Exam: NORMAL ACCOMODATION - ENT Exam ENT Exam: Mucous Membranes Moist, Normal Exam - Neck Exam Neck Exam: Normal Inspection - Respiratory Exam Respiratory Exam: NORMAL BREATHING PATTERN - Cardiovascular Exam Cardiovascular Exam: REGULAR RHYTHM - GI/Abdominal Exam GI & Abdominal Exam: Soft, Normal Bowel Sounds - Rectal Exam Rectal Exam: NORMAL INSPECTION - Exam External exam: NORMAL EXTERNAL EXAM - Extremities Exam Extremities Exam: Full ROM, Normal Capillary Refill - Back Exam Back Exam: NORMAL INSPECTION - Neurological Exam Neurological Exam: Alert, Awake, CN II-XII Intact Neuro motor strength exam: Left Upper Extremity: 4, Right Upper Extremity: 4, Left Lower Extremity: 4, Right Lower Extremity: 3 - Psychiatric Exam Psychiatric exam: Normal Affect, Normal Mood - Skin Skin Exam: Dry, Intact Assessment and Plan (1) Acute on chronic renal failure Status: Acute (2) Hypercholesterolemia Status: Acute (3) Status post right hip replacement Assessment & Plan: to continue with physical, occupational therapy at present, Status: Acute (4) Chronic diarrhea Status: Chronic (5) Diabetes mellitus Status: Chronic (6) Hypertension Status: Chronic
--- NOTE | 2017-08-18 14:28 | PN ---
DATE: FOLLOWUP NOTE SUBJECTIVE: The patient is currently resting comfortably and doing very well in Rehab, status post right total hip replacement. Her voiding pattern seems to be slowly improving from voiding 150 mL of urine with a residual of 600, now increased up to 300 mL with a residual of 400 mL. DIAGNOSTIC IMPRESSION: For this patient is acute urinary retention postoperative. PLAN: The plan is just to continue intermittent catheterizations on this patient every 8 hours and check residual urine and voided amounts and continue the patient on Flomax 0.4 mg daily at this time. Gagandeep Frank MD MTDD
[2017-08-18] MEDS: oxyCODONE 10 mg ER Tab (oxyCONTIN) PO SCH (22:11)
--- NOTE | 2017-08-18 23:13 | CP.PCM.PN ---
Subjective - Date & Time of Evaluation Date of Evaluation: 08/18/17 Time of Evaluation: 11:30 - Subjective Subjective: Pt on the phone conversing with other, feels really well today, no complaint of pain/fever/chills/dysuria, seems well Objective - Vital Signs/Intake and Output Vital Signs (last 24 hours): Temp Pulse Resp BP Pulse Ox 98.4 F 61 20 130/50 L 96 08/18/17 16:25 08/18/17 17:15 08/18/17 16:25 08/18/17 17:15 08/18/17 16:25 - Medications Medications: Current Medications Acetaminophen (Tylenol 325mg Tab) 325 mg PO Q4 PRN PRN Reason: pain1-3 Last Admin: 08/18/17 14:43 Dose: 325 mg Amlodipine Besylate (Norvasc) 5 mg PO DAILY [facility] Last Admin: 08/18/17 08:16 Dose: 5 mg Carvedilol (Coreg) 6.25 mg PO BID [facility] Last Admin: 08/18/17 17:15 Dose: 6.25 mg Dextrose (Dextrose 50% Inj) 50 ml IVP ONCE PRN; Protocol PRN Reason: Hypoglycemia Dextrose (Glutose 15) 15 gm PO ONCE PRN PRN Reason: Hypoglycemia Docusate Sodium (Colace) 100 mg PO TID [facility] Last Admin: 08/18/17 17:16 Dose: 100 mg Enoxaparin Sodium (Lovenox) 40 mg SC DAILY [facility] PRN Reason: Protocol Last Admin: 08/18/17 08:15 Dose: 40 mg Epoetin Nish (Procrit) 10,000 unit SC TTS [facility] Last Admin: 08/17/17 08:03 Dose: 10,000 unit Ferrous Sulfate (Feosol) 325 mg PO TID [facility] Last Admin: 08/18/17 17:15 Dose: 325 mg Gabapentin (Neurontin) 300 mg PO HS [facility] Last Admin: 08/18/17 22:11 Dose: 300 mg Glipizide (Glucotrol) 5 mg PO DAILY [facility] Last Admin: 08/18/17 08:15 Dose: 5 mg Glucagon (Glucagen Diagnostic Kit) 1 mg IM STAT PRN PRN Reason: Hypoglycemia Insulin Human Regular (Humulin R) 0 units SC ACHS [facility] PRN Reason: Protocol Last Admin: 08/18/17 22:10 Dose: Not Given Lactulose (Enulose) 20 gm PO DAILY PRN PRN Reason: Constipation Last Admin: 08/14/17 12:06 Dose: 20 gm Losartan Potassium (Cozaar) 25 mg PO DAILY [facility] Last Admin: 08/18/17 08:17 Dose: 25 mg Ondansetron HCl (Zofran Tab) 4 mg PO Q6 PRN PRN Reason: Nausea/Vomiting Oxycodone HCl (Oxycontin Extended Release Tab) 10 mg PO Q12 [facility] Stop: 08/21/17 21:46 Last Admin: 08/18/17 22:11 Dose: 10 mg Pantoprazole Sodium (Protonix Ec Tab) 40 mg PO DAILY [facility] Last Admin: 08/18/17 08:17 Dose: 40 mg Tamsulosin HCl (Flomax) 0.4 mg PO DAILY [facility] Last Admin: 08/18/17 08:16 Dose: 0.4 mg - Labs Labs: 08/13/17 06:20 08/13/17 06:20 - Constitutional Appears: Well, Non-toxic, No Acute Distress - Head Exam Head Exam: ATRAUMATIC, NORMAL INSPECTION - Eye Exam Eye Exam: EOMI, Normal appearance, PERRL Pupil Exam: NORMAL ACCOMODATION - ENT Exam ENT Exam: Mucous Membranes Moist, Normal Exam - Neck Exam Neck Exam: Full ROM, Normal Inspection - Respiratory Exam Respiratory Exam: Clear to Ausculation Bilateral, NORMAL BREATHING PATTERN - Cardiovascular Exam Cardiovascular Exam: REGULAR RHYTHM - GI/Abdominal Exam GI & Abdominal Exam: Soft, Normal Bowel Sounds - Extremities Exam Extremities Exam: Full ROM, Normal Capillary Refill, Normal Inspection. absent : Calf Tenderness, Joint Swelling, Pedal Edema - Back Exam Back Exam: NORMAL INSPECTION - Neurological Exam Neurological Exam: Alert, Awake, Normal Gait, Oriented x3 - Psychiatric Exam Psychiatric exam: Normal Affect, Normal Mood - Skin Skin Exam: Dry, Normal Color, Warm Assessment and Plan - Assessment and Plan (Free Text) Assessment: (1) Acute on chronic renal failure -stable, follow up renal function (2) Hypercholesterolemia -Chronic and stable (3) Status post right hip replacement -continue with physical, occupational therapy (4) Chronic diarrhea -no diarrhea currently (5) Diabetes mellitus -insulin SS and oral meds (6) Hypertension -continue current meds -DVT ppx with lovenox
[2017-08-19] MEDS: Insulin Regular 100 units/ml SC SCH ×4 (06:54→21:29)
[2017-08-19 08:06] LABS: HEMOGLOBIN 9.1 g/dL (12.0-16.0); MEAN CELL VOLUME 90.1 fl (81.0-99.0); MEAN CORPUSCULAR HEMOGLOBIN 29.6 pg (27.0-31.0); MEAN CORPUSCULAR HGB CONC 32.8 g/dL (33.0-37.0); RBC 3.06 Mil/uL (3.80-5.20); RED CELL DISTRIBUTION WIDTH 14.1 % (11.5-14.5); WHITE BLOOD COUNT 8.5 K/uL (4.8-10.8)
[2017-08-19 08:08] LABS: CALCIUM 9.5 mg/dL (8.4-10.2)
[2017-08-19] MEDS: oxyCODONE 10 mg ER Tab (oxyCONTIN) PO SCH ×2 (08:27→21:17)
[2017-08-19] MEDS: Enoxaparin 40 mg Syringe SC SCH (08:28)
[2017-08-19] MEDS: Pantoprazole 40 mg EC Tab PO SCH (08:31)
[2017-08-19] MEDS: EPOETIN ALFA 10,000 UNIT/ML ML SC SCH (12:32)
--- NOTE | 2017-08-19 22:53 | CP.PCM.PN ---
Subjective - Date & Time of Evaluation Date of Evaluation: 08/19/17 Time of Evaluation: 17:35 - Subjective Subjective: feels well, no CP/SoB/new weakness Objective - Vital Signs/Intake and Output Vital Signs (last 24 hours): Temp Pulse Resp BP Pulse Ox 98.1 F 75 20 138/59 L 99 08/19/17 19:57 08/19/17 19:57 08/19/17 19:57 08/19/17 19:57 08/19/17 19:57 - Medications Medications: Current Medications Acetaminophen (Tylenol 325mg Tab) 325 mg PO Q4 PRN PRN Reason: pain1-3 Last Admin: 08/18/17 14:43 Dose: 325 mg Amlodipine Besylate (Norvasc) 5 mg PO DAILY [facility] Last Admin: 08/19/17 08:32 Dose: 5 mg Carvedilol (Coreg) 6.25 mg PO BID [facility] Last Admin: 08/19/17 16:42 Dose: 6.25 mg Dextrose (Dextrose 50% Inj) 50 ml IVP ONCE PRN; Protocol PRN Reason: Hypoglycemia Dextrose (Glutose 15) 15 gm PO ONCE PRN PRN Reason: Hypoglycemia Docusate Sodium (Colace) 100 mg PO TID [facility] Last Admin: 08/19/17 16:42 Dose: 100 mg Enoxaparin Sodium (Lovenox) 40 mg SC DAILY [facility] PRN Reason: Protocol Last Admin: 08/19/17 08:28 Dose: 40 mg Epoetin Nish (Procrit) 10,000 unit SC TTS [facility] Last Admin: 08/19/17 12:32 Dose: 10,000 unit Ferrous Sulfate (Feosol) 325 mg PO TID [facility] Last Admin: 08/19/17 16:42 Dose: 325 mg Gabapentin (Neurontin) 300 mg PO HS [facility] Last Admin: 08/19/17 21:17 Dose: 300 mg Glipizide (Glucotrol) 5 mg PO DAILY@0730 [facility] Last Admin: 08/19/17 08:00 Dose: 5 mg Glucagon (Glucagen Diagnostic Kit) 1 mg IM STAT PRN PRN Reason: Hypoglycemia Insulin Human Regular (Humulin R) 0 units SC [facility] PRN Reason: Protocol Last Admin: 08/19/17 21:29 Dose: Not Given Lactulose (Enulose) 20 gm PO DAILY PRN PRN Reason: Constipation Last Admin: 08/14/17 12:06 Dose: 20 gm Losartan Potassium (Cozaar) 25 mg PO DAILY [facility] Last Admin: 08/19/17 08:42 Dose: 25 mg Ondansetron HCl (Zofran Tab) 4 mg PO Q6 PRN PRN Reason: Nausea/Vomiting Oxycodone HCl (Oxycontin Extended Release Tab) 10 mg PO Q12 [facility] Stop: 08/21/17 21:46 Last Admin: 08/19/17 21:17 Dose: 10 mg Pantoprazole Sodium (Protonix Ec Tab) 40 mg PO DAILY [facility] Last Admin: 08/19/17 08:31 Dose: 40 mg Tamsulosin HCl (Flomax) 0.4 mg PO DAILY [facility] Last Admin: 08/19/17 08:32 Dose: 0.4 mg - Labs Labs: 08/19/17 06:00 08/19/17 06:00 - Constitutional Appears: Well, No Acute Distress - Head Exam Head Exam: ATRAUMATIC - Eye Exam Eye Exam: EOMI, Normal appearance Pupil Exam: NORMAL ACCOMODATION, PERRL - ENT Exam ENT Exam: Mucous Membranes Moist - Neck Exam Neck Exam: Full ROM, Normal Inspection - Respiratory Exam Respiratory Exam: Clear to Ausculation Bilateral - Cardiovascular Exam Cardiovascular Exam: REGULAR RHYTHM - GI/Abdominal Exam GI & Abdominal Exam: Soft, Normal Bowel Sounds - Extremities Exam Extremities Exam: Full ROM, Normal Capillary Refill - Neurological Exam Neurological Exam: Alert, Awake, Oriented x3 Neuro motor strength exam: Left Upper Extremity: 5, Right Upper Extremity: 5, Left Lower Extremity: 5, Right Lower Extremity: 4 - Psychiatric Exam Psychiatric exam: Normal Affect, Normal Mood - Skin Skin Exam: Dry, Normal Color, Warm Assessment and Plan - Assessment and Plan (Free Text) Assessment: (1) Acute on chronic renal failure -stable, follow up renal function (2) Hypercholesterolemia -Chronic and stable (3) Status post right hip replacement -continue with physical, occupational therapy (4) Chronic diarrhea -no diarrhea currently (5) Diabetes mellitus -insulin SS and oral meds (6) Hypertension -continue current meds -DVT ppx with lovenox
[2017-08-20] MEDS: Insulin Regular 100 units/ml SC SCH ×4 (06:38→21:14)
[2017-08-20] MEDS: Pantoprazole 40 mg EC Tab PO SCH (09:41)
[2017-08-20] MEDS: Enoxaparin 40 mg Syringe SC SCH (09:41)
[2017-08-20] MEDS: oxyCODONE 10 mg ER Tab (oxyCONTIN) PO SCH ×2 (09:46→21:18)
--- NOTE | 2017-08-20 13:29 | PN ---
DATE: 08/20/2017 FOLLOWUP NOTE TIME OF FOLLOWUP: Roughly 12:30 p.m. SUBJECTIVE: The patient is currently sitting in a chair comfortably. She says she is voiding urine. She voided 150 and 250 mL today and her residuals will be checked soon. She also is having daily bowel movements. Her glucose today was 150. PHYSICAL EXAMINATION: ABDOMEN: Soft, not distended or tender. No CVA tenderness. No suprapubic tenderness. PLAN: To this patient is to continue intermittent catheterization, which can be stopped if her residuals drop below 250. This residual may be able to be increased to 300 if her BUN and creatinine remained stable or even more if the patient remains comfortable. Gagandeep Frank MD
--- NOTE | 2017-08-20 21:34 | CP.PCM.PN ---
Subjective - Date & Time of Evaluation Date of Evaluation: 08/20/17 Time of Evaluation: 16:50 - Subjective Subjective: Sitting in chair, reading and feels well Objective - Vital Signs/Intake and Output Vital Signs (last 24 hours): Temp Pulse Resp BP Pulse Ox 97.9 F 72 20 116/68 97 08/20/17 20:05 08/20/17 20:05 08/20/17 20:05 08/20/17 20:05 08/20/17 20:05 - Medications Medications: Current Medications Acetaminophen (Tylenol 325mg Tab) 325 mg PO Q4 PRN PRN Reason: pain1-3 Last Admin: 08/20/17 15:10 Dose: 325 mg Amlodipine Besylate (Norvasc) 5 mg PO DAILY [facility] Last Admin: 08/20/17 09:40 Dose: 5 mg Carvedilol (Coreg) 6.25 mg PO BID [facility] Last Admin: 08/20/17 17:05 Dose: Not Given Dextrose (Dextrose 50% Inj) 50 ml IVP ONCE PRN; Protocol PRN Reason: Hypoglycemia Dextrose (Glutose 15) 15 gm PO ONCE PRN PRN Reason: Hypoglycemia Docusate Sodium (Colace) 100 mg PO TID [facility] Last Admin: 08/20/17 17:03 Dose: 100 mg Enoxaparin Sodium (Lovenox) 40 mg SC DAILY [facility] PRN Reason: Protocol Last Admin: 08/20/17 09:41 Dose: 40 mg Epoetin Nish (Procrit) 10,000 unit SC TTS [facility] Last Admin: 08/19/17 12:32 Dose: 10,000 unit Ferrous Sulfate (Feosol) 325 mg PO TID [facility] Last Admin: 08/20/17 16:57 Dose: 325 mg Gabapentin (Neurontin) 300 mg PO HS [facility] Last Admin: 08/20/17 21:19 Dose: 300 mg Glipizide (Glucotrol) 5 mg PO DAILY@0730 [facility] Last Admin: 08/20/17 06:57 Dose: 5 mg Glucagon (Glucagen Diagnostic Kit) 1 mg IM STAT PRN PRN Reason: Hypoglycemia Insulin Human Regular (Humulin R) 0 units SC [facility] PRN Reason: Protocol Last Admin: 08/20/17 21:14 Dose: Not Given Lactulose (Enulose) 20 gm PO DAILY PRN PRN Reason: Constipation Last Admin: 08/14/17 12:06 Dose: 20 gm Losartan Potassium (Cozaar) 25 mg PO DAILY [facility] Last Admin: 08/20/17 09:39 Dose: 25 mg Ondansetron HCl (Zofran Tab) 4 mg PO Q6 PRN PRN Reason: Nausea/Vomiting Oxycodone HCl (Oxycontin Extended Release Tab) 10 mg PO Q12 [facility] Stop: 08/21/17 21:46 Last Admin: 08/20/17 21:18 Dose: 10 mg Pantoprazole Sodium (Protonix Ec Tab) 40 mg PO DAILY [facility] Last Admin: 08/20/17 09:41 Dose: 40 mg Tamsulosin HCl (Flomax) 0.4 mg PO DAILY [facility] Last Admin: 08/20/17 09:40 Dose: 0.4 mg - Labs Labs: 08/19/17 06:00 08/19/17 06:00 - Constitutional Appears: Well, No Acute Distress - Head Exam Head Exam: ATRAUMATIC - Eye Exam Eye Exam: EOMI, Normal appearance Pupil Exam: PERRL - ENT Exam ENT Exam: Mucous Membranes Moist - Neck Exam Neck Exam: Full ROM, Normal Inspection - Respiratory Exam Respiratory Exam: Clear to Ausculation Bilateral, NORMAL BREATHING PATTERN - Cardiovascular Exam Cardiovascular Exam: REGULAR RHYTHM - GI/Abdominal Exam GI & Abdominal Exam: Soft, Normal Bowel Sounds - Extremities Exam Extremities Exam: Full ROM, Normal Capillary Refill, Normal Inspection - Neurological Exam Neurological Exam: Alert, Awake, Normal Gait, Oriented x3 - Psychiatric Exam Psychiatric exam: Normal Affect, Normal Mood - Skin Skin Exam: Dry, Intact, Normal Color, Warm Assessment and Plan - Assessment and Plan (Free Text) Assessment: (1) Acute on chronic renal failure -stable, follow up renal function (2) Hypercholesterolemia -Chronic and stable (3) Status post right hip replacement -continue with physical, occupational therapy (4) Chronic diarrhea -no diarrhea currently (5) Diabetes mellitus -insulin SS and oral meds (6) Hypertension -continue current meds -DVT ppx with lovenox
[2017-08-21] MEDS: Insulin Regular 100 units/ml SC SCH ×4 (07:03→22:00)
[2017-08-21] MEDS: Enoxaparin 40 mg Syringe SC SCH (08:22)
[2017-08-21] MEDS: Pantoprazole 40 mg EC Tab PO SCH (08:24)
[2017-08-21] MEDS: oxyCODONE 10 mg ER Tab (oxyCONTIN) PO SCH ×2 (08:25→21:45)
--- NOTE | 2017-08-21 12:37 | CP.PCM.PN ---
Subjective - Date & Time of Evaluation Date of Evaluation: 08/21/17 Time of Evaluation: 10:00 - Subjective Subjective: Patient seen OOB to chair comfortable. Pain well controlled. No new complaints. Objective - Vital Signs/Intake and Output Vital Signs (last 24 hours): Temp Pulse Resp BP Pulse Ox 97.2 F L 60 20 155/67 H 100 08/21/17 08:03 08/21/17 08:25 08/21/17 08:03 08/21/17 08:25 08/21/17 08:03 - Medications Medications: Current Medications Acetaminophen (Tylenol 325mg Tab) 325 mg PO Q4 PRN PRN Reason: pain1-3 Last Admin: 08/20/17 15:10 Dose: 325 mg Amlodipine Besylate (Norvasc) 5 mg PO DAILY [facility] Last Admin: 08/21/17 08:23 Dose: 5 mg Carvedilol (Coreg) 6.25 mg PO BID [facility] Last Admin: 08/21/17 08:23 Dose: 6.25 mg Dextrose (Dextrose 50% Inj) 50 ml IVP ONCE PRN; Protocol PRN Reason: Hypoglycemia Dextrose (Glutose 15) 15 gm PO ONCE PRN PRN Reason: Hypoglycemia Docusate Sodium (Colace) 100 mg PO TID [facility] Last Admin: 08/21/17 12:27 Dose: 100 mg Enoxaparin Sodium (Lovenox) 40 mg SC DAILY [facility] PRN Reason: Protocol Last Admin: 08/21/17 08:22 Dose: 40 mg Epoetin Nish (Procrit) 10,000 unit SC TTS [facility] Last Admin: 08/19/17 12:32 Dose: 10,000 unit Ferrous Sulfate (Feosol) 325 mg PO TID [facility] Last Admin: 08/21/17 12:27 Dose: 325 mg Gabapentin (Neurontin) 300 mg PO HS [facility] Last Admin: 08/20/17 21:19 Dose: 300 mg Glipizide (Glucotrol) 5 mg PO DAILY@0730 [facility] Last Admin: 08/21/17 06:59 Dose: 5 mg Glucagon (Glucagen Diagnostic Kit) 1 mg IM STAT PRN PRN Reason: Hypoglycemia Insulin Human Regular (Humulin R) 0 units SC ACHS [facility] PRN Reason: Protocol Last Admin: 08/21/17 12:27 Dose: 1 u Lactulose (Enulose) 20 gm PO DAILY PRN PRN Reason: Constipation Last Admin: 08/14/17 12:06 Dose: 20 gm Losartan Potassium (Cozaar) 25 mg PO DAILY [facility] Last Admin: 08/21/17 08:25 Dose: 25 mg Ondansetron HCl (Zofran Tab) 4 mg PO Q6 PRN PRN Reason: Nausea/Vomiting Oxycodone HCl (Oxycontin Extended Release Tab) 10 mg PO Q12 [facility] Stop: 08/21/17 21:46 Last Admin: 08/21/17 08:25 Dose: 10 mg Pantoprazole Sodium (Protonix Ec Tab) 40 mg PO DAILY [facility] Last Admin: 08/21/17 08:24 Dose: 40 mg Tamsulosin HCl (Flomax) 0.4 mg PO DAILY [facility] Last Admin: 08/21/17 08:24 Dose: 0.4 mg - Labs Labs: 08/19/17 06:00 08/19/17 06:00 - Extremities Exam Additional comments: R hip: Mild swelling and tenderness Prevena dressing in place and intact to KCI device, dressing removed revealing wound c/d/i gross NVI distally motor intact EHL/FHL/TA/G compartments soft/NT b/l Assessment and Plan (1) Status post right hip replacement Assessment & Plan: POD #13 s/p R KERRI doing well -Prevena dressings removed to air dry -DVT ppx -PT/OT WBAT -f/u in Dr. Ogden's office in 7-10 days -Above d/w Dr. Ogden in agreement Status: Acute
[2017-08-21 20:03] VITALS: PULSE 60; TEMP 97.9
--- NOTE | 2017-08-21 21:21 | PN ---
DATE: 08/21/2017 TIME OF FOLLOWUP: 06:45 p.m. SUBJECTIVE: The patient is voiding reyna urine well without any complaints at this hour and actually since yesterday at 2:00 p.m. when a postvoid residual was measured at below 200 and the patient was voiding at least 200 mL of reyna urine with each void. She is now almost back to her normal voiding pattern. She is being scheduled for discharge in the a.m. DIAGNOSTIC IMPRESSION: For this patient is resolved postop urinary retention. PLAN: The patient will be discharged home on Flomax 0.4 mg daily and will be seen in the office follow up in about 2 weeks, at which time we may decide to stop the Flomax. Gagandeep Frank MD
[2017-08-22] MEDS: Insulin Regular 100 units/ml SC SCH ×2 (06:58→12:42)
[2017-08-22 07:57] VITALS: BP 137/67; O2SAT 95
[2017-08-22] MEDS: Enoxaparin 40 mg Syringe SC SCH (08:16)
[2017-08-22] MEDS: Pantoprazole 40 mg EC Tab PO SCH (08:17)
--- NOTE | 2017-08-22 08:32 | CP.PCM.PN ---
Subjective - Date & Time of Evaluation Date of Evaluation: 08/21/17 Time of Evaluation: 11:00 - Subjective Subjective: no acute complaints at present Objective - Vital Signs/Intake and Output Vital Signs (last 24 hours): Temp Pulse Resp BP Pulse Ox 97.9 F 60 20 137/67 95 08/22/17 07:56 08/22/17 08:18 08/22/17 07:56 08/22/17 08:18 08/22/17 07:56 - Medications Medications: Current Medications Acetaminophen (Tylenol 325mg Tab) 325 mg PO Q4 PRN PRN Reason: pain1-3 Last Admin: 08/20/17 15:10 Dose: 325 mg Amlodipine Besylate (Norvasc) 5 mg PO DAILY [facility] Last Admin: 08/22/17 08:17 Dose: 5 mg Carvedilol (Coreg) 6.25 mg PO BID [facility] Last Admin: 08/22/17 08:18 Dose: 6.25 mg Dextrose (Dextrose 50% Inj) 50 ml IVP ONCE PRN; Protocol PRN Reason: Hypoglycemia Dextrose (Glutose 15) 15 gm PO ONCE PRN PRN Reason: Hypoglycemia Docusate Sodium (Colace) 100 mg PO TID [facility] Last Admin: 08/22/17 08:17 Dose: 100 mg Enoxaparin Sodium (Lovenox) 40 mg SC DAILY [facility] PRN Reason: Protocol Last Admin: 08/22/17 08:16 Dose: 40 mg Epoetin Nish (Procrit) 10,000 unit SC TTS [facility] Last Admin: 08/19/17 12:32 Dose: 10,000 unit Ferrous Sulfate (Feosol) 325 mg PO TID [facility] Last Admin: 08/22/17 08:16 Dose: 325 mg Gabapentin (Neurontin) 300 mg PO HS [facility] Last Admin: 08/21/17 22:04 Dose: 300 mg Glipizide (Glucotrol) 5 mg PO DAILY@0730 [facility] Last Admin: 08/22/17 07:00 Dose: 5 mg Glucagon (Glucagen Diagnostic Kit) 1 mg IM STAT PRN PRN Reason: Hypoglycemia Insulin Human Regular (Humulin R) 0 units SC [facility] PRN Reason: Protocol Last Admin: 08/22/17 06:58 Dose: Not Given Lactulose (Enulose) 20 gm PO DAILY PRN PRN Reason: Constipation Last Admin: 08/14/17 12:06 Dose: 20 gm Losartan Potassium (Cozaar) 25 mg PO DAILY [facility] Last Admin: 08/22/17 08:16 Dose: 25 mg Ondansetron HCl (Zofran Tab) 4 mg PO Q6 PRN PRN Reason: Nausea/Vomiting Last Admin: 08/21/17 22:05 Dose: 4 mg Oxycodone HCl (Oxycontin Extended Release Tab) 10 mg PO Q12 [facility] Stop: 08/25/17 09:01 Pantoprazole Sodium (Protonix Ec Tab) 40 mg PO DAILY [facility] Last Admin: 08/22/17 08:17 Dose: 40 mg Tamsulosin HCl (Flomax) 0.4 mg PO DAILY [facility] Last Admin: 08/22/17 08:18 Dose: 0.4 mg - Labs Labs: 08/19/17 06:00 08/19/17 06:00 - Head Exam Head Exam: ATRAUMATIC, NORMAL INSPECTION, NORMOCEPHALIC - Eye Exam Eye Exam: EOMI, Normal appearance Pupil Exam: NORMAL ACCOMODATION, PERRL - ENT Exam ENT Exam: Mucous Membranes Moist, Normal Exam - Neck Exam Neck Exam: Normal Inspection - Respiratory Exam Respiratory Exam: Clear to Ausculation Bilateral, NORMAL BREATHING PATTERN - Cardiovascular Exam Cardiovascular Exam: REGULAR RHYTHM - GI/Abdominal Exam GI & Abdominal Exam: Soft, Normal Bowel Sounds - Rectal Exam Rectal Exam: NORMAL INSPECTION - Exam External exam: NORMAL EXTERNAL EXAM - Extremities Exam Extremities Exam: Full ROM, Normal Capillary Refill, Normal Inspection - Back Exam Back Exam: NORMAL INSPECTION - Neurological Exam Neurological Exam: Alert, Awake, CN II-XII Intact Neuro motor strength exam: Left Upper Extremity: 4, Right Upper Extremity: 4, Left Lower Extremity: 3, Right Lower Extremity: 3 - Psychiatric Exam Psychiatric exam: Normal Affect, Normal Mood - Skin Skin Exam: Dry, Normal Color Assessment and Plan (1) Acute on chronic renal failure Status: Acute (2) Hypercholesterolemia Status: Acute (3) Status post right hip replacement Assessment & Plan: continue with physical, occupational therapy equipment written for patient when discharged home. Status: Acute (4) Chronic diarrhea Status: Chronic (5) Diabetes mellitus Status: Chronic (6) Hypertension Status: Chronic
[2017-08-22] MEDS ORDERED: oxyCODONE 10 mg ER Tab (oxyCONTIN) PO SCH (09:00)
[2017-08-22] MEDS: EPOETIN ALFA 10,000 UNIT/ML ML SC SCH (09:46)
--- NOTE | 2017-08-22 14:34 | CP.PCM.DIS ---
Provider - Provider Date of Admission: 08/10/17 21:35 Attending physician: Chevy Jose MD Primary care physician: Chevy Jose MD Time Spent in preparation of Discharge (in minutes): 15 Diagnosis - Discharge Diagnosis (1) Status post right hip replacement Status: Acute (2) Diabetes mellitus Status: Chronic Priority: Low (3) Hypertension Status: Chronic Priority: Low (4) Postoperative urinary retention Status: Acute Hospital Course - Lab Results Lab Results: Micro Results 08/17/17 09:04 Urine,[place] Urine Culture - Final No Growth (<1,000 CFU/ML) 08/12/17 01:00 Urine,Clean Catch Urine Culture - Final No Growth (<1,000 CFU/ML) Most Recent Lab Values WBC 8.5 K/uL (4.8-10.8) 08/19/17 06:00 RBC 3.06 Mil/uL (3.80-5.20) L 08/19/17 06:00 Hgb 9.1 g/dL (12.0-16.0) L 08/19/17 06:00 Hct 27.6 % (34.0-47.0) L 08/19/17 06:00 MCV 90.1 fl (81.0-99.0) 08/19/17 06:00 MCH 29.6 pg (27.0-31.0) 08/19/17 06:00 MCHC 32.8 g/dL (33.0-37.0) L 08/19/17 06:00 RDW 14.1 % (11.5-14.5) 08/19/17 06:00 Plt Count 265 K/uL (130-400) D 08/19/17 06:00 Sodium 142 mmol/l (132-148) 08/19/17 06:00 Potassium 4.7 MMOL/L (3.6-5.0) 08/19/17 06:00 Chloride 103 mmol/L (98-107) 08/19/17 06:00 Carbon Dioxide 27 mmol/L (22-30) 08/19/17 06:00 Anion Gap 17 (10-20) 08/19/17 06:00 BUN 19 mg/dl (7-17) H 08/19/17 06:00 Creatinine 1.2 mg/dl (0.7-1.2) 08/19/17 06:00 Est GFR ( Amer) 54 08/19/17 06:00 Est GFR (Non-Af Amer) 45 08/19/17 06:00 POC Glucose (mg/dL) 158 mg/dL (65-110) H 08/22/17 10:49 Random Glucose 149 mg/dL (65-105) H 08/19/17 06:00 Calcium 9.5 mg/dL (8.4-10.2) 08/19/17 06:00 Total Bilirubin 0.9 mg/dl (0.2-1.3) 08/11/17 10:30 AST 19 U/L (14-36) 08/11/17 10:30 ALT 22 U/L (9-52) 08/11/17 10:30 Alkaline Phosphatase 71 U/L (38-126) 08/11/17 10:30 Total Protein 5.9 G/DL (6.3-8.2) L 08/11/17 10:30 Albumin 2.9 g/dL (3.5-5.0) L 08/11/17 10:30 Globulin 3.1 gm/dL (2.2-3.9) 08/11/17 10:30 Albumin/Globulin Ratio 0.9 (1.0-2.1) L 08/11/17 10:30 Urine Color Straw (YELLOW) 08/17/17 09:04 Urine Clarity Slighty-cloudy (Clear) 08/17/17 09:04 Urine pH 6.0 (5.0-8.0) 08/17/17 09:04 Ur Specific [place] 1.006 (1.003-1.030) 08/17/17 09:04 Urine Protein Negative mg/dL (NEGATIVE) 08/17/17 09:04 Urine Glucose (UA) Neg mg/dL (Normal) 08/17/17 09:04 Urine Ketones Negative mg/dL (NEGATIVE) 08/17/17 09:04 Urine Blood Small (NEGATIVE) 08/17/17 09:04 Urine Nitrate Negative (NEGATIVE) 08/17/17 09:04 Urine Bilirubin Negative (NEGATIVE) 08/17/17 09:04 Urine Urobilinogen 0.2-1.0 mg/dL (0.2-1.0) 08/17/17 09:04 Ur Leukocyte Esterase Neg [place]/uL (Negative) 08/17/17 09:04 Urine RBC (Auto) 2 /hpf (0-3) 08/17/17 09:04 Urine Microscopic WBC 2 /hpf (0-5) 08/17/17 09:04 Ur Squamous Epith Cells < 1 /hpf (0-5) 08/17/17 09:04 - Hospital Course Hospital Course: 67 y/o woman w/ pmh of HTN and DM2 is admitted to TCU for continuation of physical therapy s/p right total hip replacement. The patient is POD14 and reports no complaints other than mild pain at the surgical site. The patient denies headaches, dizziness, chest pain, SOB, abdominal pain, nausea, vomiting, or fever. Patient had postoperative urinary retention. Patient seen by urologist consult. Patient had intermittent catheterization and treated w/ flomax daily. Patient reported improvement w/ medication. Patient tolerated PT. Patient reports improvement w/ pain and mobility. The patient has been seen, examined, and deemed medically fit for discharge home. The patient is to follow up w/ PMD, ortho, and urologist in 1-2 weeks. Patient to continue PT as outpatient. Patient given updated medication list and prescriptions. Discharge Exam - Head Exam Head Exam: ATRAUMATIC, NORMAL INSPECTION, NORMOCEPHALIC - Eye Exam Eye Exam: Normal appearance - ENT Exam ENT Exam: Mucous Membranes Moist - Neck Exam Neck exam: Full Rom - Respiratory Exam Respiratory Exam: Clear to PA & Lateral. absent: Accessory Muscle Use, Decreased Breath Sounds, Rales, Rhonchi, Wheezes, Respiratory Distress - Cardiovascular Exam Cardiovascular Exam: REGULAR RHYTHM. absent: Tachycardia - GI/Abdominal Exam GI & Abdominal Exam: Normal Bowel Sounds, Soft. absent: Distended, Tenderness - Extremities Exam Additional comments: right hip dressing c/d/i - Neurological Exam Neurological exam: Alert, Oriented x3 - Skin Skin Exam: Dry, Intact, Normal Color, Warm Discharge Plan - Discharge Medications Prescriptions: Aspirin 325 mg PO Q12 #60 tab Ferrous Sulfate [Ferosul] 325 mg PO TID #90 tablet Pantoprazole Sodium [Protonix] 40 mg PO DAILY #30 ect SITagliptin [Januvia] 100 mg PO DAILY #30 tab Tamsulosin [Flomax] 0.4 mg PO DAILY #30 cap - Follow Up Plan Condition: GOOD Disposition: HOME/ ROUTINE Instructions: Total Hip Replacement (DC), Urinary Retention (DC) Referrals: Gagandeep Frank MD [Staff Provider] - Lenin Ogden MD [Staff Provider] - Chevy Jose MD [Primary Care Provider] -
[2017-08-23] MEDS ORDERED: PEDI MULTIVIT PO SCH (09:00)
[2017-08-23] MEDS ORDERED: Enoxaparin 30 mg Syringe SC SCH (09:00)
[2017-08-23] MEDS ORDERED: VIT D3 PO SCH (09:00)
[2017-08-23] MEDS ORDERED: VIT K PO SCH (09:00)
== END 2017-08-22 13:15 | disposition home health service (06) | DRG 560 ==
LOC: H.TCU 21:35
PROVIDERS: ADMIT Family Medicine; ATTEND Family Medicine
PROC: F08Z4FZ Home Management Treatment using Assistive, Adaptive, Supportive or Protective Equipment (ICD-10-PCS; principal; 2017-08-11)
PROC: F07M6FZ Therapeutic Exercise Treatment of Musculoskeletal System - Whole Body using Assistive, Adaptive, Supportive or Protective Equipment (ICD-10-PCS; 2017-08-11)
PROC: F08Z0ZZ Bathing/Showering Techniques Treatment (ICD-10-PCS; 2017-08-11)
PROC: F08Z4FZ Home Management Treatment using Assistive, Adaptive, Supportive or Protective Equipment (ICD-10-PCS; 2017-08-11)
PROC: F08Z1ZZ Dressing Techniques Treatment (ICD-10-PCS; 2017-08-11)
PROC: F07Z9FZ Gait Training/Functional Ambulation Treatment using Assistive, Adaptive, Supportive or Protective Equipment (ICD-10-PCS; 2017-08-11)
DX: Z47.1 Aftercare following joint replacement surgery (principal); N17.9 Acute kidney failure, unspecified; Z96.641 Presence of right artificial hip joint; K29.70 Gastritis, unspecified, without bleeding; M19.90 Unspecified osteoarthritis, unspecified site; R10.2 Pelvic and perineal pain; R33.8 Other retention of urine; E11.22 Type 2 diabetes mellitus with diabetic chronic kidney disease; E78.00 Pure hypercholesterolemia, unspecified; I12.9 Hypertensive chronic kidney disease with stage 1 through stage 4 chronic kidney disease, or unspecified chronic kidney disease; K31.9 Disease of stomach and duodenum, unspecified; K52.9 Noninfective gastroenteritis and colitis, unspecified; N18.9 Chronic kidney disease, unspecified; Z90.710 Acquired absence of both cervix and uterus

== ENCOUNTER 2018-01-24 07:28 | Observation (INO) | payer BC, MEDICARE ==
[2018-01-24 07:35] VITALS: BMI 37.4
[2018-01-24] MEDS ORDERED: Albuterol 0.083% Inhal Sol (2.5 mg/3 mL) UD INH STA (08:05)
[2018-01-24] MEDS ORDERED: Albuterol 0.083% Inhal Sol (2.5 mg/3 mL) UD ONE (08:11)
--- NOTE | 2018-01-24 08:25 | RAD ---
Date of service: 01/24/2018 HISTORY: dyspnea COMPARISON: 03/27/2015 TECHNIQUE: Chest PA and lateral FINDINGS: LUNGS: No active pulmonary disease. PLEURA: No significant pleural effusion identified. No pneumothorax apparent. CARDIOVASCULAR: Normal. OSSEOUS STRUCTURES: Anterior cervical fusion hardware present-similar Thoracic spondylosis-similar VISUALIZED UPPER ABDOMEN: Normal. OTHER FINDINGS: None. IMPRESSION: No interval acute cardiopulmonary pathology noted
--- NOTE | 2018-01-24 08:42 | ED PDOC ---
HPI: SOB/CHF/COPD Time Seen by Provider: 01/24/18 07:47 Chief Complaint (Nursing): Dizziness/Lightheaded Chief Complaint (Provider): SOB History Per: Patient History/Exam Limitations: no limitations Onset/Duration Of Symptoms: Days (1x) Current Symptoms Are (Timing): Still Present Additional Complaint(s): 67 year old female with PMHx of high blood pressure and diabetes presents to the ER for an evaluation of SOB and heavy breathing with intermittent episodes of dizziness onset one day ago. Patient reports she felt sick 2 days ago with associated symptoms of cold, cough, runny nose, sinus pain and throat pain. She states she had a fever of 101F on Monday. Patient did not check her temperature today and the dizziness has resolved. She is compliant with her medications. Denies chest pain, vomiting, diarrhea, recent travel, hospitalization, heart or lung problems. PMD: Chevy Jose Past Medical History Reviewed: Historical Data, Nursing Documentation, Vital Signs Vital Signs: Last Vital Signs Temp 97.5 F L 01/25/18 15:44 Pulse 65 01/25/18 15:44 Resp 20 01/25/18 15:44 BP 116/70 01/25/18 15:44 Pulse Ox 98 01/25/18 15:44 - Medical History PMH: Arthritis, Diabetes, Gastritis, HTN, Hypercholesterolemia Denies: CHF, COPD, HIV, Hypothyroidism, Chronic Kidney Disease, Rheumatoid Arthritis - Surgical History Surgical History: Back Surgery, Endoscopy Other surgeries: right hip replacement in August - Family History Family History: States: Unknown Family Hx - Social History Ex-Smoker (has not smoked in the last 12 months): No Alcohol: None Drugs: Denies - Home Medications Home Medications: Ambulatory Orders Medication Instructions Recorded Aspirin [Ecotrin] 81 mg PO HS 01/24/18 Carvedilol [Coreg] 6.25 mg PO Q12 01/24/18 Dulaglutide [Trulicity] 1.5 mg SC MO 01/24/18 Empagliflozin [Jardiance] 10 mg PO QPM 01/24/18 Gabapentin Enacarbil [Horizant] 600 mg PO HS 01/24/18 Linagliptin [Tradjenta] 5 mg PO DAILY 01/24/18 Losartan [Cozaar] 25 mg PO DAILY 01/24/18 Multivitamin [Multi-Vitamin Daily] 1 tab PO DAILY 01/24/18 Pantoprazole Sodium [Protonix] 40 mg PO DAILY 01/24/18 Rosuvastatin Calcium [Crestor] 10 mg PO QPM 01/24/18 amLODIPine [Norvasc] 5 mg PO DAILY 01/24/18 - Allergies Allergies/Adverse Reactions: Allergies Allergy/AdvReac Type Severity Reaction Status Date / Time No Known Allergies Allergy Verified 08/08/17 07:50 Wells Criteria for PE - Wells Criteria for Pulmonary Embolism Clinical Signs and Symptoms of DVT: No P.E is #1 Diagnosis, or Equally Likely: Yes Heart Rate >100: No Immobilization at least 3 days;Surgery previous 4 weeks: No Previous, objectively diagnosed PE or DVT: No Hemoptysis: No Malignancy w/treatment within 6 months, or palliative: No Total Score: 1 Review of Systems ROS Statement: Except As Marked, All Systems Reviewed And Found Negative Constitutional: Positive for: Fever ENT: Positive for: Nose Pain, Nose Discharge, Throat Pain Cardiovascular: Negative for: Chest Pain Respiratory: Positive for: Cough, Shortness of Breath Gastrointestinal: Negative for: Vomiting, Diarrhea Neurological: Negative for: Dizziness Physical Exam - Reviewed Nursing Documentation Reviewed: Yes Vital Signs Reviewed: Yes - Physical Exam Appears: Positive for: Well, Non-toxic, No Acute Distress Head Exam: Positive for: ATRAUMATIC, NORMAL INSPECTION, NORMOCEPHALIC Skin: Positive for: Normal Color, Warm, Dry Eye Exam: Positive for: Normal appearance, EOMI, PERRL ENT: Positive for: Normal ENT Inspection Neck: Positive for: Normal, Painless ROM, Supple. Negative for: Decreased ROM Cardiovascular/Chest: Positive for: Regular Rate, Rhythm. Negative for: Murmur Respiratory: Positive for: Normal Breath Sounds. Negative for: Decreased Breath Sounds, Wheezing, Respiratory Distress Gastrointestinal/Abdominal: Positive for: Normal Exam, Soft. Negative for: Tenderness, Guarding, Rebound Back: Positive for: Normal Inspection Extremity: Positive for: Normal ROM. Negative for: Tenderness, Pedal Edema, Deformity Neurologic/Psych: Positive for: Alert, Oriented (x3). Negative for: Motor/ Sensory Deficits - Laboratory Results Result Diagrams: 01/25/18 05:39 01/25/18 05:39 - ECG O2 Sat by Pulse Oximetry: 100 (RA) Pulse Ox Interpretation: Normal - Progress Re-evaluation Time: 13:00 Condition: Re-examined, Unchanged Nebulizer Treatments/Peak Flow - Duonebs Number of Bronchodilator Doses given?: 1 - Steroid Treatment Steroid: Not Clinically Indicated - Clinical Response Clinical Response: Unchanged Medical Decision Making Medical Decision Making: Time: 803 Initial Impression: SOB, URI symptoms Differential Diagnosis includes but is not limited to: pneumonia, acute bronchitis, influenza, r/o CHF ACS, and PE Initial Plan: --EKG --BNP [B-Type Natriuretic Peptide] --BMP --Troponin I --CBC w/ Differential --Chest Two Views (PA/LAT) --Albuterol 2.5mg INH --Blood Culture --Peak Flow Pre/Post --Influenza A B Stat --Reevaluation Time: 822 TECHNIQUE: Chest PA and lateral FINDINGS: LUNGS: No active pulmonary disease. PLEURA: No significant pleural effusion identified. No pneumothorax apparent. CARDIOVASCULAR: Normal. OSSEOUS STRUCTURES: Anterior cervical fusion hardware present-similar Thoracic spondylosis-similar VISUALIZED UPPER ABDOMEN: Normal. OTHER FINDINGS: None. IMPRESSION: No interval acute cardiopulmonary pathology noted Scribe Attestation: Documented by Ulices Mccarty, acting as a scribe for Michelle Dickerson MD. Provider Scribe Attestation: All medical record entries made by the Scribe were at my direction and personally dictated by me. I have reviewed the chart and agree that the record accurately reflects my personal performance of the history, physical exam, medical decision making, and the department course for this patient. I have also personally directed, reviewed, and agree with the discharge instructions and disposition. Disposition - Clinical Impression Clinical Impression: SOB (shortness of breath), D-dimer, elevated - Patient ED Disposition Is Patient to be Admitted: Yes Discussed With : Chevy Jose Doctor Will See Patient In The: ED Counseled Patient/Family Regarding: Studies Performed, Diagnosis - Disposition Disposition Time: 13:00 Condition: GOOD - Pt Status Changed To: Hospital Disposition Of: Observation - POA Present On Arrival: None TRISTEN Risk Score for UA/NSTEMI - TRISTEN Risk Score Age > 64: YES 3 or more CAD Risk Factors: YES Known CAD (Stenosis greater than 50%): NO Aspirin use in past 7 days: YES Severe Angina: NO EKG ST changes greater than 0.5mm: NO Positive Cardiac Marker: NO TRISTEN Score: 3 % risk at 14 days of: all cause mortality, new or recurrent OH, or severe recurrent ischemia requiring urgen revascularization: 13%
[2018-01-24 08:56] LABS: CALCIUM 10.3 mg/dL (8.4-10.2)
[2018-01-24 08:57] LABS: BASO % 0.4 % (0.0-2.0); EOS # 0.1 K/uL (0.0-0.7); EOS % 1.1 % (0.0-4.0); HEMOGLOBIN 13.4 g/dL (12.0-16.0); LYMPH # 0.8 K/uL (1.0-4.3); MEAN CELL VOLUME 90.1 fl (81.0-99.0); MEAN CORPUSCULAR HEMOGLOBIN 30.6 pg (27.0-31.0); MEAN PLATELET VOLUME 11.2 fl (7.2-11.7); MONO # 0.8 K/uL (0.0-0.8); MONO % 9.7 % (0.0-10.0); NEUT % 79.8 % (50.0-75.0); PLATELET COUNT 157 K/uL (130-400); RBC 4.38 Mil/uL (3.80-5.20); RED CELL DISTRIBUTION WIDTH 14.5 % (11.5-14.5); WHITE BLOOD COUNT 8.8 K/uL (4.8-10.8)
[2018-01-24 09:36] LABS: B-TYPE NATRIURETIC PEPTIDE 623 pg/ml (0-900)
--- NOTE | 2018-01-24 10:19 | CARD ---
APPROVED REPORT Date of service: 01/24/2018 EKG Measurement Heart [id number] ID [id number] <Conclusion> Normal sinus rhythm IVCD Abnormal ECG
[2018-01-24 10:54] LABS: BANDS 1 % (0-2); EOSINOPHIL 2 % (0-7); LYMPHOCYTE 10 % (20-50); MONOCYTE 10 % (0-10); NEUTROPHIL 77 % (42-75); PLATELET ESTIMATE NORMAL (NORMAL); TOTAL CELLS COUNTED 100
[2018-01-24] MEDS ORDERED: Iodixanol 320 MG/ML 100 ML BOTTLE IV ONE (16:47)
[2018-01-24] MEDS ORDERED: Sodium Chloride 0.9% 0 ML IV ONE (16:47)
[2018-01-24] MEDS ORDERED: Glucagon Recombinant 1 mg Inj IM PRN ×2 (18:10)
[2018-01-24] MEDS ORDERED: Dextrose 50% SYRINGE Inj (50 ml) IV PRN (18:10)
[2018-01-24] MEDS ORDERED: Dextrose 50% SYRINGE Inj (50 ml) IVP PRN (18:10)
[2018-01-24] MEDS: Albuterol 0.083% Inhal Sol (2.5 mg/3 mL) UD INH SCH (19:13)
[2018-01-24 21:09] LABS: INR 1.1; PROTHROMBIN TIME 11.8 Seconds (9.8-13.1)
[2018-01-24 21:11] LABS: PARTIAL THROMBOPLASTIN TIME 29.5 Seconds (25.6-37.1)
[2018-01-24] MEDS: Insulin Regular 100 units/ml SC SCH (22:59)
[2018-01-25 05:52] LABS: BASO % 0.6 % (0.0-2.0); EOS # 0.1 K/uL (0.0-0.7); EOS % 1.5 % (0.0-4.0); HEMOGLOBIN 12.6 g/dL (12.0-16.0); LYMPH % 15.2 % (20.0-40.0); MEAN CELL VOLUME 91.3 fl (81.0-99.0); MEAN CORPUSCULAR HEMOGLOBIN 30.3 pg (27.0-31.0); MEAN CORPUSCULAR HGB CONC 33.2 g/dL (33.0-37.0); MEAN PLATELET VOLUME 11.3 fl (7.2-11.7); MONO # 0.9 K/uL (0.0-0.8); MONO % 13.2 % (0.0-10.0); NEUT # 4.8 K/uL (1.8-7.0); NEUT % 69.5 % (50.0-75.0); RBC 4.17 Mil/uL (3.80-5.20); RED CELL DISTRIBUTION WIDTH 14.2 % (11.5-14.5); WHITE BLOOD COUNT 6.8 K/uL (4.8-10.8)
[2018-01-25 06:12] LABS: ALB/GLOB RATIO 1.2 (1.0-2.1); ALBUMIN 3.8 g/dL (3.5-5.0); CALCIUM 9.5 mg/dL (8.4-10.2)
[2018-01-25] MEDS: Albuterol 0.083% Inhal Sol (2.5 mg/3 mL) UD INH SCH ×2 (08:05→13:39)
[2018-01-25] MEDS: Insulin Regular 100 units/ml SC SCH ×3 (08:50→16:56)
[2018-01-25] MEDS ORDERED: Pantoprazole 40 mg EC Tab PO SCH (09:00)
--- NOTE | 2018-01-25 14:20 | NM ---
Date of service: 01/25/2018 COMPARISON: Not available TECHNIQUE: 43.19 mCi technetium 99-m DTPA aerosol. 6.52 mCI technetium 99-m MAA administered intravenously. FINDINGS: VENTILATION COMPONENT: Normal. PERFUSION COMPONENT: Normal. IMPRESSION: Lowprobability ventilation perfusion scan for pulmonary embolism.
--- NOTE | 2018-01-25 14:30 | CP.PCM.HP ---
History of Present Illness - History of Present Illness History of Present Illness: Pt is a 67 y/o female with hx of HTN, DM, HLD, GERD, Osteoarthritis, and CKD who presented to ED with complaints of worsening dyspnea x 2 days. Pt states that she has been experiencing nasal congestion, sore throat, dry cough, 1 episode of fever 101 on monday and generalized weakness for the past week. 2 days ago, she began feeling short of breath. She denies any worsening of dyspnea with physical activity or when lying supine. Denies chest pain/tightness , palpitations, diaphoresis, LE edema, chills, sick contacts, recent travel, prolonged immobility, or hx of clots. PMD: Dr. Jose PMHX: HTN, DM, HLD, GERD, Osteoarthritis, and CKD Medication: see med list Surg Hx: Right Hip replacement 08/2017, Back surgery 2015 NKDA Social: Denies smoking ED Course/Interventions: Pt noted to be in mild respiratory distress Albuterol x 1 given with partial relief Cxray wnl EKG NST, Troponin x 1 CBC wnl CMP remarkable for Crea 1.3 (GFR 49) ProBNP 623 D Dimer 678 CTAngio ordered. Changed to V/Q Scan once low GFR noted. Present on Admission - Present on Admission Any Indicators Present on Admission: No History of DVT/PE: No History of Uncontrolled Diabetes: No Review of Systems - Constitutional Constitutional: absent: Chills - Cardiovascular Cardiovascular: absent: Chest Pain - Respiratory Respiratory: absent: Wheezing - Genitourinary Genitourinary: absent: Dysuria Past Patient History - Past Medical History & Family History Past Medical History?: Yes - Past Social History Smoking Status: Former Smoker - CARDIAC Hx Cardiac Disorders: Yes Hx Congestive Heart Failure: No Hx Hypercholesterolemia: Yes Hx Hypertension: Yes - PULMONARY Hx Respiratory Disorders: No Hx Chronic Obstructive Pulmonary Disease (COPD): No - NEUROLOGICAL Hx Neurological Disorder: No - HEENT Hx HEENT Problems: No - RENAL Hx Chronic Kidney Disease: No - ENDOCRINE/METABOLIC Hx Endocrine Disorders: Yes Hx Diabetes Mellitus Type 2: Yes - HEMATOLOGICAL/ONCOLOGICAL Hx Blood Disorders: No Hx Human Immunodeficiency Virus (HIV): No - INTEGUMENTARY Hx Dermatological Problems: No - MUSCULOSKELETAL/RHEUMATOLOGICAL Hx Musculoskeletal Disorders: Yes Hx Arthritis: Yes Hx Falls: No Hx Rheumatoid Arthritis: No - GASTROINTESTINAL Hx Gastrointestinal Disorders: No Hx Gastritis: Yes - GENITOURINARY/GYNECOLOGICAL Hx Genitourinary Disorders: No - PSYCHIATRIC Hx Psychophysiologic Disorder: No Hx Substance Use: No - SURGICAL HISTORY Hx Surgeries: Yes Hx Hysterectomy: Yes Other/Comment: laminectomy,cervical neck disection. rt hip replacement /rt knee SX - ANESTHESIA Hx Anesthesia: Yes Hx Anesthesia Reactions: No Hx Malignant Hyperthermia: No Has any member of the family had a problem w/ anesthesia?: No Meds Allergies/Adverse Reactions: Allergies Allergy/AdvReac Type Severity Reaction Status Date / Time No Known Allergies Allergy Verified 08/08/17 07:50 Physical Exam - Constitutional Appears: Well, No Acute Distress - Head Exam Head Exam: ATRAUMATIC, NORMAL INSPECTION - Eye Exam Eye Exam: Normal appearance - ENT Exam ENT Exam: Mucous Membranes Moist - Neck Exam Neck exam: Positive for: Full Rom - Respiratory Exam Respiratory Exam: Clear to Auscultation Bilateral, NORMAL BREATHING PATTERN. absent: Rales, Wheezes - Cardiovascular Exam Cardiovascular Exam: REGULAR RHYTHM, +S1, +S2, Systolic Murmur (+1 holosystolic murmur) - Extremities Exam Extremities exam: Positive for: normal inspection, pedal pulses present. Negative for: calf tenderness, joint swelling, pedal edema - Neurological Exam Neurological exam: Alert, Oriented x3 - Psychiatric Exam Psychiatric exam: Normal Affect, Normal Mood - Skin Skin Exam: Normal Color Results - Vital Signs Recent Vital Signs: Last Vital Signs Temp 98.3 F 01/25/18 08:09 Pulse 74 01/25/18 09:00 Resp 18 01/25/18 08:09 BP 132/69 01/25/18 08:52 Pulse Ox 96 01/25/18 08:09 - Labs Result Diagrams: 01/25/18 05:39 01/25/18 05:39 Labs: Laboratory Results - last 24 hr 01/24/18 01/24/18 01/25/18 20:40 21:35 04:51 WBC RBC Hgb Hct MCV MCH MCHC RDW Plt Count MPV Neut % (Auto) Lymph % (Auto) [place] % (Auto) Eos % (Auto) Baso % (Auto) Neut # (Auto) Lymph # (Auto) [place] # (Auto) Eos # (Auto) Baso # (Auto) PT 11.8 INR 1.1 APTT 29.5 Sodium Potassium Chloride Carbon Dioxide Anion Gap BUN Creatinine Est GFR ( Amer) Est GFR (Non-Af Amer) POC Glucose (mg/dL) 124 H 107 Random Glucose Calcium Total Bilirubin AST ALT Alkaline Phosphatase Total Protein Albumin Globulin Albumin/Globulin Ratio 01/25/18 01/25/18 01/25/18 05:39 05:39 11:12 WBC 6.8 RBC 4.17 Hgb 12.6 Hct 38.1 MCV 91.3 MCH 30.3 MCHC 33.2 RDW 14.2 Plt Count 132 MPV 11.3 Neut % (Auto) 69.5 Lymph % (Auto) 15.2 L [place] % (Auto) 13.2 H Eos % (Auto) 1.5 Baso % (Auto) 0.6 Neut # (Auto) 4.8 Lymph # (Auto) 1.0 [place] # (Auto) 0.9 H Eos # (Auto) 0.1 Baso # (Auto) 0.0 PT INR APTT Sodium 138 Potassium 5.0 Chloride 106 Carbon Dioxide 26 Anion Gap 11 BUN 16 Creatinine 1.3 H Est GFR ( Amer) 49 Est GFR (Non-Af Amer) 41 POC Glucose (mg/dL) 179 H Random Glucose 110 H Calcium 9.5 Total Bilirubin 1.1 AST 21 ALT 28 Alkaline Phosphatase 62 Total Protein 6.9 Albumin 3.8 Globulin 3.1 Albumin/Globulin Ratio 1.2 Assessment & Plan (1) SOB (shortness of breath) Status: Acute (2) URI (upper respiratory infection) Status: Acute - Assessment and Plan (Free Text) Assessment: Pt is a 67 y/o female with hx of HTN, DM, HLD, GERD, Osteoarthritis, and CKD who presented to ED with complaints of worsening dyspnea x 2 days in setting or URI and noted to have elevated D Dimer. -Dyspnea likely related to current viral syndrome. Not likely cardiac in origin. -Need to rule out PE. F/u V/Q Scan. Though D Dimer was in physiological range for patients age -Will continue with scheduled albuterol pt states it helps with her breathing -C/w with home meds for pt's chronic medical problems Discussed case with Dr. Jasper Lundy, PGY2
[2018-01-25 15:44] VITALS: BP 116/70; PULSE 65; RESP 20; TEMP 97.5
[2018-01-26 13:48] VITALS: O2SAT 100
== END 2018-01-25 17:40 | disposition home or self-care (01) ==
LOC: H.ER 07:28 → H.ERHOLD 13:28 → H.TEL 18:17
PROVIDERS: ADMIT Family Medicine; ATTEND Family Medicine
DX: J06.9 Acute upper respiratory infection, unspecified (principal); I12.9 Hypertensive chronic kidney disease with stage 1 through stage 4 chronic kidney disease, or unspecified chronic kidney disease; N18.9 Chronic kidney disease, unspecified; E11.22 Type 2 diabetes mellitus with diabetic chronic kidney disease; K21.9 Gastro-esophageal reflux disease without esophagitis; E78.5 Hyperlipidemia, unspecified; E78.00 Pure hypercholesterolemia, unspecified; K29.70 Gastritis, unspecified, without bleeding; M19.90 Unspecified osteoarthritis, unspecified site; Z96.641 Presence of right artificial hip joint; Z87.891 Personal history of nicotine dependence; Z79.84 Long term (current) use of oral hypoglycemic drugs
CPT/HCPCS: 36415; 71046; 78582; 80048; 80053; 82948; 83880; 84484; 85025; 85378; 85610; 85730; 87040; 87804; 93005; 94640; 99285; G0378

== ENCOUNTER 2018-08-29 05:57 | Inpatient (IN) | payer MEDICARE, BC ==
[2018-08-17 08:53] VITALS: BMI 33.4
--- NOTE | 2018-08-29 07:19 | CP.PCM.CON ---
History of Present Illness - History of Present Illness History of Present Illness: Neurosurgical consult: Dr. Hdz Patient is a 68 y/o female who presents for elective lumbar laminectomy and fusion. She has been c/o chronic lower back pain for many years which has progressively worsened over the last few months. The pain has been resistant to conservative means with PT and oral medications. She has has prior lumbar discectomy in the past which has not helped to relieve his symptoms. The pain has hindered her daily activities such as standing and stair climbing. She c/o of pain radiating to the RLE with occasional tingling as well. She denies any bladder/bowel dysfunction or saddle paresthesias. She denies CP/SOB/N/V/D/fever/dysuria/melena PMH: HTN, DM, HLD PSH: lumbar discectomy, L KERRI, L knee arthroscopy, cervical surgery meds: as per med rec allergy: NKDA SH: occasional ETOH, denies tobacco/drug use Review of Systems - Review of Systems All systems: reviewed and no additional remarkable complaints except Review of Systems: as per HPI Past Patient History - Past Medical History & Family History Past Medical History?: Yes Past Family History: Reviewed and not pertinent - Past Social History Smoking Status: Never Smoked - CARDIAC Hx Cardiac Disorders: Yes Hx Hypercholesterolemia: Yes Hx Hypertension: Yes - PULMONARY Hx Respiratory Disorders: No - NEUROLOGICAL Hx Neurological Disorder: No - HEENT Hx HEENT Problems: No - RENAL Hx Chronic Kidney Disease: No - ENDOCRINE/METABOLIC Hx Endocrine Disorders: Yes Hx Diabetes Mellitus Type 1: Yes - HEMATOLOGICAL/ONCOLOGICAL Hx Blood Disorders: No Hx Blood Transfusions: Yes (LONG TIME AGO) Hx Blood Transfusion Reaction: No - INTEGUMENTARY Hx Dermatological Problems: No - MUSCULOSKELETAL/RHEUMATOLOGICAL Hx Musculoskeletal Disorders: Yes Hx Back Pain: Yes Hx Falls: Yes Other/Comment: SPINAL FUSION - GASTROINTESTINAL Hx Gastrointestinal Disorders: No - GENITOURINARY/GYNECOLOGICAL Hx Genitourinary Disorders: No - PSYCHIATRIC Hx Psychophysiologic Disorder: No - SURGICAL HISTORY Hx Surgeries: Yes Other/Comment: RIGHT TOTAL HIP REPLACEMENT-2018;LEFT KNEE SURGERY;SPINAL FUSION - ANESTHESIA Hx Anesthesia: Yes Hx Anesthesia Reactions: No Hx Malignant Hyperthermia: No Has any member of the family had a problem w/ anesthesia?: No Meds Allergies/Adverse Reactions: Allergies Allergy/AdvReac Type Severity Reaction Status Date / Time No Known Allergies Allergy Verified 08/08/17 07:50 Physical Exam - Constitutional Appears: Well, No Acute Distress - Head Exam Head Exam: ATRAUMATIC, NORMOCEPHALIC Results - Labs Labs: Laboratory Results - last 24 hr 08/29/18 07:06 POC Glucose (mg/dL) 136 H - Impressions Impression: Accession No. : [id number] Patient Name / ID : CATHY GODINEZ I / [id number] Exam Date : 07/31/2018 13:51:52 ( Approved ) Study Comment : Sex / Age : F / 68Y Creator : Jose Alejandro Tena MD Dictator : Jose Alejandro Tena MD Continuity Tester : Farmworker : Jose Alejandro Tena MD Approver2 : Report Date : 08/03/2018 14:12:15 My Comment : Date of service: 07/31/2018 PROCEDURE: CT Lumbar Spine without contrast HISTORY: R/O RADICULOPATHY COMPARISON: None available. TECHNIQUE: Axial computed tomography images were obtained of the lumbar spine without the use of intravenous contrast. Coronal and sagittal reformatted images were created and reviewed. Radiation dose: Total exam DLP = 1050.97 mGy-cm. This CT exam was performed using one or more of the following dose reduction techniques: Automated exposure control, adjustment of the mA and/or kV according to patient size, and/or use of iterative reconstruction technique. FINDINGS: VERTEBRAE: An apparent degenerative grade 1 spondylolisthesis as been treated utilizing bilateral posterior spinal fusion (transpedicular screws and interconnecting rods at L4 and L5 and intervertebral fusion hardware at L4-5 as well. There is a grade 2 spondylolisthesis of L5 anterior S1 due to gross facet joint degenerative arthropathy bilaterally with gross vacuum disc changes present and disc height loss at L5-S1. Bilateral neural foramina here are elongated in the anteroposterior dimension accordingly. No acute fracture appreciable. There is an accentuated lordotic curvature with subtle retrolisthesis on a degenerative basis at L2-3 and L1-2 with L2 posterior to L3 and L1 posterior to L2 minimally (2-3 mm). Prevertebral paraspinal soft tissues appear unremarkable as imaged. DISCS/SPINAL CANAL/NEURAL FORAMINA: L1-2: Limited grade 1 spondylolisthesis is identified resulting in flattened ventral thecal sac without significant stenosis. No bony central canal or neural foraminal stenosis. L2-3: Grade 1 spondylolisthesis identified with a borderline central stenosis here with borderline right and mild left degenerative neural foraminal stenoses present. L3-4: Circumferential disc bulging and facet joint arthropathy contribute to cause moderate central canal stenosis and mild bilateral neural foraminal stenoses. L4-5: Post fusion hardware identified as discussed above with grade 1 spondylolisthesis evident and borderline central stenosis. Borderline bilateral neural foraminal stenosis. L5-S1: Grade 2 spondylolisthesis is identified a borderline central stenosis evident. No significant neural foraminal stenosis bilaterally. PREVERTEBRAL/PARASPINAL SOFT TISSUES: Unremarkable. OTHER FINDINGS: None. IMPRESSION: 1. Acute fracture identified. Grade 1 spondylolisthesis L4-5 stabilized by intervertebral as well as posterior fusion hardware. No evidence of hardware failure. 2. Moderate central canal stenosis and mild bilateral neural foraminal stenoses are identified on degenerative basis related to circumferential disc bulge and facet joint arthropathy. 3. Grade 2 spondylolisthesis L5-S1 with gross vacuum disc changes also present. Borderline central stenosis identified on a degenerative basis. 4. Limited grade 1 spondylolisthesis L1-2 and L2-3. Assessment & Plan (1) Spondylolisthesis of lumbar region Assessment and Plan: MRI images were reviewed by Dr. Hdz. He recommends L5-S1 lumbar laminectomy and fusion, possible other levels Risks/benefits/alternatives were explained to the patient who understands and agrees to proceed with procedure NPO admit to Dr. Jose D/w Dr. Hdz who agrees with above Status: Acute - Date & Time Date: 08/29/18 Time: 07:20
[2018-08-29] MEDS ORDERED: Thrombin Topical 5,000 Int Units Spray Kit ONE (07:22)
[2018-08-29] MEDS ORDERED: Absorbable Gelatin Sponge Size 12-7 ONE (07:22)
[2018-08-29] MEDS ORDERED: Bupivacaine HCl 0.5% PF (30 ml) Inj ONE (07:22)
[2018-08-29] MEDS ORDERED: Phenylephrine 10 mg/ml Inj ONE (07:36)
[2018-08-29] MEDS ORDERED: Succinylcholine 200 mg/10 ml Inj IV ONE (07:37)
[2018-08-29] MEDS ORDERED: ePHEDrine 50 mg/ml Inj ONE ×2 (07:43→08:44)
[2018-08-29] MEDS ORDERED: Propofol 10 mg/ml Inj (20 ML) ONE (07:43)
[2018-08-29] MEDS ORDERED: Midazolam 2 MG/2 ML VIAL ONE (07:43)
[2018-08-29] MEDS ORDERED: Lidocaine 4% (Laryng-O-Jet) Kit MM ONE (07:44)
[2018-08-29] MEDS ORDERED: Rocuronium 10 mg/ml (5 ml) ONE ×2 (07:44→09:47)
[2018-08-29] MEDS ORDERED: Lactated Ringer's 1,000 ML IV ONE ×4 (07:45→09:39)
[2018-08-29] MEDS ORDERED: HEMOSTATIC MATRIX 10 ML DIS.NEEDLE TOP ONE ×2 (08:35)
[2018-08-29] MEDS ORDERED: Dexamethasone 4 mg/1 ml ONE (08:44)
[2018-08-29] MEDS ORDERED: Desflurane Inhalation Anesthetic Liq (240 ml) ONE (09:41)
[2018-08-29] MEDS ORDERED: Neostigmine 1:1000 (1 mg/ml) Inj ONE (10:12)
[2018-08-29] MEDS ORDERED: Gentamicin 80mg/50ml NS 80 MG/50 ML BAG IVPB ONE (10:27)
[2018-08-29] MEDS ORDERED: Gentamicin 80 mg/2mL Inj. ONE (10:27)
[2018-08-29] MEDS ORDERED: Bupivacaine HCl 0.5% PF (30 ml) Inj IJ ONE (10:40)
[2018-08-29] MEDS ORDERED: DiphenhydrAMINE 50 mg/ml Inj IVP PRN (11:06)
[2018-08-29] MEDS ORDERED: HYDROmorphone 0.5 mg/0.5 ml ISec IVP PRN (11:06)
[2018-08-29] MEDS ORDERED: Insulin Lispro (humaLOG) 100 Units/ml Inj SC ONE (11:18)
[2018-08-29] MEDS ORDERED: Oxycodone/Acetaminophen 5/325 mg Tab PO PRN (11:53)
--- NOTE | 2018-08-29 12:06 | PCM.SURG1 ---
Surgeon's Initial Post Op Note - Surgeon's Notes Surgeon: Tyrone Hdz MD Bus Escort: Nato Vaughan PA-C Type of Anesthesia: General Endo Anesthesia Administered By: Vazquez Vo MD Pre-Operative Diagnosis: Lumbar spondylolisthesis, s/p lumbar fusion L4-5 Operative Findings: see complete operative report Post-Operative Diagnosis: L5-S1 spondylolisthesis, s/p lumbar fusion L4-5 Operation Performed: Re-exploration of lumbar fusion, lumbar laminectomy and fusion L4-S1 Specimen/Specimens Removed: none Estimated Blood Loss: EBL {In ML}: 600 Blood Products Given: N/A Drains Used: Jesus Hernandez (x 2 bilateral lower back) Post-Op Condition: Good Date of Surgery/Procedure: 08/29/18 Time of Surgery/Procedure: 08:05
--- NOTE | 2018-08-29 12:42 | RAD ---
Date of service: 08/29/2018 PROCEDURE: Greater than 1 hour for fluoroscopy HISTORY: PLIF COMPARISON: None TECHNIQUE: Standard protocol for this study/examination. FINDINGS: Total fluoroscopic time (continuous mode) utilized during the procedure 83.8 seconds. Total exam DLP: 63.17 (mGy). IMPRESSION: Submitted images from the current procedure: 3.0
[2018-08-29] MEDS: Sodium Chloride 0.9% 1,000 ML IV SCH ×3 (13:03→13:20)
[2018-08-29] MEDS ORDERED: Glucagon Recombinant 1 mg Inj IM PRN (14:27)
[2018-08-29] MEDS ORDERED: Dextrose 50% SYRINGE Inj (50 ml) IV PRN (14:27)
--- NOTE | 2018-08-29 15:34 | OP ---
PROCEDURE DATE: 08/29/2018 PREOPERATIVE DIAGNOSES: Lumbar spondylolisthesis, spinal instability, and lumbar stenosis. POSTOPERATIVE DIAGNOSES: Lumbar spondylolisthesis, spinal instability, and lumbar stenosis. PROCEDURE: Re-exploration of L4-L5 lumbar laminectomy and fusion instrumentation. Removal of L4-L5 screws and lumbar laminectomy from L4-S1 and lumbar pedicle screw fixation instrumentation from L4-S1 and posterolateral fusion. Fluoroscopy has been used. Microscopy has been used. SURGEON: Tyrone Hdz MD LABORATORY DEVELOPMENT TECHNICIAN: Nato Vaughan. Nato Vaughan is the physician assistant program manager who stayed throughout the case and helped me perform the surgery. DESCRIPTION OF PROCEDURE: The patient was brought to the operating room and anesthetized with general endotracheal anesthesia and placed in the prone position on Jesus table. Care was taken to protect all pressure points. Back of the lumbar area was thoroughly prepped and draped in the same sterile manner after marking the skin incision for lumbar laminectomy fusion. After prepping and draping the area, the skin had been incised. Bleeding skin had been controlled with bipolar merchandising assistant. After using a Bovie merchandising assistant, paraspinal muscles had been detached, attachments of spinous process, lamina from L4 to S1. The previously placed screw marquis system has been identified. The cabinets have been removed. Marquis has been removed. Screws have been removed. At this point, by using a traditional landmark, point of entry has been noted for S1 pedicle screws. Initially a K-wire and later a drill have been used in order to enter the pedicles of S1. Polyaxial titanium screws of NuVasive system have been placed and screws have been placed at L4 and L5 as well with higher diameter and titanium rods have been placed. Cap nuts have been used in order to secure them. All this has been done under fluoroscopy; and at this point, under magnification, the spinous process of L4, L5, and S1 have been removed. By using a high-speed drill, the lamina and medial part of the facets drilled to actual thickness. By using a fine Kerrison punch, thinned out the lamina and medial part of the facets. Ligamentum flavum has been removed decompressing the area. Lateral aspect of the facet joint and transverse process have been decorticated and demineralized bone placed in the area achieving a posterolateral fusion. After that, hemostasis was best achieved. Jesus drain was placed in the wound and brought out through a separate stab neck skin incision. Muscles and fascia were closed with 1 Vicryl, subcutaneous tissue with 3-0 Vicryl, skin has been with intradermal 3-0 Vicryl stitches. The patient tolerated the procedure. After the procedure, mobilized to the recovery room in stabilized condition. Tyrone Hdz MD
[2018-08-29] MEDS ORDERED: ceFAZolin 2 GM in Sodium Chloride 0.9% 100 ML IVPB SCH (17:00)
[2018-08-29] MEDS: Insulin Regular 100 units/ml SC SCH ×2 (18:21→21:32)
[2018-08-29] MEDS: Pantoprazole 40 mg EC Tab PO SCH (18:21)
[2018-08-29] MEDS: Multivitamin With Minerals Tab PO SCH (18:21)
[2018-08-29] MEDS: HYDROmorphone 0.5 mg/0.5 ml ISec IVP PRN (21:28)
[2018-08-29] MEDS: ceFAZolin 2 GM in Sodium Chloride 0.9% 100 ML IVPB SCH (21:29)
[2018-08-29] MEDS: Lactated Ringer's 1,000 ML IV SCH (21:32)
[2018-08-29] MEDS: Docusate-Senna 50 mg-8.6 mg Tab PO SCH (22:52)
[2018-08-30] MEDS: ceFAZolin 2 GM in Sodium Chloride 0.9% 100 ML IVPB SCH ×3 (01:28→17:13)
[2018-08-30] MEDS: Lactated Ringer's 1,000 ML IV SCH ×2 (03:37→21:20)
[2018-08-30 05:49] LABS: HEMOGLOBIN 9.7 g/dL (12.0-16.0); MEAN CELL VOLUME 92.4 fl (81.0-99.0); MEAN CORPUSCULAR HEMOGLOBIN 30.8 pg (27.0-31.0); MEAN CORPUSCULAR HGB CONC 33.4 g/dL (33.0-37.0); RBC 3.13 Mil/uL (3.80-5.20); RED CELL DISTRIBUTION WIDTH 13.6 % (11.5-14.5); WHITE BLOOD COUNT 9.7 K/uL (4.8-10.8)
[2018-08-30 06:08] LABS: CALCIUM 9.4 mg/dL (8.4-10.2)
[2018-08-30] MEDS: Insulin Regular 100 units/ml SC SCH ×4 (07:40→22:48)
--- NOTE | 2018-08-30 08:15 | CP.PCM.PN ---
Subjective - Date & Time of Evaluation Date of Evaluation: 08/30/18 Time of Evaluation: 08:12 - Subjective Subjective: Patient seen and examined at bedside. Pain well controlled. Tolerating diet. Tolerating PT well, OOB with assistance. C/o slight lightheadedness. Denies CP/SOB/fever. Objective - Vital Signs/Intake and Output Vital Signs (last 24 hours): Temp Pulse Resp BP Pulse Ox 97.6 F 64 16 110/65 97 08/30/18 05:00 08/30/18 05:00 08/30/18 05:00 08/30/18 05:00 08/30/18 05:00 Intake and Output: 08/30/18 08/30/18 06:59 18:59 Intake Total 1325 Output Total 305 Balance 1020 - Medications Medications: Current Medications Acetaminophen (Tylenol 325mg Tab) 650 mg PO Q4 PRN PRN Reason: Fever 101 degrees fahrenheit Amlodipine Besylate (Norvasc) 5 mg PO DAILY [facility] Last Admin: 08/29/18 18:21 Dose: 5 mg Atorvastatin Calcium (Lipitor) 20 mg PO QPM [facility] Last Admin: 08/29/18 18:21 Dose: 20 mg Cyclobenzaprine HCl (Flexeril) 5 mg PO Q8 PRN PRN Reason: Muscle spasm Dextrose (Dextrose 50% Inj) 0 ml IV STAT PRN; Protocol PRN Reason: Hypoglycemia Protocol Dextrose (Glutose 15) 0 gm PO ONCE PRN; Protocol PRN Reason: Hypoglycemia Protocol Ferrous Sulfate (Feosol) 325 mg PO BID [facility] Folic Acid (Folic Acid) 1 mg PO DAILY [facility] Gabapentin (Neurontin) 600 mg PO [facility] Last Admin: 08/29/18 21:33 Dose: 600 mg Glucagon (Glucagen Diagnostic Kit) 0 mg IM STAT PRN; Protocol PRN Reason: Hypoglycemia Protocol Home Med (Empagliflozin [Jardiance]) 10 mg PO QPM [facility] Hydromorphone HCl (Dilaudid) 0.5 mg IVP Q10M PRN PRN Reason: Pain, moderate (4-7) Last Admin: 08/29/18 13:00 Dose: 0.5 mg Hydromorphone HCl (Dilaudid) 0.5 mg IVP Q4 PRN PRN Reason: Pain, severe (8-10) Last Admin: 08/29/18 21:28 Dose: 0.5 mg Lactated Ringer's (Lactated Ringer's) 1,000 mls @ 125 mls/hr IV .Q8H [facility] Last Admin: 08/30/18 03:37 Dose: 125 mls/hr Sodium Chloride (Sodium Chloride 0.9%) 1,000 mls @ 100 mls/hr IV .Q10H [facility] Stop: 08/30/18 11:54 Last Admin: 08/29/18 13:20 Dose: 0 mls Cefazolin Sodium 2 gm/ Sodium (Chloride) 100 mls @ 100 mls/hr IVPB Q8 [facility]; Protocol Stop: 08/31/18 17:01 Last Admin: 08/30/18 01:28 Dose: 100 mls/hr Insulin Human Regular (Humulin R) 0 units SC ACHS [facility]; Protocol Last Admin: 08/29/18 21:32 Dose: Not Given Losartan Potassium (Cozaar) 100 mg PO DAILY [facility] Last Admin: 08/29/18 18:21 Dose: 100 mg Multivitamins/Minerals (Therapeutic-M Tab) 1 tab PO DAILY [facility] Last Admin: 08/29/18 18:21 Dose: 1 tab Ondansetron HCl (Zofran Inj) 4 mg IVP ONCE PRN PRN Reason: Nausea/Vomiting Oxycodone/Acetaminophen (Percocet 5/325 Mg Tab) 2 tab PO Q4 PRN PRN Reason: Pain, moderate (4-7) Stop: 09/01/18 11:54 Pantoprazole Sodium (Protonix Ec Tab) 40 mg PO DAILY [facility] Last Admin: 08/29/18 18:21 Dose: 40 mg Senna/Docusate Sodium (Senokot S 50 Mg-8.6 Mg) 2 tab PO HS [facility] Last Admin: 08/29/18 22:52 Dose: 2 tab - Labs Labs: 08/30/18 05:41 08/30/18 05:41 - Back Exam Additional comments: abd binder in place Dressings CDI moderate serosang drainage from b/l BECCA drains (370 L , 135 R) sensation intact SP/DP/TN motor intact EHL/FHL - Neurological Exam Neurological Exam: Alert, Awake, CN II-XII Intact, Oriented x3 Assessment and Plan (1) Spondylolisthesis of lumbar region Assessment & Plan: POD#1 s/p L4-S1 laminectomy and fusion -Maintain drains, monitor output -low HGB, monitor vitals for now -PT/OT -maintain abd binder -d/w Dr. Hdz who agrees with above Status: Acute
[2018-08-30] MEDS: Multivitamin With Minerals Tab PO SCH (09:45)
[2018-08-30] MEDS: Pantoprazole 40 mg EC Tab PO SCH (09:45)
[2018-08-30] MEDS: HYDROmorphone 0.5 mg/0.5 ml ISec IVP PRN (21:19)
[2018-08-30] MEDS: Docusate-Senna 50 mg-8.6 mg Tab PO SCH (22:00)
[2018-08-31] MEDS: Docusate-Senna 50 mg-8.6 mg Tab PO SCH ×2 (01:18→22:14)
[2018-08-31] MEDS: Lactated Ringer's 1,000 ML IV SCH (04:07)
[2018-08-31 05:38] LABS: HEMOGLOBIN 10.2 g/dL (12.0-16.0); MEAN CORPUSCULAR HEMOGLOBIN 30.6 pg (27.0-31.0); MEAN CORPUSCULAR HGB CONC 32.9 g/dL (33.0-37.0); RBC 3.34 Mil/uL (3.80-5.20); WHITE BLOOD COUNT 8.1 K/uL (4.8-10.8)
[2018-08-31 05:50] LABS: CALCIUM 9.7 mg/dL (8.4-10.2)
[2018-08-31] MEDS: Insulin Regular 100 units/ml SC SCH ×4 (06:33→22:06)
--- NOTE | 2018-08-31 09:10 | CP.PCM.PN ---
Subjective - Date & Time of Evaluation Date of Evaluation: 08/31/18 Time of Evaluation: 09:08 - Subjective Subjective: Patient states she is urinating frequently and it is keeping her up at night. Pain is moderate but controlled. The shooting pain she had down her legs preop has resolved. Denies CP/SOB/dizziness/numbness/tingling. Objective - Vital Signs/Intake and Output Vital Signs (last 24 hours): Temp Pulse Resp BP Pulse Ox 98.1 F 70 18 158/84 H 97 08/31/18 08:02 08/31/18 08:02 08/31/18 08:02 08/31/18 08:02 08/31/18 08:02 Intake and Output: 08/31/18 08/31/18 06:59 18:59 Output Total 150 Balance -150 - Medications Medications: Current Medications Acetaminophen (Tylenol 325mg Tab) 650 mg PO Q4 PRN PRN Reason: Fever 101 degrees fahrenheit Amlodipine Besylate (Norvasc) 5 mg PO DAILY [facility] Last Admin: 08/30/18 09:46 Dose: 5 mg Atorvastatin Calcium (Lipitor) 20 mg PO QPM [facility] Last Admin: 08/30/18 17:02 Dose: 20 mg Cyclobenzaprine HCl (Flexeril) 5 mg PO Q8 PRN PRN Reason: Muscle spasm Last Admin: 08/30/18 17:02 Dose: 5 mg Dextrose (Dextrose 50% Inj) 0 ml IV STAT PRN; Protocol PRN Reason: Hypoglycemia Protocol Dextrose (Glutose 15) 0 gm PO ONCE PRN; Protocol PRN Reason: Hypoglycemia Protocol Ferrous Sulfate (Feosol) 325 mg PO BID [facility] Last Admin: 08/30/18 16:51 Dose: 325 mg Folic Acid (Folic Acid) 1 mg PO DAILY [facility] Last Admin: 08/30/18 09:46 Dose: 1 mg Gabapentin (Neurontin) 600 mg PO HS [facility] Last Admin: 08/30/18 21:20 Dose: 600 mg Glucagon (Glucagen Diagnostic Kit) 0 mg IM STAT PRN; Protocol PRN Reason: Hypoglycemia Protocol Hydromorphone HCl (Dilaudid) 0.5 mg IVP Q10M PRN PRN Reason: Pain, moderate (4-7) Last Admin: 08/29/18 13:00 Dose: 0.5 mg Hydromorphone HCl (Dilaudid) 0.5 mg IVP Q4 PRN PRN Reason: Pain, severe (8-10) Last Admin: 08/30/18 21:19 Dose: 0.5 mg Lactated Ringer's (Lactated Ringer's) 1,000 mls @ 125 mls/hr IV .Q8H [facility] Last Admin: 08/31/18 04:07 Dose: 125 mls/hr Insulin Human Regular (Humulin R) 0 units SC ACHS [facility]; Protocol Last Admin: 08/31/18 06:33 Dose: Not Given Losartan Potassium (Cozaar) 100 mg PO DAILY [facility] Last Admin: 08/30/18 09:46 Dose: 100 mg Multivitamins/Minerals (Therapeutic-M Tab) 1 tab PO DAILY [facility] Last Admin: 08/30/18 09:45 Dose: 1 tab Ondansetron HCl (Zofran Inj) 4 mg IVP ONCE PRN PRN Reason: Nausea/Vomiting Oxycodone/Acetaminophen (Percocet 5/325 Mg Tab) 2 tab PO Q4 PRN PRN Reason: Pain, moderate (4-7) Stop: 09/01/18 11:54 Pantoprazole Sodium (Protonix Ec Tab) 40 mg PO DAILY [facility] Last Admin: 08/30/18 09:45 Dose: 40 mg Senna/Docusate Sodium (Senokot S 50 Mg-8.6 Mg) 2 tab PO HS [facility] Last Admin: 08/30/18 22:00 Dose: 2 tab - Labs Labs: 08/31/18 04:35 08/31/18 04:35 - Back Exam Additional comments: L 325cc R 125cc from 6am to 9pm dressing intact, scant sang drainage BLE sensation intact L2-S1 5/5 great toe ext, DFp/PF, knee flex/ext calves soft NT neg homans patient eating breakfast sitting on EOB Assessment and Plan (1) Spondylolisthesis of lumbar region Assessment & Plan: POD#2 s/p hardware removal and L4-S1 laminectomy and fusion monitor drainage, BECCA left intact PT/OT VTE proph encourage OOB dw Dr. Hdz, agrees with above Status: Acute
[2018-08-31] MEDS: Multivitamin With Minerals Tab PO SCH (09:51)
[2018-08-31] MEDS: Pantoprazole 40 mg EC Tab PO SCH (09:51)
[2018-09-01] MEDS: Insulin Regular 100 units/ml SC SCH ×4 (06:32→21:45)
[2018-09-01] MEDS: Pantoprazole 40 mg EC Tab PO SCH (09:20)
[2018-09-01] MEDS: Oxycodone/Acetaminophen 5/325 mg Tab PO PRN (16:25)
[2018-09-01] MEDS: Multivitamin With Minerals Tab PO SCH (17:41)
[2018-09-01] MEDS: Docusate-Senna 50 mg-8.6 mg Tab PO SCH (21:43)
[2018-09-02] MEDS: Insulin Regular 100 units/ml SC SCH ×4 (06:45→22:50)
[2018-09-02] MEDS: Oxycodone/Acetaminophen 5/325 mg Tab PO PRN (09:36)
[2018-09-02] MEDS: Multivitamin With Minerals Tab PO SCH (09:37)
[2018-09-02] MEDS: Pantoprazole 40 mg EC Tab PO SCH (09:38)
[2018-09-02] MEDS: Docusate-Senna 50 mg-8.6 mg Tab PO SCH (22:11)
--- NOTE | 2018-09-03 07:07 | CP.PCM.HP ---
History of Present Illness - History of Present Illness History of Present Illness: This is a 68 y/o female with hx of HTN hyperlipidemia and DM 2 CKD 1 who has a hx of chronic back pain and previous discectomy but continued to have worsening of back pain. She was admitted ofr scheduled L5S1 laminectomy. Recent CT scan of the LS spine showed diffused LS spondylisthesis but worse at the L5S1 level. 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 Conservative measures such as Phys therapy and pain meds were initiated but failed hence was advised laminectomy. Present on Admission - Present on Admission Any Indicators Present on Admission: No History of DVT/PE: No History of Uncontrolled Diabetes: No Urinary Catheter: No Decubitus Ulcer Present: No Past Patient History - Past Medical History & Family History Past Medical History?: Yes - Past Social History Smoking Status: Never Smoked - CARDIAC Hx Cardiac Disorders: Yes Hx Hypercholesterolemia: Yes Hx Hypertension: Yes - PULMONARY Hx Respiratory Disorders: No - NEUROLOGICAL Hx Neurological Disorder: No - HEENT Hx HEENT Problems: No - RENAL Hx Chronic Kidney Disease: No - ENDOCRINE/METABOLIC Hx Endocrine Disorders: Yes Hx Diabetes Mellitus Type 1: Yes - HEMATOLOGICAL/ONCOLOGICAL Hx Blood Disorders: No Hx Blood Transfusions: Yes (LONG TIME AGO) Hx Blood Transfusion Reaction: No - INTEGUMENTARY Hx Dermatological Problems: No - MUSCULOSKELETAL/RHEUMATOLOGICAL Hx Musculoskeletal Disorders: Yes Hx Back Pain: Yes Hx Falls: Yes Other/Comment: SPINAL FUSION - GASTROINTESTINAL Hx Gastrointestinal Disorders: No - GENITOURINARY/GYNECOLOGICAL Hx Genitourinary Disorders: No - PSYCHIATRIC Hx Psychophysiologic Disorder: No - SURGICAL HISTORY Hx Surgeries: Yes Other/Comment: RIGHT TOTAL HIP REPLACEMENT-2018;LEFT KNEE SURGERY;SPINAL FUSION - ANESTHESIA Hx Anesthesia: Yes Hx Anesthesia Reactions: No Hx Malignant Hyperthermia: No Has any member of the family had a problem w/ anesthesia?: No Meds Allergies/Adverse Reactions: Allergies Allergy/AdvReac Type Severity Reaction Status Date / Time No Known Allergies Allergy Verified 08/08/17 07:50 Physical Exam - Head Exam Head Exam: NORMAL INSPECTION - Eye Exam Eye Exam: Normal appearance - ENT Exam ENT Exam: Mucous Membranes Moist - Respiratory Exam Respiratory Exam: Clear to Auscultation Bilateral - Cardiovascular Exam Cardiovascular Exam: REGULAR RHYTHM - GI/Abdominal Exam GI & Abdominal Exam: Normal Bowel Sounds - Neurological Exam Neurological exam: CN II-XII Intact - Psychiatric Exam Psychiatric exam: Normal Mood Results - Vital Signs Recent Vital Signs: Last Vital Signs Temp 98.4 F 09/03/18 05:01 Pulse 87 09/03/18 05:01 Resp 20 09/03/18 05:01 BP 132/76 09/03/18 05:01 Pulse Ox 96 09/03/18 05:01 - Labs Result Diagrams: 08/31/18 04:35 08/31/18 04:35 Labs: Laboratory Results - last 24 hr 09/02/18 09/02/18 09/02/18 10:45 15:36 21:20 POC Glucose (mg/dL) 318 H 236 H 170 H 09/03/18 05:29 POC Glucose (mg/dL) 155 H Assessment & Plan (1) Spondylolisthesis of lumbar region Status: Acute (2) Hypercholesterolemia Status: Acute (3) Diabetes mellitus Status: Chronic Priority: Low (4) Hypertension Status: Chronic Priority: Low - Assessment and Plan (Free Text) Plan: medically stable for surgery Pain meds will follow up post op.
--- NOTE | 2018-09-03 07:18 | CP.PCM.PN ---
Subjective - Date & Time of Evaluation Date of Evaluation: 08/30/18 Time of Evaluation: 11:00 - Subjective Subjective: Patient is doing well postop Has some pain accucheck noted to be elevated Has no chest pain or SOB Noted normal creatinine. Objective - Vital Signs/Intake and Output Vital Signs (last 24 hours): Temp Pulse Resp BP Pulse Ox 98.4 F 87 20 132/76 96 09/03/18 05:01 09/03/18 05:01 09/03/18 05:01 09/03/18 05:01 09/03/18 05:01 Intake and Output: 09/03/18 09/03/18 06:59 18:59 Output Total 75 Balance -75 - Medications Medications: Current Medications Acetaminophen (Tylenol 325mg Tab) 650 mg PO Q4 PRN PRN Reason: Fever 101 degrees fahrenheit Atorvastatin Calcium (Lipitor) 20 mg PO QPM [facility] Last Admin: 09/02/18 16:51 Dose: 20 mg Cyclobenzaprine HCl (Flexeril) 5 mg PO Q8 PRN PRN Reason: Muscle spasm Last Admin: 08/30/18 17:02 Dose: 5 mg Dextrose (Dextrose 50% Inj) 0 ml IV STAT PRN; Protocol PRN Reason: Hypoglycemia Protocol Dextrose (Glutose 15) 0 gm PO ONCE PRN; Protocol PRN Reason: Hypoglycemia Protocol Ferrous Sulfate (Feosol) 325 mg PO BID [facility] Last Admin: 09/02/18 16:50 Dose: 325 mg Folic Acid (Folic Acid) 1 mg PO DAILY [facility] Last Admin: 09/02/18 09:38 Dose: 1 mg Gabapentin (Neurontin) 600 mg PO HS [facility] Last Admin: 09/02/18 22:11 Dose: 600 mg Glucagon (Glucagen Diagnostic Kit) 0 mg IM STAT PRN; Protocol PRN Reason: Hypoglycemia Protocol Insulin Human Regular (Humulin R) 0 units SC [facility]; Protocol Last Admin: 09/02/18 22:50 Dose: Not Given Losartan Potassium (Cozaar) 100 mg PO DAILY [facility] Last Admin: 09/02/18 09:38 Dose: Not Given Multivitamins/Minerals (Therapeutic-M Tab) 1 tab PO DAILY [facility] Last Admin: 09/02/18 09:37 Dose: 1 tab Ondansetron HCl (Zofran Inj) 4 mg IVP ONCE PRN PRN Reason: Nausea/Vomiting Oxycodone/Acetaminophen (Percocet 5/325 Mg Tab) 2 tab PO Q4 PRN PRN Reason: Pain, moderate (4-7) Stop: 09/04/18 16:18 Last Admin: 09/02/18 09:36 Dose: 2 tab Pantoprazole Sodium (Protonix Ec Tab) 40 mg PO DAILY [facility] Last Admin: 09/02/18 09:38 Dose: 40 mg Senna/Docusate Sodium (Senokot S 50 Mg-8.6 Mg) 2 tab PO HS [facility] Last Admin: 09/02/18 22:11 Dose: 2 tab Sitagliptin Phosphate (Januvia) 100 mg PO DAILY [facility] Last Admin: 09/02/18 13:34 Dose: 100 mg - Labs Labs: 08/31/18 04:35 08/31/18 04:35 - Head Exam Head Exam: NORMAL INSPECTION - Eye Exam Eye Exam: Normal appearance - ENT Exam ENT Exam: Mucous Membranes Moist - Respiratory Exam Respiratory Exam: Clear to Ausculation Bilateral - Cardiovascular Exam Cardiovascular Exam: REGULAR RHYTHM - GI/Abdominal Exam GI & Abdominal Exam: Normal Bowel Sounds - Psychiatric Exam Psychiatric exam: Normal Mood Assessment and Plan (1) Spondylolisthesis of lumbar region Status: Acute (2) Hypercholesterolemia Status: Acute (3) Diabetes mellitus Status: Chronic (4) Hypertension Status: Chronic - Assessment and Plan (Free Text) Plan: Cont meds Cont tx start Phys therapy Pain meds accucheck restart po meds may be able to add metformin again.
--- NOTE | 2018-09-03 07:20 | CP.PCM.PN ---
Subjective - Date & Time of Evaluation Date of Evaluation: 08/31/18 Time of Evaluation: 10:35 - Subjective Subjective: Patient continues to have a lot of drainage postop. Has minimal pain Able to do PT FBS remains elevated. Objective - Vital Signs/Intake and Output Vital Signs (last 24 hours): Temp Pulse Resp BP Pulse Ox 98.4 F 87 20 132/76 96 09/03/18 05:01 09/03/18 05:01 09/03/18 05:01 09/03/18 05:01 09/03/18 05:01 Intake and Output: 09/03/18 09/03/18 06:59 18:59 Output Total 75 Balance -75 - Medications Medications: Current Medications Acetaminophen (Tylenol 325mg Tab) 650 mg PO Q4 PRN PRN Reason: Fever 101 degrees fahrenheit Atorvastatin Calcium (Lipitor) 20 mg PO QPM [facility] Last Admin: 09/02/18 16:51 Dose: 20 mg Cyclobenzaprine HCl (Flexeril) 5 mg PO Q8 PRN PRN Reason: Muscle spasm Last Admin: 08/30/18 17:02 Dose: 5 mg Dextrose (Dextrose 50% Inj) 0 ml IV STAT PRN; Protocol PRN Reason: Hypoglycemia Protocol Dextrose (Glutose 15) 0 gm PO ONCE PRN; Protocol PRN Reason: Hypoglycemia Protocol Ferrous Sulfate (Feosol) 325 mg PO BID [facility] Last Admin: 09/02/18 16:50 Dose: 325 mg Folic Acid (Folic Acid) 1 mg PO DAILY [facility] Last Admin: 09/02/18 09:38 Dose: 1 mg Gabapentin (Neurontin) 600 mg PO HS [facility] Last Admin: 09/02/18 22:11 Dose: 600 mg Glucagon (Glucagen Diagnostic Kit) 0 mg IM STAT PRN; Protocol PRN Reason: Hypoglycemia Protocol Insulin Human Regular (Humulin R) 0 units SC ACHS [facility]; Protocol Last Admin: 09/02/18 22:50 Dose: Not Given Losartan Potassium (Cozaar) 100 mg PO DAILY [facility] Last Admin: 09/02/18 09:38 Dose: Not Given Multivitamins/Minerals (Therapeutic-M Tab) 1 tab PO DAILY [facility] Last Admin: 09/02/18 09:37 Dose: 1 tab Ondansetron HCl (Zofran Inj) 4 mg IVP ONCE PRN PRN Reason: Nausea/Vomiting Oxycodone/Acetaminophen (Percocet 5/325 Mg Tab) 2 tab PO Q4 PRN PRN Reason: Pain, moderate (4-7) Stop: 09/04/18 16:18 Last Admin: 09/02/18 09:36 Dose: 2 tab Pantoprazole Sodium (Protonix Ec Tab) 40 mg PO DAILY [facility] Last Admin: 09/02/18 09:38 Dose: 40 mg Senna/Docusate Sodium (Senokot S 50 Mg-8.6 Mg) 2 tab PO HS [facility] Last Admin: 09/02/18 22:11 Dose: 2 tab Sitagliptin Phosphate (Januvia) 100 mg PO DAILY [facility] Last Admin: 09/02/18 13:34 Dose: 100 mg - Labs Labs: 08/31/18 04:35 08/31/18 04:35 - Head Exam Head Exam: NORMAL INSPECTION - Eye Exam Eye Exam: Normal appearance - ENT Exam ENT Exam: Mucous Membranes Moist - Respiratory Exam Respiratory Exam: Clear to Ausculation Bilateral - Cardiovascular Exam Cardiovascular Exam: REGULAR RHYTHM - GI/Abdominal Exam GI & Abdominal Exam: Soft - Neurological Exam Neurological Exam: Awake, Oriented x3 Assessment and Plan (1) Spondylolisthesis of lumbar region Status: Acute (2) Hypercholesterolemia Status: Acute (3) Diabetes mellitus Status: Chronic (4) Hypertension Status: Chronic - Assessment and Plan (Free Text) Plan: Cont meds Cont PT Pain meds Mponitor drainage and will Dci f less than 50 cc per 24 hrs
--- NOTE | 2018-09-03 07:22 | CP.PCM.PN ---
Subjective - Date & Time of Evaluation Date of Evaluation: 09/01/18 Time of Evaluation: 11:00 - Subjective Subjective: Patient remains stable Still with significant drainage. Has no chest pain or SOB. On pain meds. Objective - Vital Signs/Intake and Output Vital Signs (last 24 hours): Temp Pulse Resp BP Pulse Ox 98.4 F 87 20 132/76 96 09/03/18 05:01 09/03/18 05:01 09/03/18 05:01 09/03/18 05:01 09/03/18 05:01 Intake and Output: 09/03/18 09/03/18 06:59 18:59 Output Total 75 Balance -75 - Medications Medications: Current Medications Acetaminophen (Tylenol 325mg Tab) 650 mg PO Q4 PRN PRN Reason: Fever 101 degrees fahrenheit Atorvastatin Calcium (Lipitor) 20 mg PO QPM [facility] Last Admin: 09/02/18 16:51 Dose: 20 mg Cyclobenzaprine HCl (Flexeril) 5 mg PO Q8 PRN PRN Reason: Muscle spasm Last Admin: 08/30/18 17:02 Dose: 5 mg Dextrose (Dextrose 50% Inj) 0 ml IV STAT PRN; Protocol PRN Reason: Hypoglycemia Protocol Dextrose (Glutose 15) 0 gm PO ONCE PRN; Protocol PRN Reason: Hypoglycemia Protocol Ferrous Sulfate (Feosol) 325 mg PO BID [facility] Last Admin: 09/02/18 16:50 Dose: 325 mg Folic Acid (Folic Acid) 1 mg PO DAILY [facility] Last Admin: 09/02/18 09:38 Dose: 1 mg Gabapentin (Neurontin) 600 mg PO HS [facility] Last Admin: 09/02/18 22:11 Dose: 600 mg Glucagon (Glucagen Diagnostic Kit) 0 mg IM STAT PRN; Protocol PRN Reason: Hypoglycemia Protocol Insulin Human Regular (Humulin R) 0 units SC ACHS [facility]; Protocol Last Admin: 09/02/18 22:50 Dose: Not Given Losartan Potassium (Cozaar) 100 mg PO DAILY [facility] Last Admin: 09/02/18 09:38 Dose: Not Given Multivitamins/Minerals (Therapeutic-M Tab) 1 tab PO DAILY [facility] Last Admin: 09/02/18 09:37 Dose: 1 tab Ondansetron HCl (Zofran Inj) 4 mg IVP ONCE PRN PRN Reason: Nausea/Vomiting Oxycodone/Acetaminophen (Percocet 5/325 Mg Tab) 2 tab PO Q4 PRN PRN Reason: Pain, moderate (4-7) Stop: 09/04/18 16:18 Last Admin: 09/02/18 09:36 Dose: 2 tab Pantoprazole Sodium (Protonix Ec Tab) 40 mg PO DAILY [facility] Last Admin: 09/02/18 09:38 Dose: 40 mg Senna/Docusate Sodium (Senokot S 50 Mg-8.6 Mg) 2 tab PO HS [facility] Last Admin: 09/02/18 22:11 Dose: 2 tab Sitagliptin Phosphate (Januvia) 100 mg PO DAILY [facility] Last Admin: 09/02/18 13:34 Dose: 100 mg - Labs Labs: 08/31/18 04:35 08/31/18 04:35 - Head Exam Head Exam: NORMAL INSPECTION - Eye Exam Eye Exam: Normal appearance - ENT Exam ENT Exam: Mucous Membranes Moist - Respiratory Exam Respiratory Exam: Clear to Ausculation Bilateral - Cardiovascular Exam Cardiovascular Exam: REGULAR RHYTHM - GI/Abdominal Exam GI & Abdominal Exam: Soft - Neurological Exam Neurological Exam: Awake, Oriented x3 Assessment and Plan (1) Spondylolisthesis of lumbar region Status: Acute (2) Hypercholesterolemia Status: Acute (3) Diabetes mellitus Status: Chronic (4) Hypertension Status: Chronic - Assessment and Plan (Free Text) Plan: Cont meds Cont pain meds accucheck Phys therapy DC plans
--- NOTE | 2018-09-03 07:29 | CP.PCM.PN ---
Subjective - Date & Time of Evaluation Date of Evaluation: 09/02/18 Time of Evaluation: 11:00 - Subjective Subjective: Patient remains stable Still with significant drainage. FBS elevated. Has no fever SOB or chest pain. Objective - Vital Signs/Intake and Output Vital Signs (last 24 hours): Temp Pulse Resp BP Pulse Ox 98.4 F 87 20 132/76 96 09/03/18 05:01 09/03/18 05:01 09/03/18 05:01 09/03/18 05:01 09/03/18 05:01 Intake and Output: 09/03/18 09/03/18 06:59 18:59 Output Total 75 Balance -75 - Medications Medications: Current Medications Acetaminophen (Tylenol 325mg Tab) 650 mg PO Q4 PRN PRN Reason: Fever 101 degrees fahrenheit Atorvastatin Calcium (Lipitor) 20 mg PO QPM [facility] Last Admin: 09/02/18 16:51 Dose: 20 mg Cyclobenzaprine HCl (Flexeril) 5 mg PO Q8 PRN PRN Reason: Muscle spasm Last Admin: 08/30/18 17:02 Dose: 5 mg Dextrose (Dextrose 50% Inj) 0 ml IV STAT PRN; Protocol PRN Reason: Hypoglycemia Protocol Dextrose (Glutose 15) 0 gm PO ONCE PRN; Protocol PRN Reason: Hypoglycemia Protocol Ferrous Sulfate (Feosol) 325 mg PO BID [facility] Last Admin: 09/02/18 16:50 Dose: 325 mg Folic Acid (Folic Acid) 1 mg PO DAILY [facility] Last Admin: 09/02/18 09:38 Dose: 1 mg Gabapentin (Neurontin) 600 mg PO HS [facility] Last Admin: 09/02/18 22:11 Dose: 600 mg Glucagon (Glucagen Diagnostic Kit) 0 mg IM STAT PRN; Protocol PRN Reason: Hypoglycemia Protocol Insulin Human Regular (Humulin R) 0 units SC ACHS [facility]; Protocol Last Admin: 09/02/18 22:50 Dose: Not Given Losartan Potassium (Cozaar) 100 mg PO DAILY [facility] Last Admin: 09/02/18 09:38 Dose: Not Given Multivitamins/Minerals (Therapeutic-M Tab) 1 tab PO DAILY [facility] Last Admin: 09/02/18 09:37 Dose: 1 tab Ondansetron HCl (Zofran Inj) 4 mg IVP ONCE PRN PRN Reason: Nausea/Vomiting Oxycodone/Acetaminophen (Percocet 5/325 Mg Tab) 2 tab PO Q4 PRN PRN Reason: Pain, moderate (4-7) Stop: 09/04/18 16:18 Last Admin: 09/02/18 09:36 Dose: 2 tab Pantoprazole Sodium (Protonix Ec Tab) 40 mg PO DAILY [facility] Last Admin: 09/02/18 09:38 Dose: 40 mg Senna/Docusate Sodium (Senokot S 50 Mg-8.6 Mg) 2 tab PO HS [facility] Last Admin: 09/02/18 22:11 Dose: 2 tab Sitagliptin Phosphate (Januvia) 100 mg PO DAILY [facility] Last Admin: 09/02/18 13:34 Dose: 100 mg - Labs Labs: 08/31/18 04:35 08/31/18 04:35 - Head Exam Head Exam: NORMAL INSPECTION - Eye Exam Eye Exam: Normal appearance - ENT Exam ENT Exam: Mucous Membranes Moist - Respiratory Exam Respiratory Exam: Clear to Ausculation Bilateral - Cardiovascular Exam Cardiovascular Exam: REGULAR RHYTHM - GI/Abdominal Exam GI & Abdominal Exam: Normal Bowel Sounds Assessment and Plan (1) Spondylolisthesis of lumbar region Status: Acute (2) Hypercholesterolemia Status: Acute (3) Diabetes mellitus Status: Chronic (4) Hypertension Status: Chronic - Assessment and Plan (Free Text) Plan: Contmeds Cont PT Dc plans as soon as drainage is significantly less
--- NOTE | 2018-09-03 08:03 | CP.PCM.PN ---
Subjective - Date & Time of Evaluation Date of Evaluation: 09/03/18 Time of Evaluation: 08:00 - Subjective Subjective: Patient seen and examined at bedside comfortable. Pain well controlled. No acute events over weekend. No new complaints. Objective - Vital Signs/Intake and Output Vital Signs (last 24 hours): Temp Pulse Resp BP Pulse Ox 98.5 F 60 18 132/79 98 09/03/18 07:58 09/03/18 07:58 09/03/18 07:58 09/03/18 07:58 09/03/18 07:58 Intake and Output: 09/03/18 09/03/18 06:59 18:59 Output Total 75 Balance -75 - Medications Medications: Current Medications Acetaminophen (Tylenol 325mg Tab) 650 mg PO Q4 PRN PRN Reason: Fever 101 degrees fahrenheit Atorvastatin Calcium (Lipitor) 20 mg PO QPM [facility] Last Admin: 09/02/18 16:51 Dose: 20 mg Cyclobenzaprine HCl (Flexeril) 5 mg PO Q8 PRN PRN Reason: Muscle spasm Last Admin: 08/30/18 17:02 Dose: 5 mg Dextrose (Dextrose 50% Inj) 0 ml IV STAT PRN; Protocol PRN Reason: Hypoglycemia Protocol Dextrose (Glutose 15) 0 gm PO ONCE PRN; Protocol PRN Reason: Hypoglycemia Protocol Ferrous Sulfate (Feosol) 325 mg PO BID [facility] Last Admin: 09/02/18 16:50 Dose: 325 mg Folic Acid (Folic Acid) 1 mg PO DAILY [facility] Last Admin: 09/02/18 09:38 Dose: 1 mg Gabapentin (Neurontin) 600 mg PO HS [facility] Last Admin: 09/02/18 22:11 Dose: 600 mg Glucagon (Glucagen Diagnostic Kit) 0 mg IM STAT PRN; Protocol PRN Reason: Hypoglycemia Protocol Insulin Human Regular (Humulin R) 0 units SC [facility]; Protocol Last Admin: 09/02/18 22:50 Dose: Not Given Losartan Potassium (Cozaar) 100 mg PO DAILY [facility] Last Admin: 09/02/18 09:38 Dose: Not Given Multivitamins/Minerals (Therapeutic-M Tab) 1 tab PO DAILY [facility] Last Admin: 09/02/18 09:37 Dose: 1 tab Ondansetron HCl (Zofran Inj) 4 mg IVP ONCE PRN PRN Reason: Nausea/Vomiting Oxycodone/Acetaminophen (Percocet 5/325 Mg Tab) 2 tab PO Q4 PRN PRN Reason: Pain, moderate (4-7) Stop: 09/04/18 16:18 Last Admin: 09/02/18 09:36 Dose: 2 tab Pantoprazole Sodium (Protonix Ec Tab) 40 mg PO DAILY [facility] Last Admin: 09/02/18 09:38 Dose: 40 mg Senna/Docusate Sodium (Senokot S 50 Mg-8.6 Mg) 2 tab PO HS [facility] Last Admin: 09/02/18 22:11 Dose: 2 tab Sitagliptin Phosphate (Januvia) 100 mg PO DAILY [facility] Last Admin: 09/02/18 13:34 Dose: 100 mg - Labs Labs: 08/31/18 04:35 08/31/18 04:35 - Back Exam Additional comments: Dressings intact BECCA drains intact b/l with mild serosang drainage mild periwound tenderness Incision CDI with dermabond sensation intact SP/DP/TN motor intact EHL/FHL/TA/G - Neurological Exam Neurological Exam: Alert, Awake, Oriented x3 Assessment and Plan (1) Spondylolisthesis of lumbar region Assessment & Plan: POD# 5 s/p L4-S1 laminectomy and fusion -Dressings changed, drains removed -PT/OT -abd binder for comfort -neurosurgically stable for d/c to home -f/u in [facility] clinic in 7-10 days -above d/w Dr. Hdz who agrees Status: Acute
[2018-09-03] MEDS: Insulin Regular 100 units/ml SC SCH ×2 (09:11→13:24)
[2018-09-03] MEDS: Multivitamin With Minerals Tab PO SCH (09:12)
[2018-09-03] MEDS: Pantoprazole 40 mg EC Tab PO SCH (09:12)
--- NOTE | 2018-09-03 11:57 | US ---
Date of service: 09/02/2018 PROCEDURE: Bilateral lower extremity venous duplex Doppler. HISTORY: pain in right leg, ankle and foot COMPARISON: None available. TECHNIQUE: Bilateral common femoral, superficial femoral, popliteal and posterior tibial veins were evaluated. Flow was assessed with color Doppler, compressibility, assessment of phasic flow and augmentation response. FINDINGS: COMMON FEMORAL VEIN: Right CFV: Unremarkable. Left CFV: Unremarkable. SUPERFICIAL FEMORAL VEIN: Right SFV: Unremarkable. Left SFV: Unremarkable. POPLITEAL VEIN: Right Popliteal: Unremarkable. Left Popliteal: Unremarkable. POSTERIOR TIBIAL VEIN: Right PTV: Unremarkable. Left PTV: Unremarkable. OTHER FINDINGS: None. IMPRESSION: No evidence of deep venous thrombosis.
[2018-09-03 12:16] VITALS: PULSE 74
[2018-09-03] MEDS: Oxycodone/Acetaminophen 5/325 mg Tab PO PRN (13:23)
[2018-09-03 15:31] VITALS: BP 111/68; RESP 20; TEMP 98; O2SAT 97
--- NOTE | 2018-09-03 19:00 | CP.PCM.DIS ---
Provider - Provider Date of Admission: 08/29/18 11:53 Attending physician: Chevy Jose MD Consults: 08/29/18 11:53 Case Management Referral Routine Comment: Physician Instructions: Reason For Exam: Reason for Referral: Discharge Planning 08/29/18 14:56 Neuro Surgery Consult Routine Comment: Consulting Provider: Tyrone Hdz Consulting Physician: Tyrone Hdz Reason for Consult: postop nsx mgmt Time Spent in preparation of Discharge (in minutes): 30 Diagnosis - Discharge Diagnosis (1) Spondylolisthesis of lumbar region Status: Acute Hospital Course - Lab Results Lab Results: Most Recent Lab Values WBC 8.1 K/uL (4.8-10.8) 08/31/18 04:35 RBC 3.34 Mil/uL (3.80-5.20) L 08/31/18 04:35 Hgb 10.2 g/dL (12.0-16.0) L 08/31/18 04:35 Hct 31.0 % (34.0-47.0) L 08/31/18 04:35 MCV 93.0 fl (81.0-99.0) 08/31/18 04:35 MCH 30.6 pg (27.0-31.0) 08/31/18 04:35 MCHC 32.9 g/dL (33.0-37.0) L 08/31/18 04:35 RDW 14.0 % (11.5-14.5) 08/31/18 04:35 Plt Count 130 K/uL (130-400) 08/31/18 04:35 Sodium 137 mmol/l (132-148) 08/31/18 04:35 Potassium 4.7 MMOL/L (3.6-5.0) 08/31/18 04:35 Chloride 102 mmol/L (98-107) 08/31/18 04:35 Carbon Dioxide 27 mmol/L (22-30) 08/31/18 04:35 Anion Gap 13 (10-20) 08/31/18 04:35 BUN 18 mg/dl (7-17) H 08/31/18 04:35 Creatinine 1.1 mg/dl (0.7-1.2) 08/31/18 04:35 Est GFR ( Amer) 60 08/31/18 04:35 Est GFR (Non-Af Amer) 49 08/31/18 04:35 POC Glucose (mg/dL) 231 mg/dL (65-110) H 09/03/18 11:08 Random Glucose 133 mg/dL (65-105) H 08/31/18 04:35 Calcium 9.7 mg/dL (8.4-10.2) 08/31/18 04:35 Blood Type A POSITIVE 08/29/18 07:00 Antibody Screen Negative 08/29/18 07:00 Crossmatch See Detail 08/29/18 07:00 BBK History Checked Patient has bt 08/29/18 07:00 - Hospital Course Hospital Course: 68 y/o female who presented with chronic lower back pain for many years which has progressively worsened over the last few months. The pain has been resistant to conservative means with PT and oral medications. She has has prior lumbar discectomy in the past which has not helped to relieve his symptoms. The pain has hindered her daily activities such as standing and stair climbing. She c/o of pain radiating to the RLE with occasional tingling as well. Patient had laminectomy completed with Dr. Hdz. Patient was discharged in stable condition without drains. Patient to follow up with PCP and Dr Hdz as outpatient Discharge Exam - Head Exam Head Exam: NORMAL INSPECTION - Eye Exam Eye Exam: Normal appearance - Respiratory Exam Respiratory Exam: NORMAL BREATHING PATTERN - Cardiovascular Exam Cardiovascular Exam: +S1, +S2 - Neurological Exam Neurological exam: Alert, Oriented x3 - Psychiatric Exam Psychiatric exam: Normal Affect, Normal Mood - Skin Skin Exam: Normal Color, Warm Discharge Plan - Discharge Medications Prescriptions: Cyclobenzaprine [Flexeril] 5 mg PO Q8 PRN #30 tab PRN Reason: Muscle Spasm Docusate Sodium/Sennosides A [Senokot S 50 MG-8.6 MG] 2 tab PO HS #14 tab Ferrous Sulfate [Feosol] 325 mg PO BID #30 tab Folic Acid 1 mg PO DAILY #30 tab oxyCODONE/Acetaminophen [Percocet 5/325 mg Tab] 1 tab PO Q6 #20 tab - Follow Up Plan Condition: STABLE Disposition: HOME/ ROUTINE Instructions: Laminectomy (DC), Postspine Surgery Precautions Additional Instructions: follow up with in 1 week follow up with in 7-10 days keep dressing dry and clean. use abd binder for comfort Referrals: Tyrone Hdz MD [Staff Provider] - Chevy Jose MD [Staff Provider] -
== END 2018-09-03 16:30 | disposition home or self-care (01) | DRG 460 ==
LOC: H.OPSURG 05:57 → H.TEL 11:53
PROVIDERS: ADMIT Family Medicine; ATTEND Family Medicine
PROC: 00PU0YZ Removal of Other Device from Spinal Canal, Open Approach (ICD-10-PCS; 2018-08-29)
PROC: 0SG10J1 Fusion of 2 or more Lumbar Vertebral Joints with Synthetic Substitute, Posterior Approach, Posterior Column, Open Approach (ICD-10-PCS; principal; 2018-08-29 07:45)
DX: M43.17 Spondylolisthesis, lumbosacral region (principal); E11.22 Type 2 diabetes mellitus with diabetic chronic kidney disease; I12.9 Hypertensive chronic kidney disease with stage 1 through stage 4 chronic kidney disease, or unspecified chronic kidney disease; N18.1 Chronic kidney disease, stage 1; E78.00 Pure hypercholesterolemia, unspecified; E78.5 Hyperlipidemia, unspecified; G89.29 Other chronic pain; M46.90 Unspecified inflammatory spondylopathy, site unspecified; M48.061 Spinal stenosis, lumbar region without neurogenic claudication; M53.2X9 Spinal instabilities, site unspecified; Z79.4 Long term (current) use of insulin; Z96.641 Presence of right artificial hip joint